=== PATIENT | male | born 1965 | race Caucasian/White ===

== ENCOUNTER 2018-04-26 14:05 | Emergency (ER) | payer MEDICAID, SELFPAY ==
[2018-04-26 14:06] VITALS: BP 138/69; PULSE 100; RESP 17; TEMP 36.7; O2SAT 97; BMI 29.5
--- NOTE | 2018-04-26 14:47 | CT_ITS ---
STUDY: CT BRAIN WITHOUT CONTRAST REASON FOR EXAM: Male, 53 years old. LAC TO HEAD AFTER FALLING, ETOH. RADIATION DOSAGE (If Supplied By Facility): CTDIvol = ( 44.99 ) mGy, DLP = ( 829.85 ) mGycm TECHNIQUE: Transaxial CT imaging of the brain was performed without administration of intravenous contrast material. Individualized dose optimization techniques were used for this CT. COMPARISON: None. FINDINGS: There is a right scalp swelling and small hematoma. There is overlying surgical clips. Normal calvarium. Normal size ventricles and extra-axial spaces for the patient's age. Normal white matter tracts of the cerebral hemispheres. Normal basal ganglia and thalami. Normal brainstem. Normal cerebellum. There is no intracranial hemorrhage. There are no findings of an acute ischemic infarction. Normal visualized paranasal sinuses. CT/Brain/Head without Contrast IMPRESSION: No intracranial hemorrhage. Electronically Signed: Bobby Seay MD at 15:53 EST Tel , Service support ,
[2018-04-26] MEDS: oxyCODONE 5 MG Tablet PO (14:53)
[2018-04-26] MEDS: Diphth,Pertuss(Acell),Tet Vac 0.5 ML Vial IM (15:10)
--- NOTE | 2018-04-26 15:51 | ED.VISSUMM ---
- ER Visit Summary Date of Service: 04/26/18 Chief Complaint: Head and History of Present Illness: The patient is a 53 M presents to the emergency supervisor finishing department injury. Patient states he was watching football today and drinking with his friends. He states he got up and was walking forward. He lost his balance and fell. He struck his head against a corner of the table. He does not think he lost consciousness. The patient did have significant bleeding. It was unable to be controlled at home. He was brought in by squad. The patient does take Plavix. He admits to drinking daily. He denies any other injury. He states his been compliant with his medications. Physical Examination: Vital signs reviewed General: Well-nourished, well-developed Head: Normocephalic, 5 cm full-thickness laceration on the right parietal scalp. There is active bleeding. A calvarium is intact. The subgaleal is intact. Eyes: Pupils equal and reactive, extraocular muscles intact Neck, supple, no lymphadenopathy Heart: Regular rate and rhythm Respiratory: No distress, clear bilaterally Abdomen: Soft, nontender, nondistended, no peritoneal signs Back: Nontender Extremities: Nontender, no edema, no cords Skin: Normal color no rash Neuro: Alert and oriented, no focal or lateralizing deficits Test Results: [] Emergency Department Course and Treatment: The patient presents after mechanical fall. He is on Plavix. I did evaluate his laceration immediately on arrival. He did have some mild bleeding but there was no arterial spurt. His wound was anesthetized immediately. It was closed with 10 artis. Hemostasis was achieved. Patient underwent head CT. There is no evidence of acute intracranial process. The patient was observed. He ambulated throughout the emergency department. He had no evidence of other injury. At this time, I do feel that he is safe for discharge. He was counseled on concerning symptoms and reasons to return. He is a GCS of 15 and no other injury. He will follow-up in 10 days for staple removal. Treatment Plan: [] Disposition: Discharge Impression: 1. Mechanical fall 2. 5 cm scalp laceration with staple closure This note was generated with [employer] dictation software. It may contain incorrect words, spelling, and punctuation that were not noted in review of the chart prior to signing ED Disposition - Plan for ED Patient: Chief Complaint: Laceration Instructions: ED Laceration Scalp Stitch Or Stap Referrals: Stuart Bacon MD [Primary Care Provider] - 10 Day for suture removal
[2018-04-26 16:03] VITALS: BP 134/69; PULSE 77; RESP 16; O2SAT 98
== END 2018-04-26 16:05 | disposition home or self-care (01) ==
LOC: ED 15:33
PROVIDERS: Emergency Provider Emergency Medicine; Family Provider Family Medicine; PCP Family Medicine
DX: S01.01XA Laceration without foreign body of scalp, initial encounter (principal); W18.39XA Other fall on same level, initial encounter; Y93.01 Activity, walking, marching and hiking; Y99.8 Other external cause status; I25.10 Atherosclerotic heart disease of native coronary artery without angina pectoris; I10 Essential (primary) hypertension; Z79.02 Long term (current) use of antithrombotics/antiplatelets; Z79.899 Other long term (current) drug therapy; Z72.0 Tobacco use
CPT/HCPCS: 12002; 70450; 90471; 90715; 99284

== ENCOUNTER 2018-07-10 18:05 | Inpatient (IN) | payer MEDICAID, SELFPAY ==
[2018-07-10] VITALS (8 sets, daily range): BP systolic 146–156; BP diastolic 88–91; PULSE 96–103; RESP 12–22; TEMP 36.8–37.2; O2SAT 85–94; BMI 31.6; BMI 28.0; BMI 28.1
--- NOTE | 2018-07-10 18:17 | EKG12_ITS ---
Test Reason : CP Blood Pressure : / mmHG Vent. Rate : 103 BPM Atrial Rate : 103 BPM P-R Int : 150 ms QRS Dur : 082 ms QT Int : 372 ms P-R-T Axes : 051 054 058 degrees QTc Int : 487 ms Sinus tachycardia Possible Left atrial enlargement Septal infarct , age undetermined Abnormal ECG Confirmed by ROEMRO ARIZMENDI ([id number]), food expeditor ROBERT DIALLO ([id number]) on 07/13/2018 4:36:45 PM Referred By: JEANETTE Confirmed By:ROMERO ARIZMENDI
--- NOTE | 2018-07-10 18:17 | RAD_ITS ---
STUDY: X-RAY CHEST REASON FOR EXAM: Male, 53 years old. Shortness of breath for 3 weeks. TECHNIQUE: PA and lateral views of the chest. COMPARISON: None. FINDINGS: Telemetry wires overlie the chest. The lungs are well expanded. There is atelectasis versus infiltrative changes at the lung bases. There is no demonstrated pleural abnormality. Normal size heart. Normal mediastinum and jazmine. Normal visualized pulmonary arteries. There is atherosclerotic calcification of the aortic arch with tortuosity. Normal visualized thoracic spine. Normal visualized ribs, clavicles, and shoulders. There is no demonstrated abnormality of the visualized soft tissue structures of the upper abdomen. RAD/Chest PA and Lateral IMPRESSION: Atelectasis versus infiltrate at the lung bases. Electronically Signed: Vern Acevedo DO at 18:58 EDT Tel [phone], Service support ,
--- NOTE | 2018-07-10 18:21 | ED.VIS.GEN ---
History of Present Illness Chief Complaint: Chest Pain Detail of Chief Complaint: Shortness of breath, chest pain, productive cough Informant: Patient Onset: Weeks Timing: Intermittent Quality: Central chest pain with coughing times 3 days Location: Central chest Current Severity: Mild Maximum Severity: Moderate Worsened by: Shortness of breath increased with activity Relieved by: Nothing Associated Symptoms: Productive cough and noncompliance with medication Narrative: Patient is a middle-aged gentleman who discontinue taking his meds 1 week ago because of friend dying. He is a smoker of 15 cigarettes/day. He reports productive cough. He reports chest pain with breathing and shortness of breath. States the cough is been present for 2 months. The chest pain and shortness of breath for the past several days. Does report dyspnea on exertion. Denies orthopnea or PND. He does report swelling of his legs. He states he has a stent left lower extremity secondary to peripheral arterial disease. He has no known cardiac disease. - Past Medical History (1) Hypokalemia Status: Acute (2) Hyponatremia Status: Acute (3) Liver mass Status: Acute (4) Seizures Status: Acute (5) PAD (peripheral artery disease) Status: Chronic Past Medical History - Allergies and Home Meds Allergies/Adverse Reactions: Allergies ANTIBIOTIC OINTMENT Adverse Reaction (Uncoded 07/10/18 18:06) Hives Primary Care Physician: Stuart Bacon MD [Primary Care Provider] - Prior records reviewed: Yes Surgical History: - - trauma with left head and face and jaw, s/p trach. Lives: Alone Smoking Status: Current every day smoker Alcohol: Occasional Drugs: None - Family History Sibling Family History: Reports: - - brother is alcoholic Review of Systems General: Reports: Malaise. Denies: Chills, Fever, Sweats, Weight loss Eyes: Denies: Visual changes - bilaterally, Diplopia ENT: Denies: Bilateral ear pain, Rhinorrhea, Sore throat Cardiovascular: Reports: Chest pain. Denies: Palpitations Respiratory: Reports: Dyspnea, Cough, Sputum, Dyspnea on exertion, Paroxysmal nocturnal dyspnea. Denies: Orthopnea Gastrointestinal: Denies: Abdominal pain, Nausea, Vomiting, Diarrhea, Melena, Hematochezia Genitourinary: Denies: Dysuria, Hematuria, Frequency Musculoskeletal: Denies: Back pain, Extremity Pain Skin: Denies: Rash, Wounds Neurological: Denies: Headache, Weakness, Numbness Psych: Reports: Anxiety Hematologic: Denies: Easy bruising, Easy bleeding Allergy: Reports: Uticaria Physical Exam Vital Signs/Narrative: Vital Signs Temp Pulse Resp BP Pulse Ox 07/10/18 18:07 99.0 F 103 H 20 H 146/88 H 85 Inital Vital Signs reviewed: Yes General: Well nourished, Well developed, No Acute Distress, Acute Distress Head: Normocephalic, Atraumatic Eyes: Perrl, EOMI. Negative for: Pale conjunctiva ENT: Moist mucous membranes, No rhinorrhea, TM's clear Neck: Supple, Nontender, No lymphadenopathy, No JVD Cardiovascular: Regular rate, Regular rhythm, No murmurs, Normal S1, Normal S2, Tachycardia Respiratory: Chest nontender, Rhonchi, Wheezing, Diminished, Decreased Air Movement Abdomen: Soft, Nontender, Nondistended, Normal bowel sounds, No masses. Negative for: Hepatomegaly, Splenomegaly Back: Nontender, Normal Inspection Extremities: Nontender, Edema - 1+ pitting edema bilaterally, - - Stigmata of peripheral arterial disease with diminished pulses Skin: Normal color. Negative for: Cyanosis, Jaundice Neurological: Alert, Oriented x3, Cranial nerves II-XII grossly intact, Normal Strength, Normal Sensation, - - Gait was not assessed. Patient has alcohol odor to his breath Psychological: Normal affect, Normal Mood Diagnostic/Tx/Re-eval Chest X-Ray - ED: 2 View, Read by ED Physician, Normal, Heart, Bony Structures, No Acute Disease, Chronic Changes, Left Infiltrate Impressions Chest X-Ray 07/10/18 18:17 IMPRESSION: Atelectasis versus infiltrate at the lung bases. Electronically Signed: Vern Acevedo DO at 18:58 EDT Tel [phone], Service support , Chest CTA 07/10/18 19:12 IMPRESSION: 1. No evidence of pulmonary embolus. 2. No aortic dissection or aneurysm. 3. Patchy nodular infiltrates in the medial right upper lobe, lingula and left lower lobe. Repeat examination following treatment should be considered to rule out underlying mass. 4. Mediastinal and hilar lymphadenopathy. 5. Enlarged fatty infiltrated liver. Electronically Signed: Vern Acevedo DO at 20:13 EDT Tel [phone], Service support , 07/10/18 18:17 Chest PA and Lateral [RAD] Stat 07/10/18 19:12 CTA Chest W/WO Contrast [CT] Stat Laboratory Results 07/10/18 07/10/18 07/10/18 18:18 18:18 18:45 WBC 11.8 H RBC 4.56 L Hgb 14.5 Hct 43.0 MCV 94.3 H MCH 31.8 MCHC 33.7 RDW 13.4 RDW Differential 46.2 H Plt Count 59 L MPV 11.5 Immature Gran % (Auto) 0.300 Neut % (Auto) 72.5 H Lymph % (Auto) 18.2 L [place] % (Auto) 8.6 Eos % (Auto) 0.1 Baso % (Auto) 0.3 Absolute Neuts (auto) 8.6 H Absolute Lymphs (auto) 2.15 Total Counted Not Reportable Sodium 128 L Potassium 3.0 L Chloride 93 L Carbon Dioxide 25.0 Anion Gap 10 BUN 3 L Creatinine 0.53 L Estim Creat Clear Calc 161.19 Est GFR (MDRD) Af Amer 209 Est GFR (MDRD) Non-Af 173 BUN/Creatinine Ratio 5.7 L Glucose 107 H Lactic Acid 1.8 Calcium 7.8 L Troponin I < 0.015 - Rhythm Strip Rhythm Strip: Sinus Rhythm Rate: 110 Ectopy: None - EKG Initial EKG Interpretation: Sinus Rhythm - Ventricular rate is 103. Decreased anterior force. CA interval, QRS duration, QT interval and axis are normal., Sinus Tachycardia - Medical Decision Making Since patient is hypoxic, tachycardic tachypnic with abnormal respiratory sounds will obtain chest x-ray and appropriate blood work. Differential include COPD, bronchitis, influenza, pneumonia, pulmonary embolus and CHF. Doubt the latter to i.e. pulmonary embolus and CHF. Suspect chest pain is secondary to his respiratory illness and not cardiac. Since x-ray was not very remarkable and patient was hypoxic CTA was obtained to look for pulmonary embolus. There is no evidence of pulmonary and was. There is multilobar patchy infiltrates and mediastinal/hilar lymphadenopathy. Patient was treated with DuoNeb, albuterol and IV antibiotics. He will require full admission. ED Disposition - Plan for ED Patient: Disposition: Acute Care Hospital [facility] Diagnosis: Multilobar lung infiltrate, Acute respiratory failure with hypoxia, Mediastinal lymphadenopathy, Bronchospasm, PAD (peripheral artery disease) Referrals: Stuart Bacon MD [Primary Care Provider] -
--- NOTE | 2018-07-10 18:25 | ED.DCSUM_ITS ---
History of Present Illness Chief Complaint: Chest Pain Detail of Chief Complaint: Shortness of breath, chest pain, productive cough Informant: Patient Onset: Weeks Timing: Intermittent Quality: Central chest pain with coughing times 3 days Location: Central chest Current Severity: Mild Maximum Severity: Moderate Worsened by: Shortness of breath increased with activity Relieved by: Nothing Associated Symptoms: Productive cough and noncompliance with medication Narrative: Patient is a middle-aged gentleman who discontinue taking his meds 1 week ago because of friend dying. He is a smoker of 15 cigarettes/day. He reports productive cough. He reports chest pain with breathing and shortness of breath. States the cough is been present for 2 months. The chest pain and shortness of breath for the past several days. Does report dyspnea on exertion. Denies orthopnea or PND. He does report swelling of his legs. He states he has a stent left lower extremity secondary to peripheral arterial disease. He has no known cardiac disease. - Past Medical History (1) Hypokalemia Status: Acute (2) Hyponatremia Status: Acute (3) Liver mass Status: Acute (4) Seizures Status: Acute (5) PAD (peripheral artery disease) Status: Chronic Past Medical History - Allergies and Home Meds Allergies/Adverse Reactions: Allergies ANTIBIOTIC OINTMENT Adverse Reaction (Uncoded 07/10/18 18:06) Hives Primary Care Physician: Stuart Bacon MD [Primary Care Provider] - Prior records reviewed: Yes Surgical History: - - trauma with left head and face and jaw, s/p trach. Lives: Alone Smoking Status: Current every day smoker Alcohol: Occasional Drugs: None - Family History Sibling Family History: Reports: - - brother is alcoholic Review of Systems General: Reports: Malaise. Denies: Chills, Fever, Sweats, Weight loss Eyes: Denies: Visual changes - bilaterally, Diplopia ENT: Denies: Bilateral ear pain, Rhinorrhea, Sore throat Cardiovascular: Reports: Chest pain. Denies: Palpitations Respiratory: Reports: Dyspnea, Cough, Sputum, Dyspnea on exertion, Paroxysmal nocturnal dyspnea. Denies: Orthopnea Gastrointestinal: Denies: Abdominal pain, Nausea, Vomiting, Diarrhea, Melena, Hematochezia Genitourinary: Denies: Dysuria, Hematuria, Frequency Musculoskeletal: Denies: Back pain, Extremity Pain Skin: Denies: Rash, Wounds Neurological: Denies: Headache, Weakness, Numbness Psych: Reports: Anxiety Hematologic: Denies: Easy bruising, Easy bleeding Allergy: Reports: Uticaria Physical Exam Vital Signs/Narrative: Vital Signs Temp Pulse Resp BP Pulse Ox 07/10/18 18:07 99.0 F 103 H 20 H 146/88 H 85 Inital Vital Signs reviewed: Yes General: Well nourished, Well developed, No Acute Distress, Acute Distress Head: Normocephalic, Atraumatic Eyes: Perrl, EOMI. Negative for: Pale conjunctiva ENT: Moist mucous membranes, No rhinorrhea, TM's clear Neck: Supple, Nontender, No lymphadenopathy, No JVD Cardiovascular: Regular rate, Regular rhythm, No murmurs, Normal S1, Normal S2, Tachycardia Respiratory: Chest nontender, Rhonchi, Wheezing, Diminished, Decreased Air Movement Abdomen: Soft, Nontender, Nondistended, Normal bowel sounds, No masses. Negative for: Hepatomegaly, Splenomegaly Back: Nontender, Normal Inspection Extremities: Nontender, Edema - 1+ pitting edema bilaterally, - - Stigmata of peripheral arterial disease with diminished pulses Skin: Normal color. Negative for: Cyanosis, Jaundice Neurological: Alert, Oriented x3, Cranial nerves II-XII grossly intact, Normal Strength, Normal Sensation, - - Gait was not assessed. Patient has alcohol odor to his breath Psychological: Normal affect, Normal Mood Diagnostic/Tx/Re-eval Chest X-Ray - ED: 2 View, Read by ED Physician, Normal, Heart, Bony Structures, No Acute Disease, Chronic Changes, Left Infiltrate Impressions Chest X-Ray 07/10/18 18:17 IMPRESSION: Atelectasis versus infiltrate at the lung bases. Electronically Signed: Vern Acevedo DO at 18:58 EDT Tel [phone], Service support , Chest CTA 07/10/18 19:12 IMPRESSION: 1. No evidence of pulmonary embolus. 2. No aortic dissection or aneurysm. 3. Patchy nodular infiltrates in the medial right upper lobe, lingula and left lower lobe. Repeat examination following treatment should be considered to rule out underlying mass. 4. Mediastinal and hilar lymphadenopathy. 5. Enlarged fatty infiltrated liver. Electronically Signed: Vern Acevedo DO at 20:13 EDT Tel [phone], Service support , 07/10/18 18:17 Chest PA and Lateral [RAD] Stat 07/10/18 19:12 CTA Chest W/WO Contrast [CT] Stat Laboratory Results 07/10/18 07/10/18 07/10/18 18:18 18:18 18:45 WBC 11.8 H RBC 4.56 L Hgb 14.5 Hct 43.0 MCV 94.3 H MCH 31.8 MCHC 33.7 RDW 13.4 RDW Differential 46.2 H Plt Count 59 L MPV 11.5 Immature Gran % (Auto) 0.300 Neut % (Auto) 72.5 H Lymph % (Auto) 18.2 L [place] % (Auto) 8.6 Eos % (Auto) 0.1 Baso % (Auto) 0.3 Absolute Neuts (auto) 8.6 H Absolute Lymphs (auto) 2.15 Total Counted Not Reportable Sodium 128 L Potassium 3.0 L Chloride 93 L Carbon Dioxide 25.0 Anion Gap 10 BUN 3 L Creatinine 0.53 L Estim Creat Clear Calc 161.19 Est GFR (MDRD) Af Amer 209 Est GFR (MDRD) Non-Af 173 BUN/Creatinine Ratio 5.7 L Glucose 107 H Lactic Acid 1.8 Calcium 7.8 L Troponin I < 0.015 - Rhythm Strip Rhythm Strip: Sinus Rhythm Rate: 110 Ectopy: None - EKG Initial EKG Interpretation: Sinus Rhythm - Ventricular rate is 103. Decreased anterior force. RI interval, QRS duration, QT interval and axis are normal., Sinus T achycardia - Medical Decision Making Since patient is hypoxic, tachycardic tachypnic with abnormal respiratory sounds will obtain chest x-ray and appropriate blood work. Differential include COPD, bronchitis, influenza, pneumonia, pulmonary embolus and CHF. Doubt the latter to i.e. pulmonary embolus and CHF. Suspect chest pain is secondary to his respiratory illness and not cardiac. Since x-ray was not very remarkable and patient was hypoxic CTA was obtained to look for pulmonary embolus. There is no evidence of pulmonary and was. There is multilobar patchy infiltrates and mediastinal/hilar lymphadenopathy. Patient was treated with DuoNeb, albuterol and IV antibiotics. He will require full admission. ED Disposition - Plan for ED Patient: Disposition: Acute Care [facility] Diagnosis: Multilobar lung infiltrate, Acute respiratory failure with hypoxia, Mediastinal lymphadenopathy, Bronchospasm, PAD (peripheral artery disease) Referrals: Stuart Bacon MD [Primary Care Provider] -
[2018-07-10] MEDS: 0.9% Normal Saline 1,000 ML 150 ML IV (18:47)
[2018-07-10 18:54] LABS: Absolute Lymphocyte Count 2.15 X10^3/ul (0.83-4.51); Absolute Neutrophil Count 8.6 X10^3/uL (2.0-7.7); Basophil# 0.03 X10^3/uL; Basophil% 0.3 % (0-1); Eosinophil# 0.01 X10^3/uL; Eosinophils% 0.1 % (0-5); Hemoglobin 14.5 g/dl (13.0-16.5); Lymphocyte # 2.15 X10^3/ul (4.0); Lymphocyte % 18.2 % (19-41); Mean Corp Hgb Conc 33.7 g/gl (32-36); Mean Corpuscular Hgb 31.8 pg (27.0-32.0); Mean Corpuscular Volume 94.3 fL (80-94); Mean Platelet Vol. 11.5 fl (6.2-12.0); Monocyte# 1.02 X10^3/uL; Monocyte% 8.6 % (0-10); Neutrophil % 72.5 % (47-70); Platelet Count 59 K/mm3 (150-450); RBC Distribution Width CV 13.4 % (11.6-14.6); RBC Distribution Width SD 46.2 fl (35.1-43.9); Red Blood Count 4.56 M/mm3 (4.6-6.2); White Blood Count 11.8 K/mm3 (4.4-11.0)
[2018-07-10 18:55] LABS: POSITIVE COUNT NO; POSITIVE DIFFERENTIAL NO; POSITIVE MORPHOLOGY NO
[2018-07-10 19:06] LABS: Anion Gap 10 (5-15); BUN 3 mg/dL (7-18); BUN/Creat Ratio 5.7 RATIO (10-20); Calcium,Total 7.8 mg/dL (8.5-10.1); Chloride 93 mmol/L (98-107); Creatinine, Serum 0.53 mg/dL (0.70-1.30); EST Glomerular Filtration Rate 173 mL/min (>60); Est Glom Filt Rate - Afr Amer 209 mL/min (>60); Estimated Creatinine Clearance 161.19 ml/min; Glucose 107 mg/dL (74-106); Sodium Level 128 mmol/L (136-145)
--- NOTE | 2018-07-10 19:12 | CT_ITS ---
STUDY: CTA CHEST REASON FOR EXAM: Male, 53 years old. Hypoxia. Pulse oximeter 84%. RADIATION DOSAGE (If Supplied By Facility): CTDIvol = ( 12.09 ) mGy, DLP = ( 525.87 ) mGycm TECHNIQUE: The examination was performed with the intravenous administration of Isovue 370 100ML IV. Post-processing of the angiographic images was performed, with multiplanar reformation and 3D reconstruction. Individualized dose optimization techniques were used for this CT. COMPARISON: Chest, July 10, 2018. FINDINGS: Normal enhancement of the main pulmonary artery and right and left pulmonary arteries. Normal enhancement of the bilateral peripheral pulmonary arteries. There is no demonstrated pulmonary embolism. There is mild atherosclerosis of the thoracic aorta without aneurysm. There is no demonstrated aortic dissection. Normal heart and pericardium. There are calcifications of the coronary arteries. There is prevascular, AP window and subcarinal lymphadenopathy. Largest node in the subcarinal region. Measures 1.2 x 3.6 x 1.9 cm. There is minimal hilar lymphadenopathy. Normal visualized trachea and bronchi. The lungs are well expanded. There is evidence of a nodular infiltrate in the anteromedial right upper lobe there is also a 8 mm nodular density slightly more lateral in the right upper lobe best seen on image 141 of series 2. There is a patchy density in the lingula as well as infiltrate at the left lung base. Normal pleura. Normal chest wall structures. Normal osseous structures. There is diffuse fatty infiltration of an enlarged liver. Remainder of the visualized upper abdomen is normal. CT/CTA Chest W/WO Contrast IMPRESSION: 1. No evidence of pulmonary embolus. 2. No aortic dissection or aneurysm. 3. Patchy nodular infiltrates in the medial right upper lobe, lingula and left lower lobe. Repeat examination following treatment should be considered to rule out underlying mass. 4. Mediastinal and hilar lymphadenopathy. 5. Enlarged fatty infiltrated liver. Electronically Signed: Vern Acevedo DO at 20:13 EDT Tel [phone], Service support ,
[2018-07-10] MEDS: Morphine 4 MG/ML Syringe IV (19:17)
[2018-07-10] MEDS: Ondansetron 4 MG/2 ML Vial IV (19:17)
[2018-07-10] MEDS: Albuterol 2.5 MG/3 ML VIAL.NEB. INHALATION (19:18)
[2018-07-10] MEDS: Ipratropium/Albuterol Sulfate 3 ML AMPUL.NEB INHALATION ×2 (19:18→23:28)
[2018-07-10 19:20] LABS: Lactic Acid 1.8 mmol/L (0.4-2.0)
[2018-07-10] MEDS: levoFLOXacin IV 750 MG/150 ML BAG 100 MG IV (20:25)
[2018-07-10] MEDS: MethylPREDNISolone 125 MG/2 ML Vial 60 MG IV (20:25)
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
--- NOTE | 2018-07-10 21:15 | CPS ---
Pt taken off of bipap and placed on 50% venturi mask for transport to PCU 125.
[2018-07-10 21:50] LABS: Magnesium 1.8 mg/dL (1.6-2.6); Phosphorus 2.7 mg/dL (2.5-4.9)
[2018-07-10 22:33] LABS: AST(SGOT) 73 U/L (15-37); Alanine Aminotransfer ALT/SGPT 55 U/L (16-61); Albumin, Serum 3.2 g/dL (3.2-5.0); Alkaline Phosphatase 88 U/L (45-117); Bilirubin, Direct 0.14 mg/dL (0.00-0.30); Globulin 4.8 g/dL (2.2-4.2)
[2018-07-10 22:57] LABS: Amphetamine Urine VISTA NEGATIVE (<1000 ng/mL); Barbiturate Urine VISTA NEGATIVE (< 200 ng/mL); Benzodiazepine Urine VISTA NEGATIVE (< 200 ng/mL); Cocaine Urine VISTA NEGATIVE (< 300 ng/mL); Ecstacy Urine VISTA NEGATIVE (< 500 ng/mL); Methadone Urine VISTA NEGATIVE (< 300 ng/mL); PCP Urine VISTA NEGATIVE (< 25 ng/mL); THC Urine VISTA NEGATIVE (< 50 ng/mL); Vista UDS pH Range 6
[2018-07-10] MEDS: Ceftriaxone 1 GM/50 ML BAG IV (23:24)
[2018-07-10] MEDS: guaiFENesin 1,200 MG Tablet 1200 MG PO (23:28)
[2018-07-10] MEDS: levETIRAcetam 1,000 MG Tablet 1000 MG PO (23:29)
[2018-07-10] MEDS: 0.9% NaCl Peripheral Flush Adult/Peds IV (23:33)
[2018-07-11] VITALS (26 sets, daily range): BP systolic 137–190; BP diastolic 72–102; PULSE 78–113; RESP 14–24; TEMP 36.4–36.8; O2SAT 91–99
--- NOTE | 2018-07-11 00:05 | NURSING ---
One beer given to pt. at this time as per nurse communication orders. Pt. drinking this beer at this time.
[2018-07-11] MEDS: 0.9% Normal Saline 1,000 ML 125 ML IV ×2 (03:49→21:19)
[2018-07-11] MEDS: 0.9% NaCl Peripheral Flush Adult/Peds IV (05:31)
[2018-07-11] MEDS: Ipratropium/Albuterol Sulfate 3 ML AMPUL.NEB INHALATION ×5 (06:34→22:52)
--- NOTE | 2018-07-11 06:52 | CPS ---
pt placed on 6L HFNC, spo2 91%
--- NOTE | 2018-07-11 07:12 | NURSING ---
One can of beer given to pt. per his request. Pt. states he drinks his first beer early in the morning before he eats anything.
[2018-07-11] MEDS: Thiamine Hydrochloride 100 MG Tablet PO ×2 (08:37→16:19)
[2018-07-11] MEDS: Aspirin 81 MG TAB.CHEW PO (08:37)
[2018-07-11] MEDS: Multivitamins,Ther W-Minerals Tablet 1 TABLET PO (08:37)
[2018-07-11] MEDS: Folic Acid 1 MG Tablet PO (08:37)
[2018-07-11] MEDS: oxyCODONE 5 MG Tablet PO ×3 (08:41→22:18)
[2018-07-11] MEDS: Pantoprazole Sodium 40 MG Tablet PO (09:26)
[2018-07-11] MEDS: Lisinopril 20 MG Tablet PO (09:26)
[2018-07-11] MEDS: Clopidogrel Bisulfate 75 MG Tablet PO (09:26)
[2018-07-11] MEDS: guaiFENesin 1,200 MG Tablet 1200 MG PO ×2 (09:27→21:21)
[2018-07-11] MEDS: Enoxaparin 40 MG/0.4 ML Syringe SC (09:27)
[2018-07-11] MEDS: Paroxetine 20 MG Tablet PO (09:27)
[2018-07-11] MEDS: levETIRAcetam 1,000 MG Tablet 1000 MG PO ×2 (09:34→21:21)
[2018-07-11] MEDS: amLODIPine 10 MG Tablet PO (09:35)
--- NOTE | 2018-07-11 10:13 | NURSING ---
Patient given beer per ordered dose at this time. Full can administered at this time.
[2018-07-11] MEDS: hydrALAZINE 20 MG/ML Vial 10 MG IV (11:01)
--- NOTE | 2018-07-11 13:00 | PCM.PN.HOSP ---
Patient Problems: Active and Suspected Problems Multilobar lung infiltrate (Acute) Acute respiratory failure with hypoxia (Acute) Mediastinal lymphadenopathy (Acute) Bronchospasm (Acute) Sepsis (Acute) Subjective: Patient was admitted with a complaint of shortness of breath and pleuritic chest pain with associated subjective fever and chills and a cough productive of clear sputum as well as wheezing and upper respiratory tract symptoms. Chest x-ray showed atelectasis versus infiltrate in bilateral lower lung bases. CT of chest showed patchy nodular infiltrates in the right medial upper lobe and left lower lobe as well as in the mediastinal hilar lymphadenopathy. He is being managed for sepsis due to multilobar community acquired pneumonia as well as acute hypoxic and hypercarbic respiratory failure. Patient seen and examined. He still is short of breath but states is better. He is on 5 L of oxygen but is not on oxygen at home. He still has a cough which is productive of clear sputum. He denies any palpitations or dizziness, abdominal pain, diarrhea vomiting. Review of systems otherwise negative. Of note, he was saturating at 85% on room air on admission. Labs and vitals reviewed. Vitals/I&O's: Vital Signs Temp Pulse Resp BP Pulse Ox 97.6 F L 98 20 H 160/72 H 94 07/11/18 10:47 07/11/18 11:01 07/11/18 10:59 07/11/18 12:28 07/11/18 10:47 Oxygen Flow Rate (L/min) 6 Oxygen Delivery Method Nasal Cannula Weight: 195 lb 15.855 oz Body Mass Index (BMI) 28.0 Finger Stick Blood Glucose 103 Intake and Output for Last 24 Hours 07/09/18 07/10/18 07/11/18 23:59 23:59 23:59 Intake Total 566 / 566 2138 / 2138 Output Total 500 / 500 1075 / 1075 Balance 66 / 66 1063 / 1063 General: Alert, Oriented x3, Cooperative, No apparent distress HEENT: Atraumatic, PERRLA, EOMI, Normocephalic Oral: Dry Mucosa Neck: Supple, No JVD, Negative Carotid Bruits Lungs: - - has coarse crackles in mid and lower lung coto, with wheezing. on 6L of oxygen Cardiovascular: Regular rate, Regular Rhythm, Normal S1, Normal S2, No murmurs Abdomen: Bowel Sounds Present, Soft, Non Tender, Non-Distended, No Hepato-splenomegaly Extremities: No clubbing, No cyanosis, No edema, Capillary Refill Less than 3 Seconds Skin: No rashes, No breakdown Musculoskeletal: No Tenderness to Palpation of Joints or Extremities Lymphatic: No Cervical, Supraclavicular, or Inguinal Adenopathy Neurological: Cranial nerves II-XII grossly intact, Neuro grossly intact, Motor Exam 5/5 strength throughout Psych/Mental Status: Normal Affect, Appropriate, Alert and oriented to time, place, person, mood and affect Microbiology Past 72 Hours 07/10/18 22:20 Urine, Clean Catch Streptococcus pneumoniae Antigen (M - Final 07/10/18 22:20 Urine, Clean Catch Legionella Antigen - Final Laboratory Results 07/10/18 18:18: WBC 11.8 H, RBC 4.56 L, Hgb 14.5, Hct 43.0, MCV 94.3 H, MCH 31.8, MCHC 33.7, RDW 13.4, RDW Differential 46.2 H, Plt Count 59 L, MPV 11.5, Immature Gran % (Auto) 0.300, Neut % (Auto) 72.5 H, Lymph % (Auto) 18.2 L, [place] % (Auto) 8.6, Eos % (Auto) 0.1, Baso % (Auto) 0.3, Absolute Neuts (auto) 8.6 H, Absolute Lymphs (auto) 2.15, Total Counted Not Reportable 07/10/18 18:18: Sodium 128 L, Potassium 3.0 L, Chloride 93 L, Carbon Dioxide 25.0, Anion Gap 10, BUN 3 L, Creatinine 0.53 L, Estim Creat Clear Calc 161.19, Est GFR (MDRD) Af Amer 209, Est GFR (MDRD) Non-Af 173, BUN/Creatinine Ratio 5.7 L, Glucose 107 H, Calcium 7.8 L, Troponin I < 0.015 07/10/18 18:18: Total Bilirubin 0.40, Direct Bilirubin 0.14, AST 73 H, ALT 55, Alkaline Phosphatase 88, Total Protein 8.0, Albumin 3.2, Globulin 4.8 H 07/10/18 18:18: Phosphorus 2.7, Magnesium 1.8 07/10/18 18:18: Ethyl Alcohol 322.0 H* 07/10/18 18:45: Lactic Acid 1.8 03/15/19 22:20: Urine Opiates Screen POSITIVE H, Urine Methadone Screen NEGATIVE, Ur Barbiturates Screen NEGATIVE, Ur Phencyclidine Scrn NEGATIVE, Ur Amphetamines Screen NEGATIVE, U Methamphetamin-MDMA NEGATIVE, U Benzodiazepines Scrn NEGATIVE, Urine Cocaine Screen NEGATIVE, U Cannabinoids Screen NEGATIVE, Ur Drug Screen Comment Diagnostic Data Chest X-Ray 07/10/18 18:17 IMPRESSION: Atelectasis versus infiltrate at the lung bases. Electronically Signed: Vern Acevedo DO at 18:58 EDT Tel [phone], Service support , Chest CTA 07/10/18 19:12 IMPRESSION: 1. No evidence of pulmonary embolus. 2. No aortic dissection or aneurysm. 3. Patchy nodular infiltrates in the medial right upper lobe, lingula and left lower lobe. Repeat examination following treatment should be considered to rule out underlying mass. 4. Mediastinal and hilar lymphadenopathy. 5. Enlarged fatty infiltrated liver. Electronically Signed: Vern Acevedo DO at 20:13 EDT Tel [phone], Service support , Current Medications Acetaminophen (Tylenol) 650 mg PO Q4H PRN PRN PRN Reason: Fever, pain Al Hydroxide/Mg Hydroxide (Mylanta Ii) 30 ml PO Q6H PRN PRN PRN Reason: Gastric Burning Albuterol Sulfate (Ventolin Aerosols) 2.5 mg INHALATION Q2H PRN PRN PRN Reason: SHORTNESS OF BREATH Albuterol/Ipratropium (Duoneb) 3 ml INHALATION Q4H.RT [facility] Last Admin: 07/11/18 10:58 Dose: 3 ml Amlodipine Besylate (Norvasc) 10 mg PO DAILY [facility] Last Admin: 07/11/18 09:35 Dose: 10 mg Aspirin (Aspirin, Baby) 81 mg PO DAILY@0800 [facility] Last Admin: 07/11/18 08:37 Dose: 81 mg Clopidogrel Bisulfate (Plavix) 75 mg PO DAILY [facility] Last Admin: 07/11/18 09:26 Dose: 75 mg Docusate Sodium (Colace) 200 mg PO BID PRN PRN PRN Reason: Constipation Enoxaparin Sodium (Lovenox) 40 mg SC DAILY@1000 [facility] Last Admin: 07/11/18 09:27 Dose: 40 mg Folic Acid (Folic Acid) 1 mg PO DAILY@0800 [facility] Stop: 07/13/18 08:01 Last Admin: 07/11/18 08:37 Dose: 1 mg Guaifenesin (Mucinex) 1,200 mg PO BID [facility] Last Admin: 07/11/18 09:27 Dose: 1,200 mg Hydralazine HCl (Apresoline Iv) 10 mg IV Q4H PRN PRN PRN Reason: SBP > 160 Last Admin: 07/11/18 11:01 Dose: 10 mg Sodium Chloride () 1,000 mls @ 125 mls/hr IV .Q8H [facility] Last Admin: 07/11/18 08:29 Dose: Not Given Azithromycin 500 mg/ Dextrose 255 mls @ 250 mls/hr IV Q24H [facility] Stop: 07/12/18 23:02 Last Admin: 07/10/18 23:57 Dose: 250 mls/hr Ceftriaxone Sodium (Rocephin) 1 gm in 50 mls @ 100 mls/hr IV Q24H [facility] Last Admin: 07/10/18 23:24 Dose: 100 mls/hr Levetiracetam (Keppra Tablet) 1,000 mg PO BID [facility] Last Admin: 07/11/18 09:34 Dose: 1,000 mg Lisinopril (Zestril) 20 mg PO DAILY [facility] Last Admin: 07/11/18 09:26 Dose: 20 mg Lorazepam (Ativan) 2 mg PO Q2H PRN PRN; Protocol PRN Reason: CIWA score > 8 but <15 Lorazepam (Ativan) 2 mg PO UD PRN; Protocol PRN Reason: CIWA score >/=15. Lorazepam (Ativan) 2 mg IV Q2H PRN PRN; Protocol PRN Reason: CIWA score > 8 but <15 Lorazepam (Ativan) 2 mg IV UD PRN; Protocol PRN Reason: CIWA score >/=15. Magnesium Hydroxide (Milk Of Magnesia) 30 ml PO DAILY PRN PRN Reason: Constipation Methylprednisolone (Solu-Medrol) 40 mg IV Q8 [facility] Last Admin: 07/11/18 05:32 Dose: 40 mg Multivitamins/Minerals ([facility]ivitamin With Minerals) [facility] Last Admin: 07/11/18 08:37 Dose: 1 tablet Nicotine (Nicoderm Cq (Pbkc)) 21 mg TRANSDERM. DAILY [facility] Last Admin: 07/11/18 09:27 Dose: 21 mg Nutritional Formula (Lactose Free) (Ensure Enlive) 120 ml PO 4X/DAY [facility] Ondansetron HCl (Zofran) 4 mg IV Q8H PRN PRN PRN Reason: Nausea Oxycodone HCl (Oxyir) 5 mg PO Q4H PRN PRN PRN Reason: Moderate Pain (pain scale 4-5) Last Admin: 07/11/18 08:41 Dose: 5 mg Pantoprazole Sodium (Protonix) 40 mg PO DAILY [facility] Last Admin: 07/11/18 09:26 Dose: 40 mg Paroxetine HCl (Paxil) 20 mg PO DAILY [facility] Last Admin: 07/11/18 09:27 Dose: 20 mg Sodium Chloride () 5 - 15 ml IV UD PRN PRN Reason: SALINE FLUSH Last Admin: 07/11/18 05:31 Dose: 10 ml Thiamine HCl ([facility]itamin B1) [facility] Stop: 07/13/18 17:01 Last Admin: 07/11/18 08:37 Dose: 100 mg Medical Necessity - Tobacco Use Smoking Status: Current every day smoker Tobacco Use: Cigarettes Assessment/Plan All Active Problems Multilobar lung infiltrate (Acute) Acute respiratory failure with hypoxia (Acute) Mediastinal lymphadenopathy (Acute) Bronchospasm (Acute) Sepsis (Acute) Liver mass (Acute) Hyponatremia (Acute) Hypokalemia (Acute) 1. Sepsis due to community acquired pneumonia SIRS criteria- 1/4 (tachypnea) white cell count was 11.8. on IV ceftriaxone and azithromycin on breathing treatments on IV solumedrol Titrate oxygen to maintain saturation more than 92%. 2. Acute hypoxemic respiratory failure due to community-acquired pneumonia Was requiring up to 15 L of oxygen on admission and was transitioned to BiPAP. Now on 6 L of oxygen On breathing treatments with duo nebs. titrate oxygen to maintain sats>90% on IV solumedrol 3. Hypokalemia: K was 3 on admission. will replace and monitor and check Mg level. 4. Seizure disorder: on Keppra 5. Thrombocytopenia: platelets are 59. Chronic since 2017. 6. Hyponatremia: Na is 128. Is chronic. Na has been low since 2017. will check serum osmolality. 7. Alcohol abuse: drinks 9 12 oz cans daily. requested beer regimen as per dietary to prevent alcohol withdrawal. monitor CIWA score 8. PAD s/p LLE stent: on plavix and statin therapy 9. Anxiety and depression: on paroxetine and trazodone. DVT prophylaxis: SCDs; lovenox dc'd o/a of low platelets Code Visit Inpatient E&M: 60574 Subs Hosp L3
--- NOTE | 2018-07-11 13:04 | PN_ITS ---
Patient Problems: Active and Suspected Problems Multilobar lung infiltrate (Acute) Acute respiratory failure with hypoxia (Acute) Mediastinal lymphadenopathy (Acute) Bronchospasm (Acute) Sepsis (Acute) Subjective: Patient was admitted with a complaint of shortness of breath and pleuritic chest pain with associated subjective fever and chills and a cough productive of clear sputum as well as wheezing and upper respiratory tract symptoms. Chest x-ray showed atelectasis versus infiltrate in bilateral lower lung bases. CT of chest showed patchy nodular infiltrates in the right medial upper lobe and left lower lobe as well as in the mediastinal hilar lymphadenopathy. He is being managed for sepsis due to multilobar community acquired pneumonia as well as acute hypoxic and hypercarbic respiratory failure. Patient seen and examined. He still is short of breath but states is better. He is on 5 L of oxygen but is not on oxygen at home. He still has a cough which is productive of clear sputum. He denies any palpitations or dizziness, abdominal pain, diarrhea vomiting. Review of systems otherwise negative. Of note, he was saturating at 85% on room air on admission. Labs and vitals reviewed. Vitals/I&O's: Vital Signs Temp Pulse Resp BP Pulse Ox 97.6 F L 98 20 H 160/72 H 94 07/11/18 10:47 07/11/18 11:01 07/11/18 10:59 07/11/18 12:28 07/11/18 10:47 Oxygen Flow Rate (L/min) 6 Oxygen Delivery Method Nasal Cannula Weight: 195 lb 15.855 oz Body Mass Index (BMI) 28.0 Finger Stick Blood Glucose 103 Intake and Output for Last 24 Hours 07/09/18 07/10/18 07/11/18 23:59 23:59 23:59 Intake Total 566 / 566 2138 / 2138 Output Total 500 / 500 1075 / 1075 Balance 66 / 66 1063 / 1063 General: Alert, Oriented x3, Cooperative, No apparent distress HEENT: Atraumatic, PERRLA, EOMI, Normocephalic Oral: Dry Mucosa Neck: Supple, No JVD, Negative Carotid Bruits Lungs: - - has coarse crackles in mid and lower lung coto, with wheezing. on 6L of oxygen Cardiovascular: Regular rate, Regular Rhythm, Normal S1, Normal S2, No murmurs Abdomen: Bowel Sounds Present, Soft, Non Tender, Non-Distended, No Hepato- splenomegaly Extremities: No clubbing, No cyanosis, No edema, Capillary Refill Less than 3 Seconds Skin: No rashes, No breakdown Musculoskeletal: No Tenderness to Palpation of Joints or Extremities Lymphatic: No Cervical, Supraclavicular, or Inguinal Adenopathy Neurological: Cranial nerves II-XII grossly intact, Neuro grossly intact, Motor Exam 5/5 strength throughout Psych/Mental Status: Normal Affect, Appropriate, Alert and oriented to time, place, person, mood and affect Microbiology Past 72 Hours 07/10/18 22:20 Urine, Clean Catch Streptococcus pneumoniae Antigen (M - Final 07/10/18 22:20 Urine, Clean Catch Legionella Antigen - Final Laboratory Results 07/10/18 18:18: WBC 11.8 H, RBC 4.56 L, Hgb 14.5, Hct 43.0, MCV 94.3 H, MCH 31.8, MCHC 33.7, RDW 13.4, RDW Differential 46.2 H, Plt Count 59 L, MPV 11.5, Immature Gran % (Auto) 0.300, Neut % (Auto) 72.5 H, Lymph % (Auto) 18.2 L, [place] % (Auto) 8.6, Eos % (Auto) 0.1, Baso % (Auto) 0.3, Absolute Neuts (auto) 8.6 H, Absolute Lymphs (auto) 2.15, Total Counted Not Reportable 07/10/18 18:18: Sodium 128 L, Potassium 3.0 L, Chloride 93 L, Carbon Dioxide 25.0, Anion Gap 10, BUN 3 L, Creatinine 0.53 L, Estim Creat Clear Calc 161.19, Est GFR (MDRD) Af Amer 209, Est GFR (MDRD) Non-Af 173, BUN/Creatinine Ratio 5.7 L, Glucose 107 H, Calcium 7.8 L, Troponin I < 0.015 07/10/18 18:18: Total Bilirubin 0.40, Direct Bilirubin 0.14, AST 73 H, ALT 55, Alkaline Phosphatase 88, Total Protein 8.0, Albumin 3.2, Globulin 4.8 H 07/10/18 18:18: Phosphorus 2.7, Magnesium 1.8 07/10/18 18:18: Ethyl Alcohol 322.0 H* 07/10/18 18:45: Lactic Acid 1.8 03/15/19 22:20: Urine Opiates Screen POSITIVE H, Urine Methadone Screen NEGATIVE, Ur Barbiturates Screen NEGATIVE, Ur Phencyclidine Scrn NEGATIVE, Ur Amphetamines Screen NEGATIVE, U Methamphetamin-MDMA NEGATIVE, U Benzodiazepines Scrn NEGATIVE, Urine Cocaine Screen NEGATIVE, U Cannabinoids Screen NEGATIVE, Ur Drug Screen Comment Diagnostic Data Chest X-Ray 07/10/18 18:17 IMPRESSION: Atelectasis versus infiltrate at the lung bases. Electronically Signed: Vern Acevedo DO at 18:58 EDT Tel [phone], Service support , Chest CTA 07/10/18 19:12 IMPRESSION: 1. No evidence of pulmonary embolus. 2. No aortic dissection or aneurysm. 3. Patchy nodular infiltrates in the medial right upper lobe, lingula and left lower lobe. Repeat examination following treatment should be considered to rule out underlying mass. 4. Mediastinal and hilar lymphadenopathy. 5. Enlarged fatty infiltrated liver. Electronically Signed: Vern Acevedo DO at 20:13 EDT Tel [phone], Service support , Current Medications Acetaminophen (Tylenol) 650 mg PO Q4H PRN PRN PRN Reason: Fever, pain Al Hydroxide/Mg Hydroxide (Mylanta Ii) 30 ml PO Q6H PRN PRN PRN Reason: Gastric Burning Albuterol Sulfate (Ventolin Aerosols) 2.5 mg INHALATION Q2H PRN PRN PRN Reason: SHORTNESS OF BREATH Albuterol/Ipratropium (Duoneb) 3 ml INHALATION Q4H.RT [facility] Last Admin: 07/11/18 10:58 Dose: 3 ml Amlodipine Besylate (Norvasc) 10 mg PO DAILY [facility] Last Admin: 07/11/18 09:35 Dose: 10 mg Aspirin (Aspirin, Baby) 81 mg PO DAILY@0800 [facility] Last Admin: 07/11/18 08:37 Dose: 81 mg Clopidogrel Bisulfate (Plavix) 75 mg PO DAILY [facility] Last Admin: 07/11/18 09:26 Dose: 75 mg Docusate Sodium (Colace) 200 mg PO BID PRN PRN PRN Reason: Constipation Enoxaparin Sodium (Lovenox) 40 mg SC DAILY@1000 [facility] Last Admin: 07/11/18 09:27 Dose: 40 mg Folic Acid (Folic Acid) 1 mg PO DAILY@0800 [facility] Stop: 07/13/18 08:01 Last Admin: 07/11/18 08:37 Dose: 1 mg Guaifenesin (Mucinex) 1,200 mg PO BID [facility] Last Admin: 07/11/18 09:27 Dose: 1,200 mg Hydralazine HCl (Apresoline Iv) 10 mg IV Q4H PRN PRN PRN Reason: SBP > 160 Last Admin: 07/11/18 11:01 Dose: 10 mg Sodium Chloride () 1,000 mls @ 125 mls/hr IV .Q8H [facility] Last Admin: 07/11/18 08:29 Dose: Not Given Azithromycin 500 mg/ Dextrose 255 mls @ 250 mls/hr IV Q24H [facility] Stop: 07/12/18 23:02 Last Admin: 07/10/18 23:57 Dose: 250 mls/hr Ceftriaxone Sodium (Rocephin) 1 gm in 50 mls @ 100 mls/hr IV Q24H [facility] Last Admin: 07/10/18 23:24 Dose: 100 mls/hr Levetiracetam (Keppra Tablet) 1,000 mg PO BID [facility] Last Admin: 07/11/18 09:34 Dose: 1,000 mg Lisinopril (Zestril) 20 mg PO DAILY [facility] Last Admin: 07/11/18 09:26 Dose: 20 mg Lorazepam (Ativan) 2 mg PO Q2H PRN PRN; Protocol PRN Reason: CIWA score > 8 but <15 Lorazepam (Ativan) 2 mg PO UD PRN; Protocol PRN Reason: CIWA score >/=15. Lorazepam (Ativan) 2 mg IV Q2H PRN PRN; Protocol PRN Reason: CIWA score > 8 but <15 Lorazepam (Ativan) 2 mg IV UD PRN; Protocol PRN Reason: CIWA score >/=15. Magnesium Hydroxide (Milk Of Magnesia) 30 ml PO DAILY PRN PRN Reason: Constipation Methylprednisolone (Solu-Medrol) 40 mg IV Q8 [facility] Last Admin: 07/11/18 05:32 Dose: 40 mg Multivitamins/Minerals (Multivitamin With Minerals) 1 tablet PO DAILYCM [facility] Last Admin: 07/11/18 08:37 Dose: 1 tablet Nicotine (Nicoderm Cq (Pbkc)) 21 mg TRANSDERM. DAILY [facility] Last Admin: 07/11/18 09:27 Dose: 21 mg Nutritional Formula (Lactose Free) (Ensure Enlive) 120 ml PO 4X/DAY [facility] Ondansetron HCl (Zofran) 4 mg IV Q8H PRN PRN PRN Reason: Nausea Oxycodone HCl (Oxyir) 5 mg PO Q4H PRN PRN PRN Reason: Moderate Pain (pain scale 4-5) Last Admin: 07/11/18 08:41 Dose: 5 mg Pantoprazole Sodium (Protonix) 40 mg PO DAILY [facility] Last Admin: 07/11/18 09:26 Dose: 40 mg Paroxetine HCl (Paxil) 20 mg PO DAILY [facility] Last Admin: 07/11/18 09:27 Dose: 20 mg Sodium Chloride () 5 - 15 ml IV UD PRN PRN Reason: SALINE FLUSH Last Admin: 07/11/18 05:31 Dose: 10 ml [facility]: 07/13/18 17:01 Last Admin: 07/11/18 08:37 Dose: 100 mg Medical Necessity - Tobacco Use Smoking Status: Current every day smoker Tobacco Use: Cigarettes Assessment/Plan All Active Problems Multilobar lung infiltrate (Acute) Acute respiratory failure with hypoxia (Acute) Mediastinal lymphadenopathy (Acute) Bronchospasm (Acute) Sepsis (Acute) Liver mass (Acute) Hyponatremia (Acute) Hypokalemia (Acute) 1. Sepsis due to community acquired pneumonia * SIRS criteria- / (tachypnea) * white cell count was 11.8. * on IV ceftriaxone and azithromycin * on breathing treatments * on IV solumedrol * Titrate oxygen to maintain saturation more than 92%. * 2. Acute hypoxemic respiratory failure due to community-acquired pneumonia * Was requiring up to 15 L of oxygen on admission and was transitioned to BiPAP. Now on 6 L of oxygen * On breathing treatments with duo nebs. * titrate oxygen to maintain sats>90% * on IV solumedrol * 3. Hypokalemia: K was 3 on admission. will replace and monitor and check Mg level. 4. Seizure disorder: on Keppra 5. Thrombocytopenia: platelets are 59. Chronic since 2017. 6. Hyponatremia: * Na is 128. * Is chronic. Na has been low since 2017. * will check serum osmolality. * 7. Alcohol abuse: * drinks 9 12 oz cans daily. * requested beer regimen as per dietary to prevent alcohol withdrawal. * monitor CIWA score * 8. PAD s/p LLE stent: on plavix and statin therapy 9. Anxiety and depression: on paroxetine and trazodone. DVT prophylaxis: SCDs; lovenox dc'd o/a of low platelets Code Visit Inpatient E&M: 48084 Subs Hosp L3
[2018-07-11 14:20] LABS: Absolute Neutrophil Count 11.2 X10^3/uL (2.0-7.7); Basophil# 0.01 X10^3/uL; Basophil% 0.1 % (0-1); Hematocrit 44.8 % (40-54); Lymphocyte % 2.5 % (19-41); Mean Corp Hgb Conc 33.5 g/gl (32-36); Mean Corpuscular Volume 95.5 fL (80-94); Mean Platelet Vol. 10.6 fl (6.2-12.0); Monocyte# 0.57 X10^3/uL; Monocyte% 4.7 % (0-10); Neutrophil % 92.5 % (47-70); Platelet Count 45 K/mm3 (150-450); RBC Distribution Width CV 13.5 % (11.6-14.6); RBC Distribution Width SD 46.7 fl (35.1-43.9); Red Blood Count 4.69 M/mm3 (4.6-6.2); White Blood Count 12.1 K/mm3 (4.4-11.0)
[2018-07-11 14:21] LABS: Differential Indicated SCAN CRITERIA MET; POSITIVE COUNT YES; POSITIVE DIFFERENTIAL YES; POSITIVE MORPHOLOGY NO
[2018-07-11 14:43] LABS: Platelet Estimate MKD DEC (ADEQ)
[2018-07-11 14:46] LABS: Anion Gap 5 (5-15); BUN 5 mg/dL (7-18); BUN/Creat Ratio 7.8 RATIO (10-20); Calcium,Total 7.9 mg/dL (8.5-10.1); Chloride 97 mmol/L (98-107); Creatinine, Serum 0.64 mg/dL (0.70-1.30); EST Glomerular Filtration Rate 138 mL/min (>60); Est Glom Filt Rate - Afr Amer 167 mL/min (>60); Estimated Creatinine Clearance 137.83 ml/min; Glucose 204 mg/dL (74-106); Magnesium 1.7 mg/dL (1.6-2.6); Potassium 3.2 mmol/L (3.5-5.1); Sodium Level 132 mmol/L (136-145)
[2018-07-11] MEDS: LORazepam 1 MG Tablet 2 MG PO (16:19)
[2018-07-11] MEDS: Magnesium Sulfate 4gm/100mL 4 GM/100 ML IV.SOLN. IV (16:21)
[2018-07-11] MEDS: Ceftriaxone 1 GM/50 ML BAG IV (21:19)
--- NOTE | 2018-07-11 22:10 | NURSING ---
provided pt one beer per request.
[2018-07-12] VITALS (20 sets, daily range): BP systolic 139–183; BP diastolic 85–96; PULSE 83–145; RESP 12–26; TEMP 36.1–36.8; O2SAT 94–97
--- NOTE | 2018-07-12 04:28 | NURSING ---
provided 12oz beer per pt request
[2018-07-12] MEDS: 0.9% Normal Saline 1,000 ML 125 ML IV ×2 (06:19→13:46)
[2018-07-12] MEDS: Ipratropium/Albuterol Sulfate 3 ML AMPUL.NEB INHALATION ×5 (06:35→23:52)
[2018-07-12 07:21] LABS: Absolute Lymphocyte Count 0.62 X10^3/ul (0.83-4.51); Absolute Neutrophil Count 9.1 X10^3/uL (2.0-7.7); Basophil# 0.01 X10^3/uL; Basophil% 0.1 % (0-1); Hematocrit 43.8 % (40-54); Hemoglobin 14.2 g/dl (13.0-16.5); Lymphocyte # 0.62 X10^3/ul (4.0); Lymphocyte % 5.8 % (19-41); Mean Corp Hgb Conc 32.4 g/gl (32-36); Mean Corpuscular Hgb 31.5 pg (27.0-32.0); Mean Corpuscular Volume 97.1 fL (80-94); Mean Platelet Vol. 11.2 fl (6.2-12.0); Monocyte# 0.92 X10^3/uL; Monocyte% 8.6 % (0-10); Neutrophil # 9.08 X10^3/uL (2.7-7.7); Neutrophil % 85.3 % (47-70); Platelet Count 56 K/mm3 (150-450); RBC Distribution Width CV 13.7 % (11.6-14.6); Red Blood Count 4.51 M/mm3 (4.6-6.2); White Blood Count 10.7 K/mm3 (4.4-11.0)
[2018-07-12 07:25] LABS: POSITIVE COUNT NO; POSITIVE DIFFERENTIAL NO; POSITIVE MORPHOLOGY NO
[2018-07-12] MEDS: Thiamine Hydrochloride 100 MG Tablet PO ×2 (07:37→17:15)
[2018-07-12] MEDS: Multivitamins,Ther W-Minerals Tablet 1 TABLET PO (07:37)
[2018-07-12] MEDS: oxyCODONE 5 MG Tablet PO ×3 (07:37→22:50)
[2018-07-12] MEDS: Aspirin 81 MG TAB.CHEW PO (07:38)
[2018-07-12] MEDS: Folic Acid 1 MG Tablet PO (07:38)
--- NOTE | 2018-07-12 07:39 | NURSING ---
Patient given beer at this time - full bud light can
[2018-07-12 07:55] LABS: Anion Gap 7 (5-15); BUN 6 mg/dL (7-18); BUN/Creat Ratio 11.1 RATIO (10-20); Calcium,Total 7.9 mg/dL (8.5-10.1); Chloride 100 mmol/L (98-107); Creatinine, Serum 0.54 mg/dL (0.70-1.30); EST Glomerular Filtration Rate 169 mL/min (>60); Est Glom Filt Rate - Afr Amer 204 mL/min (>60); Estimated Creatinine Clearance 163.35 ml/min; Glucose 114 mg/dL (74-106); Potassium 3.9 mmol/L (3.5-5.1); Sodium Level 136 mmol/L (136-145)
[2018-07-12] MEDS: Docusate Sodium 100 MG Capsule 200 MG PO (10:57)
[2018-07-12] MEDS: Clopidogrel Bisulfate 75 MG Tablet PO (10:57)
[2018-07-12] MEDS: amLODIPine 10 MG Tablet PO (10:57)
[2018-07-12] MEDS: Paroxetine 20 MG Tablet PO (10:57)
[2018-07-12] MEDS: levETIRAcetam 1,000 MG Tablet 1000 MG PO ×2 (10:57→22:32)
[2018-07-12] MEDS: Lisinopril 20 MG Tablet PO (10:57)
[2018-07-12] MEDS: Pantoprazole Sodium 40 MG Tablet PO (10:57)
[2018-07-12] MEDS: guaiFENesin 1,200 MG Tablet 1200 MG PO ×2 (10:58→22:32)
--- NOTE | 2018-07-12 11:12 | PCM.PN.HOSP ---
Patient Problems: Active and Suspected Problems Multilobar lung infiltrate (Acute) Acute respiratory failure with hypoxia (Acute) Mediastinal lymphadenopathy (Acute) Bronchospasm (Acute) Sepsis (Acute) Subjective: Patient seen and examined. He still complains of feeling short of breath and states he is having difficulty expectorating sputum. He denies any fever or chills or palpitations, dizziness, diarrhea vomiting. He was noted to be very tremulous. However denies feeling like is going into withdrawal as he is getting beer therapy for alcohol. Vitals/I&O's: Vital Signs Temp Pulse Resp BP Pulse Ox 98.2 F 95 18 157/94 H 94 07/12/18 10:54 07/12/18 10:54 07/12/18 10:54 07/12/18 10:54 07/12/18 10:54 Oxygen Flow Rate (L/min) 5 Oxygen Delivery Method Nasal Cannula Weight: 195 lb 15.855 oz Body Mass Index (BMI) 28.0 Finger Stick Blood Glucose 103 Intake and Output for Last 24 Hours 07/10/18 07/11/18 07/12/18 23:59 23:59 23:59 Intake Total 566 / 566 2606 / 2606 2673 / 2673 Output Total 500 / 500 1525 / 1525 750 / 750 Balance 66 / 66 1081 / 1081 1923 / 1923 General: Alert, Oriented x3, Cooperative, No apparent distress HEENT: Atraumatic, PERRLA, EOMI, Normocephalic Oral: Dry Mucosa Neck: Supple, No JVD, Negative Carotid Bruits Lungs: - - has coarse crackles in mid and lower lung coto, with wheezing. on 5L of oxygen Cardiovascular: Regular rate, Regular Rhythm, Normal S1, Normal S2, No murmurs Abdomen: Bowel Sounds Present, Soft, Non Tender, Non-Distended, No Hepato-splenomegaly Extremities: No clubbing, No cyanosis, No edema, Capillary Refill Less than 3 Seconds Skin: No rashes, No breakdown Musculoskeletal: No Tenderness to Palpation of Joints or Extremities Lymphatic: No Cervical, Supraclavicular, or Inguinal Adenopathy Neurological: Cranial nerves II-XII grossly intact, Neuro grossly intact, Motor Exam 5/5 strength throughout Psych/Mental Status: Normal Affect, Appropriate, Alert and oriented to time, place, person, mood and affect Microbiology Past 72 Hours 07/10/18 20:40 Mucosa - Nasopharyngeal Respiratory Panel (PCR) - Final 07/10/18 22:20 Urine, Clean Catch Streptococcus pneumoniae Antigen (M - Final 07/10/18 22:20 Urine, Clean Catch Legionella Antigen - Final Laboratory Results 07/11/18 14:06: WBC 12.1 H, RBC 4.69, Hgb 15.0, Hct 44.8, MCV 95.5 H, MCH 32.0, MCHC 33.5, RDW 13.5, RDW Differential 46.7 H, Plt Count 45 L*, MPV 10.6, Immature Gran % (Auto) 0.200, Neut % (Auto) 92.5 H, Lymph % (Auto) 2.5 L, [place] % (Auto) 4.7, Eos % (Auto) 0.0, Baso % (Auto) 0.1, Absolute Neuts (auto) 11.2 H, Absolute Lymphs (auto) 0.30 L, Total Counted Not Reportable, Diff Path Review August, Platelet Estimate MKD 07/11/18 14:06: Sodium 132 L, Potassium 3.2 L, Chloride 97 L, Carbon Dioxide 30.0, Anion Gap 5, BUN 5 L, Creatinine 0.64 L, Estim Creat Clear Calc 137.83, Est GFR (MDRD) Af Amer 167, Est GFR (MDRD) Non-Af 138, BUN/Creatinine Ratio 7.8 L, Glucose 204 H, Calcium 7.9 L, Magnesium 1.7 07/12/18 06:50: WBC 10.7, RBC 4.51 L, Hgb 14.2, Hct 43.8, MCV 97.1 H, MCH 31.5, MCHC 32.4, RDW 13.7, RDW Differential 49.0 H, Plt Count 56 L, MPV 11.2, Immature Gran % (Auto) 0.200, Neut % (Auto) 85.3 H, Lymph % (Auto) 5.8 L, [place] % (Auto) 8.6, Eos % (Auto) 0.0, Baso % (Auto) 0.1, Absolute Neuts (auto) 9.1 H, Absolute Lymphs (auto) 0.62 L, Total Counted Not Reportable 07/12/18 06:50: Sodium 136, Potassium 3.9, Chloride 100, Carbon Dioxide 29.0, Anion Gap 7, BUN 6 L, Creatinine 0.54 L, Estim Creat Clear Calc 163.35, Est GFR (MDRD) Af Amer 204, Est GFR (MDRD) Non-Af 169, BUN/Creatinine Ratio 11.1, Glucose 114 H, Calcium 7.9 L Current Medications Acetaminophen (Tylenol) 650 mg PO Q4H PRN PRN PRN Reason: Fever, pain Al Hydroxide/Mg Hydroxide (Mylanta Ii) 30 ml PO Q6H PRN PRN PRN Reason: Gastric Burning Albuterol/Ipratropium (Duoneb) 3 ml INHALATION Q4H.RT [facility] Last Admin: 07/12/18 06:35 Dose: 3 ml Amlodipine Besylate (Norvasc) 10 mg PO DAILY [facility] Last Admin: 07/12/18 10:57 Dose: 10 mg Aspirin (Aspirin, Baby) 81 mg PO DAILY@0800 [facility] Last Admin: 07/12/18 07:38 Dose: 81 mg Clopidogrel Bisulfate (Plavix) 75 mg PO DAILY [facility] Last Admin: 07/12/18 10:57 Dose: 75 mg Docusate Sodium (Colace) 200 mg PO BID PRN PRN PRN Reason: Constipation Last Admin: 07/12/18 10:57 Dose: 200 mg Folic Acid (Folic Acid) 1 mg PO DAILY@0800 [facility] Stop: 07/13/18 08:01 Last Admin: 07/12/18 07:38 Dose: 1 mg Guaifenesin (Mucinex) 1,200 mg PO BID [facility] Last Admin: 07/12/18 10:58 Dose: 1,200 mg Hydralazine HCl (Apresoline Iv) 10 mg IV Q4H PRN PRN PRN Reason: SBP > 160 Last Admin: 07/11/18 11:01 Dose: 10 mg Sodium Chloride () 1,000 mls @ 125 mls/hr IV .Q8H [facility] Last Admin: 07/12/18 06:19 Dose: 125 mls/hr Azithromycin 500 mg/ Dextrose 255 mls @ 250 mls/hr IV Q24H [facility] Stop: 07/12/18 23:02 Last Admin: 07/11/18 21:19 Dose: 250 mls/hr Ceftriaxone Sodium (Rocephin) 1 gm in 50 mls @ 100 mls/hr IV Q24H [facility] Last Admin: 07/11/18 21:19 Dose: 100 mls/hr Ipratropium [place] (Atrovent) 0.5 mg INHALATION Q2H.RT PRN PRN Reason: WHEEZING Levetiracetam (Keppra Tablet) 1,000 mg PO BID [facility] Last Admin: 07/12/18 10:57 Dose: 1,000 mg Lisinopril (Zestril) 20 mg PO DAILY [facility] Last Admin: 07/12/18 10:57 Dose: 20 mg Lorazepam (Ativan) 2 mg PO Q2H PRN PRN; Protocol PRN Reason: CIWA score > 8 but <15 Last Admin: 07/11/18 16:19 Dose: 2 mg Lorazepam (Ativan) 2 mg PO UD PRN; Protocol PRN Reason: CIWA score >/=15. Lorazepam (Ativan) 2 mg IV Q2H PRN PRN; Protocol PRN Reason: CIWA score > 8 but <15 Lorazepam (Ativan) 2 mg IV UD PRN; Protocol PRN Reason: CIWA score >/=15. Magnesium Hydroxide (Milk Of Magnesia) 30 ml PO DAILY PRN PRN Reason: Constipation Methylprednisolone (Solu-Medrol) 40 mg IV Q8 [facility] Last Admin: 07/12/18 06:20 Dose: 40 mg Multivitamins/Minerals ([facility]) [facility] Last Admin: 07/12/18 07:37 Dose: 1 tablet Nicotine (Nicoderm Cq (Pbkc)) 21 mg TRANSDERM. DAILY [facility] Last Admin: 07/12/18 10:58 Dose: 21 mg Nutritional Formula (Lactose Free) (Ensure Enlive) 120 ml PO 4X/DAY [facility] Last Admin: 07/12/18 10:41 Dose: Not Given Ondansetron HCl (Zofran) 4 mg IV Q8H PRN PRN PRN Reason: Nausea Oxycodone HCl (Oxyir) 5 mg PO Q4H PRN PRN PRN Reason: Moderate Pain (pain scale 4-5) Last Admin: 07/12/18 07:37 Dose: 5 mg Pantoprazole Sodium (Protonix) 40 mg PO DAILY [facility] Last Admin: 07/12/18 10:57 Dose: 40 mg Paroxetine HCl (Paxil) 20 mg PO DAILY [facility] Last Admin: 07/12/18 10:57 Dose: 20 mg Sodium Chloride () 5 - 15 ml IV UD PRN PRN Reason: SALINE FLUSH Last Admin: 07/11/18 05:31 Dose: 10 ml Thiamine HCl (Vitamin B1) 100 mg PO BIDCM [facility] Stop: 07/13/18 17:01 Last Admin: 07/12/18 07:37 Dose: 100 mg Medical Necessity - Tobacco Use Smoking Status: Current every day smoker Tobacco Use: Cigarettes Assessment/Plan All Active Problems Multilobar lung infiltrate (Acute) Acute respiratory failure with hypoxia (Acute) Mediastinal lymphadenopathy (Acute) Bronchospasm (Acute) Sepsis (Acute) Liver mass (Acute) Hyponatremia (Acute) Hypokalemia (Acute) 1. Sepsis due to community acquired pneumonia SIRS criteria- / (tachypnea) white cell count is down to 10.7 still remains SOB with wheezing. on IV ceftriaxone and azithromycin; will broaden antibiotics in light of patient still not feeling better and de-escalate as per culture results. sputum culture pending; respiratory panel was negative. on breathing treatments on IV solumedrol Titrate oxygen to maintain saturation more than 92%. 2. Acute hypoxemic respiratory failure due to community-acquired pneumonia Was requiring up to 15 L of oxygen on admission and was transitioned to BiPAP. Now on 5 L of oxygen still feels very SOB> On breathing treatments with duo nebs. titrate oxygen to maintain sats>90% on IV solumedrol 3. Hypokalemia: resolved. K is 3.9 4. Seizure disorder: on Keppra 5. Thrombocytopenia: platelets are 56 today. chronic. Likely due to alcohol abuse. WIll monitor 6. Hyponatremia: Na is 136 today. 7. Alcohol abuse: drinks 9 12 oz cans daily. requested beer regimen as per dietary to prevent alcohol withdrawal. CIWA score today- 4 8. PAD s/p LLE stent: on plavix and statin therapy 9. Anxiety and depression: on paroxetine and trazodone. DVT prophylaxis: SCDs; lovenox dc'd o/a of low platelets Code Visit Inpatient E&M: 25073 [facility] Hosp L3
--- NOTE | 2018-07-12 11:20 | PN_ITS ---
Patient Problems: Active and Suspected Problems Multilobar lung infiltrate (Acute) Acute respiratory failure with hypoxia (Acute) Mediastinal lymphadenopathy (Acute) Bronchospasm (Acute) Sepsis (Acute) Subjective: Patient seen and examined. He still complains of feeling short of breath and states he is having difficulty expectorating sputum. He denies any fever or chills or palpitations, dizziness, diarrhea vomiting. He was noted to be very tremulous. However denies feeling like is going into withdrawal as he is getting beer therapy for alcohol. Vitals/I&O's: Vital Signs Temp Pulse Resp BP Pulse Ox 98.2 F 95 18 157/94 H 94 07/12/18 10:54 07/12/18 10:54 07/12/18 10:54 07/12/18 10:54 07/12/18 10:54 Oxygen Flow Rate (L/min) 5 Oxygen Delivery Method Nasal Cannula Weight: 195 lb 15.855 oz Body Mass Index (BMI) 28.0 Finger Stick Blood Glucose 103 Intake and Output for Last 24 Hours 07/10/18 07/11/18 07/12/18 23:59 23:59 23:59 Intake Total 566 / 566 2606 / 2606 2673 / 2673 Output Total 500 / 500 1525 / 1525 750 / 750 Balance 66 / 66 1081 / 1081 1923 / 1923 General: Alert, Oriented x3, Cooperative, No apparent distress HEENT: Atraumatic, PERRLA, EOMI, Normocephalic Oral: Dry Mucosa Neck: Supple, No JVD, Negative Carotid Bruits Lungs: - - has coarse crackles in mid and lower lung coto, with wheezing. on 5L of oxygen Cardiovascular: Regular rate, Regular Rhythm, Normal S1, Normal S2, No murmurs Abdomen: Bowel Sounds Present, Soft, Non Tender, Non-Distended, No Hepato- splenomegaly Extremities: No clubbing, No cyanosis, No edema, Capillary Refill Less than 3 Seconds Skin: No rashes, No breakdown Musculoskeletal: No Tenderness to Palpation of Joints or Extremities Lymphatic: No Cervical, Supraclavicular, or Inguinal Adenopathy Neurological: Cranial nerves II-XII grossly intact, Neuro grossly intact, Motor Exam 5/5 strength throughout Psych/Mental Status: Normal Affect, Appropriate, Alert and oriented to time, place, person, mood and affect Microbiology Past 72 Hours 07/10/18 20:40 Mucosa - Nasopharyngeal Respiratory Panel (PCR) - Final 07/10/18 22:20 Urine, Clean Catch Streptococcus pneumoniae Antigen (M - Final 07/10/18 22:20 Urine, Clean Catch Legionella Antigen - Final Laboratory Results 07/11/18 14:06: WBC 12.1 H, RBC 4.69, Hgb 15.0, Hct 44.8, MCV 95.5 H, MCH 32.0, MCHC 33.5, RDW 13.5, RDW Differential 46.7 H, Plt Count 45 L*, MPV 10.6, Immature Gran % (Auto) 0.200, Neut % (Auto) 92.5 H, Lymph % (Auto) 2.5 L, Turner % (Auto) 4.7, Eos % (Auto) 0.0, Baso % (Auto) 0.1, Absolute Neuts (auto) 11.2 H, Absolute Lymphs (auto) 0.30 L, Total Counted Not Reportable, Diff Path Review August, Platelet Estimate MKD 07/11/18 14:06: Sodium 132 L, Potassium 3.2 L, Chloride 97 L, Carbon Dioxide 30.0, Anion Gap 5, BUN 5 L, Creatinine 0.64 L, Estim Creat Clear Calc 137.83, Est GFR (MDRD) Af Amer 167, Est GFR (MDRD) Non-Af 138, BUN/Creatinine Ratio 7.8 L, Glucose 204 H, Calcium 7.9 L, Magnesium 1.7 07/12/18 06:50: WBC 10.7, RBC 4.51 L, Hgb 14.2, Hct 43.8, MCV 97.1 H, MCH 31.5, MCHC 32.4, RDW 13.7, RDW Differential 49.0 H, Plt Count 56 L, MPV 11.2, Immature Gran % (Auto) 0.200, Neut % (Auto) 85.3 H, Lymph % (Auto) 5.8 L, Turner % (Auto) 8.6, Eos % (Auto) 0.0, Baso % (Auto) 0.1, Absolute Neuts (auto) 9.1 H, Absolute Lymphs (auto) 0.62 L, Total Counted Not Reportable 07/12/18 06:50: Sodium 136, Potassium 3.9, Chloride 100, Carbon Dioxide 29.0, Anion Gap 7, BUN 6 L, Creatinine 0.54 L, Estim Creat Clear Calc 163.35, Est GFR (MDRD) Af Amer 204, Est GFR (MDRD) Non-Af 169, BUN/Creatinine Ratio 11.1, Glucose 114 H, Calcium 7.9 L Current Medications Acetaminophen (Tylenol) 650 mg PO Q4H PRN PRN PRN Reason: Fever, pain Al Hydroxide/Mg Hydroxide (Mylanta Ii) 30 ml PO Q6H PRN PRN PRN Reason: Gastric Burning Albuterol/Ipratropium (Duoneb) 3 ml INHALATION Q4H.RT [facility] Last Admin: 07/12/18 06:35 Dose: 3 ml Amlodipine Besylate (Norvasc) 10 mg PO DAILY [facility] Last Admin: 07/12/18 10:57 Dose: 10 mg Aspirin (Aspirin, Baby) 81 mg PO DAILY@0800 [facility] Last Admin: 07/12/18 07:38 Dose: 81 mg Clopidogrel Bisulfate (Plavix) 75 mg PO DAILY [facility] Last Admin: 07/12/18 10:57 Dose: 75 mg Docusate Sodium (Colace) 200 mg PO BID PRN PRN PRN Reason: Constipation Last Admin: 07/12/18 10:57 Dose: 200 mg Folic Acid (Folic Acid) 1 mg PO DAILY@0800 [facility] Stop: 07/13/18 08:01 Last Admin: 07/12/18 07:38 Dose: 1 mg Guaifenesin (Mucinex) 1,200 mg PO BID [facility] Last Admin: 07/12/18 10:58 Dose: 1,200 mg Hydralazine HCl (Apresoline Iv) 10 mg IV Q4H PRN PRN PRN Reason: SBP > 160 Last Admin: 07/11/18 11:01 Dose: 10 mg Sodium Chloride () 1,000 mls @ 125 mls/hr IV .Q8H [facility] Last Admin: 07/12/18 06:19 Dose: 125 mls/hr Azithromycin 500 mg/ Dextrose 255 mls @ 250 mls/hr IV Q24H [facility] Stop: 07/12/18 23:02 Last Admin: 07/11/18 21:19 Dose: 250 mls/hr Ceftriaxone Sodium (Rocephin) 1 gm in 50 mls @ 100 mls/hr IV Q24H [facility] Last Admin: 07/11/18 21:19 Dose: 100 mls/hr Ipratropium [place] (Atrovent) 0.5 mg INHALATION Q2H.RT PRN PRN Reason: WHEEZING Levetiracetam (Keppra Tablet) 1,000 mg PO BID [facility] Last Admin: 07/12/18 10:57 Dose: 1,000 mg Lisinopril (Zestril) 20 mg PO DAILY [facility] Last Admin: 07/12/18 10:57 Dose: 20 mg Lorazepam (Ativan) 2 mg PO Q2H PRN PRN; Protocol PRN Reason: CIWA score > 8 but <15 Last Admin: 07/11/18 16:19 Dose: 2 mg Lorazepam (Ativan) 2 mg PO UD PRN; Protocol PRN Reason: CIWA score >/=15. Lorazepam (Ativan) 2 mg IV Q2H PRN PRN; Protocol PRN Reason: CIWA score > 8 but <15 Lorazepam (Ativan) 2 mg IV UD PRN; Protocol PRN Reason: CIWA score >/=15. Magnesium Hydroxide (Milk Of Magnesia) 30 ml PO DAILY PRN PRN Reason: Constipation Methylprednisolone (Solu-Medrol) 40 mg IV Q8 [facility] Last Admin: 07/12/18 06:20 Dose: 40 mg Multivitamins/Minerals ([facility]) [facility] Last Admin: 07/12/18 07:37 Dose: 1 tablet Nicotine (Nicoderm Cq (Pbkc)) 21 mg TRANSDERM. DAILY [facility] Last Admin: 07/12/18 10:58 Dose: 21 mg Nutritional Formula (Lactose Free) (Ensure Enlive) 120 ml PO 4X/DAY [facility] Last Admin: 07/12/18 10:41 Dose: Not Given Ondansetron HCl (Zofran) 4 mg IV Q8H PRN PRN PRN Reason: Nausea Oxycodone HCl (Oxyir) 5 mg PO Q4H PRN PRN PRN Reason: Moderate Pain (pain scale 4-5) Last Admin: 07/12/18 07:37 Dose: 5 mg Pantoprazole Sodium (Protonix) 40 mg PO DAILY [facility] Last Admin: 07/12/18 10:57 Dose: 40 mg Paroxetine HCl (Paxil) 20 mg PO DAILY [facility] Last Admin: 07/12/18 10:57 Dose: 20 mg Sodium Chloride () 5 - 15 ml IV UD PRN PRN Reason: SALINE FLUSH Last Admin: 07/11/18 05:31 Dose: 10 ml Thiamine HCl (Vitamin B1) 100 mg PO BIDCM [facility] Stop: 07/13/18 17:01 Last Admin: 07/12/18 07:37 Dose: 100 mg Medical Necessity - Tobacco Use Smoking Status: Current every day smoker Tobacco Use: Cigarettes Assessment/Plan All Active Problems Multilobar lung infiltrate (Acute) Acute respiratory failure with hypoxia (Acute) Mediastinal lymphadenopathy (Acute) Bronchospasm (Acute) Sepsis (Acute) Liver mass (Acute) Hyponatremia (Acute) Hypokalemia (Acute) 1. Sepsis due to community acquired pneumonia * SIRS criteria- 05/01 (tachypnea) * white cell count is down to 10.7 * still remains SOB with wheezing. * on IV ceftriaxone and azithromycin; will broaden antibiotics in light of patient still not feeling better and de-escalate as per culture results. * sputum culture pending; respiratory panel was negative. * on breathing treatments * on IV solumedrol * Titrate oxygen to maintain saturation more than 92%. * 2. Acute hypoxemic respiratory failure due to community-acquired pneumonia * Was requiring up to 15 L of oxygen on admission and was transitioned to BiPAP. Now on 5 L of oxygen * still feels very SOB> * On breathing treatments with duo nebs. * titrate oxygen to maintain sats>90% * on IV solumedrol * 3. Hypokalemia: resolved. K is 3.9 4. Seizure disorder: on Keppra 5. Thrombocytopenia: platelets are 56 today. chronic. Likely due to alcohol abuse. WIll monitor 6. Hyponatremia: * Na is 136 today. * 7. Alcohol abuse: * drinks 9 12 oz cans daily. * requested beer regimen as per dietary to prevent alcohol withdrawal. * CIWA score today- 4 * 8. PAD s/p LLE stent: on plavix and statin therapy 9. Anxiety and depression: on paroxetine and trazodone. DVT prophylaxis: SCDs; lovenox dc'd o/a of low platelets Code Visit Inpatient E&M: 93764 Subs Hosp L3
--- NOTE | 2018-07-12 11:28 | CPS ---
Addendum entered and electronically signed by Tiffany Brown 07/12/18 11:35: Again encouraged patient to wear Bipap and patient agreed. Original Note: Patient sitting up in bed tripoding. When asked if having difficulty breathing pt stated yes. Patient refusing bipap at this time.
--- NOTE | 2018-07-12 11:33 | NURSING ---
Patient given beer at this time - full bud light can
--- NOTE | 2018-07-12 16:01 | NURSING ---
Patient given beer at this time - full bud light can
--- NOTE | 2018-07-12 20:39 | NURSING ---
CIWA score 6 at this time. Beer given.
[2018-07-12] MEDS: 0.9% NaCl Peripheral Flush Adult/Peds IV ×2 (22:34→22:40)
--- NOTE | 2018-07-12 23:00 | NURSING ---
One beer given around 2245. This is number 6 for the day.
[2018-07-13] VITALS (17 sets, daily range): BP systolic 143–170; BP diastolic 81–104; PULSE 79–122; RESP 18–26; TEMP 36.5–36.7; O2SAT 93–95
--- NOTE | 2018-07-13 00:57 | NURSING ---
One 12oz beer given at this time per pt request.
[2018-07-13] MEDS: 0.9% Normal Saline 1,000 ML 125 ML IV ×3 (02:54→20:36)
[2018-07-13] MEDS: LORazepam 1 MG Tablet 2 MG PO ×4 (03:15→22:10)
[2018-07-13] MEDS: Ipratropium/Albuterol Sulfate 3 ML AMPUL.NEB INHALATION ×6 (03:41→23:27)
[2018-07-13 06:01] LABS: Anion Gap 8 (5-15); BUN 8 mg/dL (7-18); Calcium,Total 8.9 mg/dL (8.5-10.1); Chloride 97 mmol/L (98-107); Creatinine, Serum 0.62 mg/dL (0.70-1.30); EST Glomerular Filtration Rate 145 mL/min (>60); Est Glom Filt Rate - Afr Amer 175 mL/min (>60); Estimated Creatinine Clearance 142.27 ml/min; Glucose 163 mg/dL (74-106); Sodium Level 134 mmol/L (136-145)
[2018-07-13] MEDS: 0.9% NaCl Peripheral Flush Adult/Peds IV ×5 (06:10→21:55)
--- NOTE | 2018-07-13 06:23 | NURSING ---
One can of [place] given at this time.
--- NOTE | 2018-07-13 07:01 | EKG12_ITS ---
Test Reason : CP Blood Pressure : / mmHG Vent. Rate : 085 BPM Atrial Rate : 085 BPM P-R Int : 130 ms QRS Dur : 088 ms QT Int : 402 ms P-R-T Axes : 033 033 045 degrees QTc Int : 478 ms Normal sinus rhythm with sinus arrhythmia Septal infarct (cited on or before 10-JUL-2018) Abnormal ECG When compared with ECG of 10-JUL-2018 18:09, No significant change was found Confirmed by JOSE DANIEL FERRARI, FERNANDEZ ([id number]), technical editor LETHA MITCHELL ([id number]) on 07/15/2018 8:54:27 AM Referred By: HEAVEN Confirmed By:FERNANDEZ SKY MD
[2018-07-13 07:11] LABS: Absolute Lymphocyte Count 0.56 X10^3/ul (0.83-4.51); Absolute Neutrophil Count 6.9 X10^3/uL (2.0-7.7); Basophil# 0.01 X10^3/uL; Basophil% 0.1 % (0-1); Hematocrit 42.9 % (40-54); Hemoglobin 14.1 g/dl (13.0-16.5); Lymphocyte # 0.56 X10^3/ul (4.0); Lymphocyte % 6.8 % (19-41); Mean Corp Hgb Conc 32.9 g/gl (32-36); Mean Corpuscular Hgb 31.8 pg (27.0-32.0); Mean Corpuscular Volume 96.8 fL (80-94); Mean Platelet Vol. 11.2 fl (6.2-12.0); Monocyte# 0.73 X10^3/uL; Monocyte% 8.8 % (0-10); Neutrophil # 6.91 X10^3/uL (2.7-7.7); Neutrophil % 83.8 % (47-70); Platelet Count 75 K/mm3 (150-450); RBC Distribution Width CV 13.2 % (11.6-14.6); Red Blood Count 4.43 M/mm3 (4.6-6.2); White Blood Count 8.3 K/mm3 (4.4-11.0)
[2018-07-13 07:12] LABS: Differential Indicated SCAN CRITERIA MET; POSITIVE COUNT NO; POSITIVE DIFFERENTIAL NO; POSITIVE MORPHOLOGY NO
[2018-07-13] MEDS: Multivitamins,Ther W-Minerals Tablet 1 TABLET PO (08:22)
[2018-07-13] MEDS: Folic Acid 1 MG Tablet PO (08:22)
[2018-07-13] MEDS: Aspirin 81 MG TAB.CHEW PO (08:22)
[2018-07-13] MEDS: Thiamine Hydrochloride 100 MG Tablet PO ×2 (08:22→16:15)
[2018-07-13] MEDS: levETIRAcetam 1,000 MG Tablet 1000 MG PO ×2 (08:23→21:54)
[2018-07-13] MEDS: Lisinopril 20 MG Tablet PO (08:23)
[2018-07-13] MEDS: Paroxetine 20 MG Tablet PO (08:23)
[2018-07-13] MEDS: Pantoprazole Sodium 40 MG Tablet PO (08:23)
[2018-07-13] MEDS: Clopidogrel Bisulfate 75 MG Tablet PO (08:23)
[2018-07-13] MEDS: guaiFENesin 1,200 MG Tablet 1200 MG PO ×2 (08:24→21:54)
[2018-07-13] MEDS: amLODIPine 10 MG Tablet PO (08:32)
[2018-07-13] MEDS: oxyCODONE 5 MG Tablet PO (11:42)
[2018-07-13 11:57] LABS: Pathologist Review Reviewed
--- NOTE | 2018-07-13 11:58 | PCM.PN.HOSP ---
Patient Problems: Active and Suspected Problems Multilobar lung infiltrate (Acute) Acute respiratory failure with hypoxia (Acute) Mediastinal lymphadenopathy (Acute) Bronchospasm (Acute) Sepsis (Acute) Subjective: Patient seen and examined this morning. He still remains short of breath. He is now on only 2 L of oxygen but still states he feels terrible. He still coughing and expectorating yellowish colored sputum. He has associated pleuritic chest pain but denies any fever or chills, diarrhea vomiting. Review of systems otherwise negative. Labs and vitals reviewed. Vitals/I&O's: Vital Signs Temp Pulse Resp BP Pulse Ox 97.7 F L 114 H 18 170/98 H 94 07/13/18 08:17 07/13/18 11:11 07/13/18 10:58 07/13/18 08:17 07/13/18 08:17 Oxygen Flow Rate (L/min) 2 Oxygen Delivery Method Nasal Cannula Weight: 195 lb 15.855 oz Body Mass Index (BMI) 28.0 Finger Stick Blood Glucose 103 Intake and Output for Last 24 Hours 07/11/18 07/12/18 07/13/18 23:59 23:59 23:59 Intake Total 2606 / 2606 6800 / 6800 2547.7 / 2547.7 Output Total 1525 / 1525 3175 / 3175 3935 / 3935 Balance 1081 / 1081 3625 / 3625 -1387.3 / -1387.3 General: Alert, Oriented x3, Cooperative, No apparent distress HEENT: Atraumatic, PERRLA, EOMI, Normocephalic Oral: Dry Mucosa Neck: Supple, No JVD, Negative Carotid Bruits Lungs: - - has few coarse crackles in mid and lower lung coto, with wheezing. on 2L of oxygen Cardiovascular: Regular rate, Regular Rhythm, Normal S1, Normal S2, No murmurs Abdomen: Bowel Sounds Present, Soft, Non Tender, Non-Distended, No Hepato-splenomegaly Extremities: No clubbing, No cyanosis, No edema, Capillary Refill Less than 3 Seconds Skin: No rashes, No breakdown Musculoskeletal: No Tenderness to Palpation of Joints or Extremities Lymphatic: No Cervical, Supraclavicular, or Inguinal Adenopathy Neurological: Cranial nerves II-XII grossly intact, Neuro grossly intact, Motor Exam 5/5 strength throughout Psych/Mental Status: Normal Affect, Appropriate, Alert and oriented to time, place, person, mood and affect Microbiology Past 72 Hours 07/11/18 Unknown Sputum, Expectorated/Coughed Gram Stain - Final 07/11/18 Unknown Sputum, Expectorated/Coughed Respiratory Culture - Preliminary Appears to be normal respiratory sol. Further studies to follow. 07/10/18 20:40 Mucosa - Nasopharyngeal Respiratory Panel (PCR) - Final 07/10/18 22:20 Urine, Clean Catch Streptococcus pneumoniae Antigen (M - Final 07/10/18 22:20 Urine, Clean Catch Legionella Antigen - Final Laboratory Results 07/11/18 14:06: Diff Path Review Reviewed 07/13/18 05:25: WBC 8.3, RBC 4.43 L, Hgb 14.1, Hct 42.9, MCV 96.8 H, MCH 31.8, MCHC 32.9, RDW 13.2, RDW Differential 46.0 H, Plt Count 75 L, MPV 11.2, Immature Gran % (Auto) 0.500, Neut % (Auto) 83.8 H, Lymph % (Auto) 6.8 L, Chambers % (Auto) 8.8, Eos % (Auto) 0.0, Baso % (Auto) 0.1, Absolute Neuts (auto) 6.9, Absolute Lymphs (auto) 0.56 L, Total Counted Not Reportable 07/13/18 05:25: Sodium 134 L, Potassium 4.0, Chloride 97 L, Carbon Dioxide 29.0, Anion Gap 8, BUN 8, Creatinine 0.62 L, Estim Creat Clear Calc 142.27, Est GFR (MDRD) Af Amer 175, Est GFR (MDRD) Non-Af 145, BUN/Creatinine Ratio 13.0, Glucose 163 H, Calcium 8.9 Current Medications Acetaminophen (Tylenol) 650 mg PO Q4H PRN PRN PRN Reason: Fever, pain Al Hydroxide/Mg Hydroxide (Mylanta Ii) 30 ml PO Q6H PRN PRN PRN Reason: Gastric Burning Albuterol/Ipratropium (Duoneb) 3 ml INHALATION Q4H.RT [facility] Last Admin: 07/13/18 10:58 Dose: 3 ml Amlodipine Besylate (Norvasc) 10 mg PO DAILY [facility] Last Admin: 03/18/19 08:32 Dose: 10 mg Aspirin (Aspirin, Baby) 81 mg PO DAILY@0800 [facility] Last Admin: 07/13/18 08:22 Dose: 81 mg Clopidogrel Bisulfate (Plavix) 75 mg PO DAILY [facility] Last Admin: 07/13/18 08:23 Dose: 75 mg Docusate Sodium (Colace) 200 mg PO BID PRN PRN PRN Reason: Constipation Last Admin: 07/12/18 10:57 Dose: 200 mg Guaifenesin (Mucinex) 1,200 mg PO BID [facility] Last Admin: 07/13/18 08:24 Dose: 1,200 mg Hydralazine HCl (Apresoline Iv) 10 mg IV Q4H PRN PRN PRN Reason: SBP > 160 Last Admin: 07/11/18 11:01 Dose: 10 mg Sodium Chloride () 1,000 mls @ 125 mls/hr IV .Q8H [facility] Last Admin: 07/13/18 11:44 Dose: 125 mls/hr Piperacillin Sod/Tazobactam (Sod 3.375 gm/ Sodium Chloride) 50 mls @ 12.5 mls/hr IV Q8 [facility] Last Admin: 07/13/18 06:09 Dose: 12.5 mls/hr Ipratropium [place] (Atrovent) 0.5 mg INHALATION Q2H.RT PRN PRN Reason: WHEEZING Levetiracetam (Keppra Tablet) 1,000 mg PO BID [facility] Last Admin: 07/13/18 08:23 Dose: 1,000 mg Lisinopril (Zestril) 20 mg PO DAILY [facility] Last Admin: 07/13/18 08:23 Dose: 20 mg Lorazepam (Ativan) 2 mg PO Q2H PRN PRN; Protocol PRN Reason: CIWA score > 8 but <15 Last Admin: 07/13/18 08:22 Dose: 2 mg Lorazepam (Ativan) 2 mg PO UD PRN; Protocol PRN Reason: CIWA score >/=15. Last Admin: 07/13/18 03:15 Dose: 2 mg Lorazepam (Ativan) 2 mg IV Q2H PRN PRN; Protocol PRN Reason: CIWA score > 8 but <15 Lorazepam (Ativan) 2 mg IV UD PRN; Protocol PRN Reason: CIWA score >/=15. Magnesium Hydroxide (Milk Of Magnesia) 30 ml PO DAILY PRN PRN Reason: Constipation Methylprednisolone (Solu-Medrol) 40 mg IV Q8 [facility] Last Admin: 07/13/18 06:10 Dose: 40 mg Multivitamins/Minerals ([facility] Min[facility]) [facility] Admin: 07/13/18 08:22 Dose: 1 tablet Nicotine (Nicoderm Cq (Pbkc)) 21 mg TRANSDERM. DAILY [facility] Last Admin: 07/13/18 08:33 Dose: 21 mg Nutritional Formula (Lactose Free) (Ensure Enlive) 120 ml PO 4X/DAY [facility] Last Admin: 07/13/18 08:23 Dose: Not Given Ondansetron HCl (Zofran) 4 mg IV Q8H PRN PRN PRN Reason: Nausea Oxycodone HCl (Oxyir) 5 mg PO Q4H PRN PRN PRN Reason: Moderate Pain (pain scale 4-5) Last Admin: 07/13/18 11:42 Dose: 5 mg Pantoprazole Sodium (Protonix) 40 mg PO DAILY [facility] Last Admin: 07/13/18 08:23 Dose: 40 mg Paroxetine HCl (Paxil) 20 mg PO DAILY [facility] Last Admin: 07/13/18 08:23 Dose: 20 mg Sodium Chloride () 5 - 15 ml IV UD PRN PRN Reason: SALINE FLUSH Last Admin: 07/13/18 06:17 Dose: 10 ml Thiamine HCl ([facility]itamin B[facility]) [facility]: 07/13/18 17:01 Last Admin: 07/13/18 08:22 Dose: 100 mg Medical Necessity - Tobacco Use Smoking Status: Current every day smoker Tobacco Use: Cigarettes Assessment/Plan All Active Problems Multilobar lung infiltrate (Acute) Acute respiratory failure with hypoxia (Acute) Mediastinal lymphadenopathy (Acute) Bronchospasm (Acute) Sepsis (Acute) Liver mass (Acute) Hyponatremia (Acute) Hypokalemia (Acute) 1. Sepsis due to community acquired pneumonia SIRS criteria- / (tachypnea) white cell count is down to 10.7 now on 2L of oxygen, however, he still remains SOB and is wheezing. sputum cultures were negative, blood cultures were negative and respiratory panel was also negative. Urine for strep and Legionella were also negative. Antibiotics broadened to IV Zosyn yesterday. On IV Solu-Medrol. Pulmo Consulted on account of patient's persistent of breath even though his oxygen requirements are decreasing. Ceftriaxone and azithromycin; will broaden antibiotics in light of patient still not feeling better and de-escalate as per culture results. Titrate oxygen to maintain saturation more than 90%. 2. Acute hypoxemic respiratory failure due to community-acquired pneumonia Was requiring up to 15 L of oxygen on admission and was transitioned to BiPAP. Now on 2 L of oxygen still feels very SOB and is wheezing pulmo consulted as under 1. On breathing treatments with duo nebs. titrate oxygen to maintain sats>90% on IV solumedrol pulmo consulted,a s under 1. patient does have an extensive smoking history and likely has underlying COPD which is contributing to respiratory failure 3. Hypokalemia: resolved. 4. Seizure disorder: on Keppra 5. Thrombocytopenia: platelets are 75 today. chronic. Likely due to alcohol abuse. WIll monitor 6. Hyponatremia: Na is 134 today. IWll monitor 7. Alcohol abuse: drinks 9 12 oz cans daily. on beer regimen; patient now requesting alcohol detox via [facility]. [facility] will accept patient. Will start alcohol detox with Librium. CIWA score today- 4 8. PAD s/p LLE stent: on plavix and statin therapy 9. Anxiety and depression: on paroxetine and trazodone. DVT prophylaxis: SCDs Code Visit Inpatient E&M: 37753 Subs Hosp L3
--- NOTE | 2018-07-13 12:02 | PN_ITS ---
Patient Problems: Active and Suspected Problems Multilobar lung infiltrate (Acute) Acute respiratory failure with hypoxia (Acute) Mediastinal lymphadenopathy (Acute) Bronchospasm (Acute) Sepsis (Acute) Subjective: Patient seen and examined this morning. He still remains short of breath. He is now on only 2 L of oxygen but still states he feels terrible. He still coughing and expectorating yellowish colored sputum. He has associated pleuritic chest pain but denies any fever or chills, diarrhea vomiting. Review of systems otherwise negative. Labs and vitals reviewed. Vitals/I&O's: Vital Signs Temp Pulse Resp BP Pulse Ox 97.7 F L 114 H 18 170/98 H 94 07/13/18 08:17 07/13/18 11:11 07/13/18 10:58 07/13/18 08:17 07/13/18 08:17 Oxygen Flow Rate (L/min) 2 Oxygen Delivery Method Nasal Cannula Weight: 195 lb 15.855 oz Body Mass Index (BMI) 28.0 Finger Stick Blood Glucose 103 Intake and Output for Last 24 Hours 07/11/18 07/12/18 07/13/18 23:59 23:59 23:59 Intake Total 2606 / 2606 6800 / 6800 2547.7 / 2547.7 Output Total 1525 / 1525 3175 / 3175 3935 / 3935 Balance 1081 / 1081 3625 / 3625 -1387.3 / -1387.3 General: Alert, Oriented x3, Cooperative, No apparent distress HEENT: Atraumatic, PERRLA, EOMI, Normocephalic Oral: Dry Mucosa Neck: Supple, No JVD, Negative Carotid Bruits Lungs: - - has few coarse crackles in mid and lower lung coto, with wheezing. on 2L of oxygen Cardiovascular: Regular rate, Regular Rhythm, Normal S1, Normal S2, No murmurs Abdomen: Bowel Sounds Present, Soft, Non Tender, Non-Distended, No Hepato- splenomegaly Extremities: No clubbing, No cyanosis, No edema, Capillary Refill Less than 3 Seconds Skin: No rashes, No breakdown Musculoskeletal: No Tenderness to Palpation of Joints or Extremities Lymphatic: No Cervical, Supraclavicular, or Inguinal Adenopathy Neurological: Cranial nerves II-XII grossly intact, Neuro grossly intact, Motor Exam 5/5 strength throughout Psych/Mental Status: Normal Affect, Appropriate, Alert and oriented to time, place, person, mood and affect Microbiology Past 72 Hours 07/11/18 Unknown Sputum, Expectorated/Coughed Gram Stain - Final 07/11/18 Unknown Sputum, Expectorated/Coughed Respiratory Culture - Preliminary Appears to be normal respiratory sol. Further studies to follow. 07/10/18 20:40 Mucosa - Nasopharyngeal Respiratory Panel (PCR) - Final 07/10/18 22:20 Urine, Clean Catch Streptococcus pneumoniae Antigen (M - Final 07/10/18 22:20 Urine, Clean Catch Legionella Antigen - Final Laboratory Results 07/11/18 14:06: Diff Path Review Reviewed 07/13/18 05:25: WBC 8.3, RBC 4.43 L, Hgb 14.1, Hct 42.9, MCV 96.8 H, MCH 31.8, MCHC 32.9, RDW 13.2, RDW Differential 46.0 H, Plt Count 75 L, MPV 11.2, Immature Gran % (Auto) 0.500, Neut % (Auto) 83.8 H, Lymph % (Auto) 6.8 L, [place] % (Auto) 8.8, Eos % (Auto) 0.0, Baso % (Auto) 0.1, Absolute Neuts (auto) 6.9, Absolute Lymphs (auto) 0.56 L, Total Counted Not Reportable 07/13/18 05:25: Sodium 134 L, Potassium 4.0, Chloride 97 L, Carbon Dioxide 29.0, Anion Gap 8, BUN 8, Creatinine 0.62 L, Estim Creat Clear Calc 142.27, Est GFR (MDRD) Af Amer 175, Est GFR (MDRD) Non-Af 145, BUN/Creatinine Ratio 13.0, Glucose 163 H, Calcium 8.9 Current Medications Acetaminophen (Tylenol) 650 mg PO Q4H PRN PRN PRN Reason: Fever, pain Al Hydroxide/Mg Hydroxide (Mylanta Ii) 30 ml PO Q6H PRN PRN PRN Reason: Gastric Burning Albuterol/Ipratropium (Duoneb) 3 ml INHALATION Q4H.RT LARISA Last Admin: 07/13/18 10:58 Dose: 3 ml Amlodipine Besylate (Norvasc) 10 mg PO DAILY LARISA Last Admin: 03/18/19 08:32 Dose: 10 mg Aspirin (Aspirin, Baby) 81 mg PO DAILY@0800 [facility] Last Admin: 07/13/18 08:22 Dose: 81 mg Clopidogrel Bisulfate (Plavix) 75 mg PO DAILY [facility] Last Admin: 07/13/18 08:23 Dose: 75 mg Docusate Sodium (Colace) 200 mg PO BID PRN PRN PRN Reason: Constipation Last Admin: 07/12/18 10:57 Dose: 200 mg Guaifenesin (Mucinex) 1,200 mg PO BID [facility] Last Admin: 07/13/18 08:24 Dose: 1,200 mg Hydralazine HCl (Apresoline Iv) 10 mg IV Q4H PRN PRN PRN Reason: SBP > 160 Last Admin: 07/11/18 11:01 Dose: 10 mg Sodium Chloride () 1,000 mls @ 125 mls/hr IV .Q8H [facility] Last Admin: 07/13/18 11:44 Dose: 125 mls/hr Piperacillin Sod/Tazobactam (Sod 3.375 gm/ Sodium Chloride) 50 mls @ 12.5 mls/hr IV Q8 [facility] Last Admin: 07/13/18 06:09 Dose: 12.5 mls/hr Ipratropium Valera (Atrovent) 0.5 mg INHALATION Q2H.RT PRN PRN Reason: WHEEZING Levetiracetam (Keppra Tablet) 1,000 mg PO BID [facility] Last Admin: 07/13/18 08:23 Dose: 1,000 mg Lisinopril (Zestril) 20 mg PO DAILY [facility] Last Admin: 07/13/18 08:23 Dose: 20 mg Lorazepam (Ativan) 2 mg PO Q2H PRN PRN; Protocol PRN Reason: CIWA score > 8 but <15 Last Admin: 07/13/18 08:22 Dose: 2 mg Lorazepam (Ativan) 2 mg PO UD PRN; Protocol PRN Reason: CIWA score >/=15. Last Admin: 07/13/18 03:15 Dose: 2 mg Lorazepam (Ativan) 2 mg IV Q2H PRN PRN; Protocol PRN Reason: CIWA score > 8 but <15 Lorazepam (Ativan) 2 mg IV UD PRN; Protocol PRN Reason: CIWA score >/=15. Magnesium Hydroxide (Milk Of Magnesia) 30 ml PO DAILY PRN PRN Reason: Constipation Methylprednisolone (Solu-Medrol) 40 mg IV Q8 [facility] Last Admin: 07/13/18 06:10 Dose: 40 mg Multivitamins/Minerals ([facility]erals) [facility] Last Admin: 07/13/18 08:22 Dose: 1 tablet Nicotine (Nicoderm Cq (Pbkc)) 21 mg TRANSDERM. DAILY [facility] Last Admin: 07/13/18 08:33 Dose: 21 mg Nutritional Formula (Lactose Free) (Ensure Enlive) 120 ml PO 4X/DAY [facility] Last Admin: 07/13/18 08:23 Dose: Not Given Ondansetron HCl (Zofran) 4 mg IV Q8H PRN PRN PRN Reason: Nausea Oxycodone HCl (Oxyir) 5 mg PO Q4H PRN PRN PRN Reason: Moderate Pain (pain scale 4-5) Last Admin: 07/13/18 11:42 Dose: 5 mg Pantoprazole Sodium (Protonix) 40 mg PO DAILY [facility] Last Admin: 07/13/18 08:23 Dose: 40 mg Paroxetine HCl (Paxil) 20 mg PO DAILY [facility] Last Admin: 07/13/18 08:23 Dose: 20 mg Sodium Chloride () 5 - 15 ml IV UD PRN PRN Reason: SALINE FLUSH Last Admin: 07/13/18 06:17 Dose: 10 ml Thiamine HCl ([facility]amin B1) [facility] Stop: 07/13/18 17:01 Last Admin: 07/13/18 08:22 Dose: 100 mg Medical Necessity - Tobacco Use Smoking Status: Current every day smoker Tobacco Use: Cigarettes Assessment/Plan All Active Problems Multilobar lung infiltrate (Acute) Acute respiratory failure with hypoxia (Acute) Mediastinal lymphadenopathy (Acute) Bronchospasm (Acute) Sepsis (Acute) Liver mass (Acute) Hyponatremia (Acute) Hypokalemia (Acute) 1. Sepsis due to community acquired pneumonia * SIRS criteria- 05/01 (tachypnea) * white cell count is down to 10.7 * now on 2L of oxygen, however, he still remains SOB and is wheezing. * sputum cultures were negative, blood cultures were negative and respiratory panel was also negative. Urine for strep and Legionella were also negative. * Antibiotics broadened to IV Zosyn yesterday. * On IV Solu-Medrol. * Pulmo Consulted on account of patient's persistent of breath even though his oxygen requirements are decreasing. Ceftriaxone and azithromycin; will broaden antibiotics in light of patient still not feeling better and de- escalate as per culture results. * Titrate oxygen to maintain saturation more than 90%. 2. Acute hypoxemic respiratory failure due to community-acquired pneumonia * Was requiring up to 15 L of oxygen on admission and was transitioned to BiPAP. Now on 2 L of oxygen * still feels very SOB and is wheezing * pulmo consulted as under 1. * On breathing treatments with duo nebs. * titrate oxygen to maintain sats>90% * on IV solumedrol * pulmo consulted,a s under 1. * patient does have an extensive smoking history and likely has underlying COPD which is contributing to respiratory failure 3. Hypokalemia: resolved. 4. Seizure disorder: on Keppra 5. Thrombocytopenia: platelets are 75 today. chronic. Likely due to alcohol abuse. WIll monitor 6. Hyponatremia: * Na is 134 today. IWll monitor * 7. Alcohol abuse: * drinks 9 12 oz cans daily. * on beer regimen; patient now requesting alcohol detox via [facility] services. [facility] will accept patient. Will start alcohol detox with Librium. * CIWA score today- 4 * 8. PAD s/p LLE stent: on plavix and statin therapy 9. Anxiety and depression: on paroxetine and trazodone. DVT prophylaxis: SCDs Code Visit Inpatient E&M: 75624 [facility] Hosp L3
--- NOTE | 2018-07-13 13:33 | CASEMGMT ---
Addendum entered by Tiffany Osorio 07/13/18 16:24: Yoselin from [facility] saw pt and states she is placing call to [phone] in regards to inpt rehab for pt at discharge and states will f/u with this RN MISTY tomorrow regarding discharge date/plan. Joni LAMBERT CM Original Note: Addendum entered by Tiffany Osorio 07/13/18 16:24: 1512 This RN MISTY received call back from Yoselin at [facility] and she states she will be up to speak with pt. Joni LAMBERT CM Original Note: PETRA JAY assessment: Face to Face with patient for initial transition planning/care coordination assessment. RN MISTY introduced self and role at [facility], pt voices understanding and consents to assessment at this time. Pt is sitting up in bed and very shaky at this time. Pt is A/Ox4 at this time and answers all questions appropriately at this time. Care providers, pharmacy, and demographics verified at this time. PCP: Jordi Specialists: SANJEEV Elliott Preferred Pharmacy: [facility] Insurance: [facility] Prescription Benefit: [facility] Living Will/HPOA: Pt states does not have LW/HPOA and declines info at this time. LNOK: Anita Avila, aunt Living Arrangements: Pt states lives with and helps care for a friend in duplex with 2-3 steps in and states no concerns. Pt states is normally independent with ADL's but does get forgetful at times. Transportation: Pt states does not drives that friends drive or he walks and states no transportation concerns at this time. DME/HHC: Pt states does have grab bars and shower chair and states no need for any further DME at this time. Pt states no hx of HHC or SNF in the past. Pt states has done ETOH rehab at a place in [place] and at [facility] in the past. Pt states that he normally drinks 10-11beers/daily and is interested in [facility] for detox at this time as well as inpt ETOH rehab once discharged from [facility] at this time. Per Loly LAMBERT, pt has only had one beer today and this was prior to 0700 and she is aware that pt is interested in detox at this time. Message left for [facility] at this time regarding pt and Dr. Whiting aware of pt request and she states she will order [facility] protocols at this time. Pt is aware that the beer therapy will be discontinued and he agrees at this time. Pt states no concerns with going home at time of discharge. Pt is disabled. Pt states was smoking 1.5packs/day prior to this admission and drinks 10-11beers/day. Pt states no further concerns/needs at this time. CM to follow for any further discharge planning/needs. Advised pt to ask for CM if any further questions/concerns/needs arise, voices understanding. Plan: TBD, possibly inpt ETOH rehab SStsmita LAMBERT CM
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
[2018-07-13] MEDS: chlordiazePOXIDE 25 MG Capsule 50 MG PO ×2 (16:14→20:31)
[2018-07-14] VITALS (16 sets, daily range): BP systolic 147–162; BP diastolic 73–105; PULSE 80–108; RESP 12–24; TEMP 36.4–36.6; O2SAT 90–100
[2018-07-14] MEDS: chlordiazePOXIDE 25 MG Capsule 50 MG PO ×3 (02:28→15:42)
[2018-07-14] MEDS: 0.9% Normal Saline 1,000 ML 125 ML IV ×2 (05:20→14:00)
[2018-07-14] MEDS: oxyCODONE 5 MG Tablet PO ×2 (05:28→12:45)
[2018-07-14 05:32] LABS: Absolute Lymphocyte Count 1.07 X10^3/ul (0.83-4.51); Absolute Neutrophil Count 6.3 X10^3/uL (2.0-7.7); Basophil# 0.02 X10^3/uL; Basophil% 0.2 % (0-1); Hematocrit 42.5 % (40-54); Hemoglobin 14.1 g/dl (13.0-16.5); Lymphocyte # 1.07 X10^3/ul (4.0); Lymphocyte % 12.3 % (19-41); Mean Corp Hgb Conc 33.2 g/gl (32-36); Mean Corpuscular Hgb 31.8 pg (27.0-32.0); Mean Corpuscular Volume 95.9 fL (80-94); Mean Platelet Vol. 11.1 fl (6.2-12.0); Monocyte# 1.21 X10^3/uL; Monocyte% 13.9 % (0-10); Neutrophil # 6.31 X10^3/uL (2.7-7.7); Neutrophil % 72.3 % (47-70); Platelet Count 99 K/mm3 (150-450); RBC Distribution Width CV 13.6 % (11.6-14.6); Red Blood Count 4.43 M/mm3 (4.6-6.2); White Blood Count 8.7 K/mm3 (4.4-11.0)
[2018-07-14 05:36] LABS: Anion Gap 11 (5-15); BUN 11 mg/dL (7-18); BUN/Creat Ratio 16.8 RATIO (10-20); Calcium,Total 9.2 mg/dL (8.5-10.1); Chloride 95 mmol/L (98-107); Creatinine, Serum 0.66 mg/dL (0.70-1.30); EST Glomerular Filtration Rate 135 mL/min (>60); Est Glom Filt Rate - Afr Amer 164 mL/min (>60); Estimated Creatinine Clearance 133.65 ml/min; Glucose 159 mg/dL (74-106); Potassium 3.7 mmol/L (3.5-5.1); Sodium Level 133 mmol/L (136-145)
[2018-07-14 05:41] LABS: POSITIVE COUNT NO; POSITIVE DIFFERENTIAL NO; POSITIVE MORPHOLOGY NO
[2018-07-14 05:47] LABS: BNP,B-Type NATRIURETIC PEPTIDE 224.8 pg/mL (0-100)
[2018-07-14] MEDS: Ipratropium/Albuterol Sulfate 3 ML AMPUL.NEB INHALATION ×3 (07:03→19:20)
[2018-07-14] MEDS: Folic Acid 1 MG Tablet PO (07:49)
[2018-07-14] MEDS: LORazepam 1 MG Tablet 2 MG PO (07:50)
[2018-07-14] MEDS: Thiamine Hydrochloride 100 MG Tablet PO (07:50)
[2018-07-14] MEDS: Aspirin 81 MG TAB.CHEW PO (07:50)
[2018-07-14] MEDS: Multivitamins,Ther W-Minerals Tablet 1 TABLET PO (07:50)
--- NOTE | 2018-07-14 08:59 | NEWVISION ---
[facility] provided rehabilitation referral options to Tiffany on PCU for patient: [facility] in [place], and [facility] in [place], both having current availability. [facility] has been contacted, they have not returned call to advise about bed availability. They may be used for outpatient services at any time however.
[2018-07-14] MEDS: levETIRAcetam 1,000 MG Tablet 1000 MG PO (09:03)
[2018-07-14] MEDS: guaiFENesin 1,200 MG Tablet 1200 MG PO (09:03)
[2018-07-14] MEDS: Paroxetine 20 MG Tablet PO (09:04)
[2018-07-14] MEDS: Lisinopril 20 MG Tablet PO (09:04)
[2018-07-14] MEDS: Pantoprazole Sodium 40 MG Tablet PO (09:04)
[2018-07-14] MEDS: Clopidogrel Bisulfate 75 MG Tablet PO (09:04)
[2018-07-14] MEDS: amLODIPine 10 MG Tablet PO (09:04)
--- NOTE | 2018-07-14 10:00 | PN_ITS ---
Patient Problems: Active and Suspected Problems Multilobar lung infiltrate (Acute) Acute respiratory failure with hypoxia (Acute) Mediastinal lymphadenopathy (Acute) Bronchospasm (Acute) Sepsis (Acute) Subjective: Patient did okay overnight. Patient reports subjective improvement in overall condition. Patient has been weaned to room air this morning. Patient denies any productive cough. Patient has had higher blood pressures and tachycardia and does report a tremor over the last 24 hours. Continues to be impulsive, but no hallucinations have been reported. Objective: Echocardiogram shows an EF of 55% with stage I diastolic dysfunction and elevated pulmonary artery pressure of 38 mmHg. - Physical Exam General: Alert, Cooperative, No apparent distress, Disoriented, - - No conversational dyspnea. HEENT: Atraumatic, PERRLA, EOMI, Normocephalic, - - No scleral icterus or injection noted. Oral: Moist Mucosa, No Gingival or Mucosal Lesions/ Ulcerations Neck: Supple, No JVD, No Nodes, Trachea Midline Lungs: No rhonchi, No wheeze, No rales, Diminished, - - Symmetric expansion. No dullness to percussion. Cardiovascular: Normal S1, Normal S2, No murmurs, No rub noted, No Gallop, Tachycardic Abdomen: Bowel Sounds Present, Soft, Non Tender, Non-Distended Extremities: No clubbing, No cyanosis, Edema - Trace lower extremity Skin: - - No change from previous Musculoskeletal: No Tenderness to Palpation of Joints or Extremities Lymphatic: No Cervical, Supraclavicular, or Inguinal Adenopathy Neurological: Cranial nerves II-XII grossly intact, Neuro grossly intact, - - Tremor noted of the peripheral extremities. Psych/Mental Status: Anxious, Impulsive, Restless Vital Signs Temp Pulse Resp BP Pulse Ox 36.5 C L 104 H 18 155/105 H 95 07/14/18 09:00 07/14/18 09:00 07/14/18 09:00 07/14/18 09:00 07/14/18 09:07 Oxygen Flow Rate (L/min) 2 Oxygen Delivery Method Room Air Weight: 88.9 kg Body Mass Index (BMI) 28.0 Finger Stick Blood Glucose 103 Intake and Output for Last 24 Hours 07/12/18 07/13/18 07/14/18 23:59 23:59 23:59 Intake Total 6800 / 6800 5372.7 / 5372.7 1185 / 1185 Output Total 3175 / 3175 5585 / 5585 325 / 325 Balance 3625 / 3625 -212.3 / -212.3 860 / 860 Microbiology Past 72 Hours 07/11/18 Unknown Gram Stain - Final Sputum, Expectorated/Coughed Respiratory Culture - Final Mixed normal respiratory sol. No Haemophilus, Streptococcus pneumoniae, beta-hemolytic Streptococcus or Staphylococcus aureus isolated. 07/10/18 18:55 Blood Culture - Preliminary Blood Culture (Wb) - Left Forearm No growth in 48 hours. 07/10/18 18:45 Blood Culture - Preliminary Blood Culture (Wb) - Right Wrist No growth in 48 hours. 07/10/18 20:40 Respiratory Panel (PCR) - Final Mucosa - Nasopharyngeal Laboratory Tests Past 24 Hrs 07/11/18 07/14/18 07/14/18 14:06 05:00 05:00 WBC 8.7 RBC 4.43 L Hgb 14.1 Hct 42.5 MCV 95.9 H MCH 31.8 MCHC 33.2 RDW 13.6 RDW Differential 48.0 H Plt Count 99 L MPV 11.1 Immature Gran % (Auto) 1.300 H Neut % (Auto) 72.3 H Lymph % (Auto) 12.3 L [place] % (Auto) 13.9 H Eos % (Auto) 0.0 Baso % (Auto) 0.2 Absolute Neuts (auto) 6.3 Absolute Lymphs (auto) 1.07 Total Counted Not Reportable Diff Path Review Reviewed Sodium 133 L Potassium 3.7 Chloride 95 L Carbon Dioxide 27.0 Anion Gap 11 BUN 11 Creatinine 0.66 L Estim Creat Clear Calc 133.65 Est GFR (MDRD) Af Amer 164 Est GFR (MDRD) Non-Af 135 BUN/Creatinine Ratio 16.8 Glucose 159 H Calcium 9.2 Ammonia B-Natriuretic Peptide 07/14/18 07/14/18 05:00 05:00 WBC RBC Hgb Hct MCV MCH MCHC RDW RDW Differential Plt Count MPV Immature Gran % (Auto) Neut % (Auto) Lymph % (Auto) [place] % (Auto) Eos % (Auto) Baso % (Auto) Absolute Neuts (auto) Absolute Lymphs (auto) Total Counted Diff Path Review Sodium Potassium Chloride Carbon Dioxide Anion Gap BUN Creatinine Estim Creat Clear Calc Est GFR (MDRD) Af Amer Est GFR (MDRD) Non-Af BUN/Creatinine Ratio Glucose Calcium Ammonia 24.0 B-Natriuretic Peptide 224.8 H Medical Necessity - Tobacco Use Smoking Status: Current every day smoker Tobacco Use: Cigarettes Assessment/Plan All Active Problems Multilobar lung infiltrate (Acute) Acute respiratory failure with hypoxia (Acute) Mediastinal lymphadenopathy (Acute) Bronchospasm (Acute) Sepsis (Acute) Liver mass (Acute) Hyponatremia (Acute) Hypokalemia (Acute) RECOMMENDATIONS: 1. Encourage incentive spirometer and Acapella 2. Wean oxygen as tolerated 3. Transition to prednisone therapy 4. Okay to wean antibiotic spectrum IMPRESSIONS: 1. Acute hypoxic respiratory failure secondary to community-acquired pneumonia Patient is not reporting any aspiration type symptoms. Patient does have right middle and left lower lobe infiltrates on initial CT. Patient has had some increased in heart rate and blood pressure recently and this may be indicating an element of withdrawal. Patient continues to improve and is on room air at this time. Will transition to oral prednisone therapy. Patient can likely be transitioned to Augmentin therapy. Continue with aggressive incentive spirometer and ambulation as tolerated. Patient may have an element of mild acute on chronic diastolic congestive heart failure associated with tachycardia from withdrawal type symptoms. This does not appear to be a predominant factor in his hypoxia from my perspective. 2. Alcohol withdrawal Patient is reportedly interested in alcohol cessation per case management. Patient appears to be improving from an alcohol withdrawal standpoint. Still has a little tremor noted on my examination. Platelets continue to improve. 3. Seizure disorder/history of trach/thrombocytopeni a/hyponatremia/peripheral artery disease/anxiety/depression Complicates care, management, recovery and prognosis. Platelet count and sodium are improving with current therapy. Ammonia was unremarkable. Code Visit Inpatient E&M: 43764 Subs Hosp L2
--- NOTE | 2018-07-14 10:19 | CASEMGMT ---
Addendum entered by Concha Piedra 07/14/18 11:25: RUCHI received a call from Luis at [facility]. He was going to call patient to talk for a little while. He then was planning on coming in to talk with patient at some point. He will notify SW when he knows a little more. Concha FLORES Original Note: RUCHI spoke with patient this am and he confirms he would like treatment for his alcoholism. RUCHI told him [facility] has a new program where SW can call and have a therapist come in and talk with him. He said that would be great. RUCHI called [facility]'s new 24 hour treatment navigator line and spoke with Luis Yarbrough. He said he has some time around 1130 today he could talk with patient. He will call SW back around 1130. Concha FLORES
[2018-07-14] MEDS: Amox/Clavulanate 875 MG Tablet PO ×2 (10:27→16:49)
[2018-07-14] MEDS: predniSONE 20 MG Tablet 40 MG PO (10:27)
[2018-07-14] MEDS: 0.9% NaCl Peripheral Flush Adult/Peds IV ×2 (12:30→14:42)
[2018-07-14] MEDS: LORazepam 2 MG/ML Syringe IV ×4 (12:33→18:47)
[2018-07-14] MEDS: Ondansetron 4 MG/2 ML Vial IV (12:33)
--- NOTE | 2018-07-14 13:04 | PCM.PROGNOTE ---
Patient Problems: Active and Suspected Problems Multilobar lung infiltrate (Acute) Acute respiratory failure with hypoxia (Acute) Mediastinal lymphadenopathy (Acute) Bronchospasm (Acute) Sepsis (Acute) Subjective: Patient seen and examined. Complains of tremors and diaphoresis. Reports anxiety. Complains of continued shortness of breath. Continues to require supplemental oxygen. Nursing reports patient has been asking to smoke his cigarettes and have beer. - Physical Exam General: Alert, Oriented x3, Cooperative, - - Appears anxious HEENT: Atraumatic, PERRLA, EOMI, Normocephalic Oral: Dry Mucosa Neck: Supple, No JVD, Negative Carotid Bruits Lungs: Diminished, Wheezes Cardiovascular: Regular Rhythm, Normal S1, Normal S2, No murmurs, Tachycardic Abdomen: Bowel Sounds Present, Soft, Non Tender, Non-Distended Extremities: No clubbing, No cyanosis, No edema, Capillary Refill Less than 3 Seconds Skin: No rashes, No breakdown Musculoskeletal: No Tenderness to Palpation of Joints or Extremities Neurological: Cranial nerves II-XII grossly intact, Neuro grossly intact Psych/Mental Status: Anxious, Impulsive Vital Signs Temp Pulse Resp BP Pulse Ox 97.6 F L 105 H 18 153/101 H 94 07/14/18 12:30 07/14/18 12:30 07/14/18 12:30 07/14/18 12:30 07/14/18 12:30 Oxygen Flow Rate (L/min) 2 Oxygen Delivery Method Nasal Cannula Weight: 195 lb 15.855 oz Body Mass Index (BMI) 28.0 Finger Stick Blood Glucose 103 Intake and Output for Last 24 Hours 07/12/18 07/13/18 07/14/18 23:59 23:59 23:59 Intake Total 6800 / 6800 5372.7 / 5372.7 2819 / 2819 Output Total 3175 / 3175 5585 / 5585 325 / 325 Balance 3625 / 3625 -212.3 / -212.3 2494 / 2494 Microbiology Past 72 Hours 07/11/18 Unknown Gram Stain - Final Sputum, Expectorated/Coughed Respiratory Culture - Final Mixed normal respiratory sol. No Haemophilus, Streptococcus pneumoniae, beta-hemolytic Streptococcus or Staphylococcus aureus isolated. 07/10/18 18:55 Blood Culture - Preliminary Blood Culture (Wb) - Left Forearm No growth in 48 hours. 07/10/18 18:45 Blood Culture - Preliminary Blood Culture (Wb) - Right Wrist No growth in 48 hours. 07/10/18 20:40 Respiratory Panel (PCR) - Final Mucosa - Nasopharyngeal Laboratory Tests Past 24 Hrs 07/14/18 07/14/18 07/14/18 05:00 05:00 05:00 WBC 8.7 RBC 4.43 L Hgb 14.1 Hct 42.5 MCV 95.9 H MCH 31.8 MCHC 33.2 RDW 13.6 RDW Differential 48.0 H Plt Count 99 L MPV 11.1 Immature Gran % (Auto) 1.300 H Neut % (Auto) 72.3 H Lymph % (Auto) 12.3 L [place] % (Auto) 13.9 H Eos % (Auto) 0.0 Baso % (Auto) 0.2 Absolute Neuts (auto) 6.3 Absolute Lymphs (auto) 1.07 Total Counted Not Reportable Sodium 133 L Potassium 3.7 Chloride 95 L Carbon Dioxide 27.0 Anion Gap 11 BUN 11 Creatinine 0.66 L Estim Creat Clear Calc 133.65 Est GFR (MDRD) Af Amer 164 Est GFR (MDRD) Non-Af 135 BUN/Creatinine Ratio 16.8 Glucose 159 H Calcium 9.2 Ammonia 24.0 B-Natriuretic Peptide 07/14/18 05:00 WBC RBC Hgb Hct MCV MCH MCHC RDW RDW Differential Plt Count MPV Immature Gran % (Auto) Neut % (Auto) Lymph % (Auto) [place] % (Auto) Eos % (Auto) Baso % (Auto) Absolute Neuts (auto) Absolute Lymphs (auto) Total Counted Sodium Potassium Chloride Carbon Dioxide Anion Gap BUN Creatinine Estim Creat Clear Calc Est GFR (MDRD) Af Amer Est GFR (MDRD) Non-Af BUN/Creatinine Ratio Glucose Calcium Ammonia B-Natriuretic Peptide 224.8 H Medical Necessity - Tobacco Use Smoking Status: Current every day smoker Tobacco Use: Cigarettes Assessment/Plan All Active Problems Multilobar lung infiltrate (Acute) Acute respiratory failure with hypoxia (Acute) Mediastinal lymphadenopathy (Acute) Bronchospasm (Acute) Sepsis (Acute) Liver mass (Acute) Hyponatremia (Acute) Hypokalemia (Acute) 1. Acute hypoxic respiratory failure secondary to community acquired pneumonia, sepsis ruled out-pulmonary medicine following. Wean oxygen as tolerated to maintain O2 sat above 90%. Transition to Augmentin. Albuterol and DuoNeb aerosols. IV Solu-Medrol transition to oral prednisone given extensive smoking history and likely contributing underlying COPD. Walking pulse ox prior to discharge. 2. Alcohol withdrawal with chronic alcohol abuse-[facility] consulted. Continue Librium taper. Plan for inpatient treatment at discharge. Continue thiamine, folic acid, multivitamin supplementation. 3. Seizure disorder-continue Keppra regimen. 4. Hyponatremia-improved. Trend BMP. 5. PAD status post left lower extremity stent-continue Plavix, statin regimen. 6. Anxiety/depression-continue home fluoxetine and trazodone regimen. 7. Thrombocytopenia-stable, trend CBC. 8. Tobacco dependence-encouraged continued cessation. 9. GERD-continue PPI. DVT prophylaxis-SCDs Discharge planning: Possible inpatient rehab for ETOH pending patient medically stable. This patient was seen by HUEY Waldrop under the supervision of Dr. Raygoza.
[2018-07-14] MEDS: Acetaminophen 325 MG Tablet 650 MG PO (14:40)
--- NOTE | 2018-07-14 14:45 | CASEMGMT ---
According to admission questions patient does not have a Healthcare LW or Healthcare POA. Concha FLORES
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
--- NOTE | 2018-07-14 21:16 | NURSING ---
Pt left MD MARCIA aware. Pt escorted by Dania HURST. Pt left w/ all personal belongings in his possession.
== END 2018-07-14 21:11 | disposition left against medical advice (07) | DRG 133 ==
LOC: ED 20:22 → PCU 20:42
PROVIDERS: Internal Medicine Critical Care Medicine; Student in an Organized Health Care Education/Training Program; Admitting Provider Family Medicine; Emergency Provider Emergency Medicine; Family Provider Family Medicine; PCP Family Medicine; Visit Provider Internal Medicine
DX: J96.01 Acute respiratory failure with hypoxia (principal); J18.9 Pneumonia, unspecified organism; E87.1 Hypo-osmolality and hyponatremia; D69.6 Thrombocytopenia, unspecified; K21.9 Gastro-esophageal reflux disease without esophagitis; G40.909 Epilepsy, unspecified, not intractable, without status epilepticus; F10.239 Alcohol dependence with withdrawal, unspecified; E87.6 Hypokalemia; F17.210 Nicotine dependence, cigarettes, uncomplicated; I73.9 Peripheral vascular disease, unspecified; E78.5 Hyperlipidemia, unspecified; I10 Essential (primary) hypertension; Z95.828 Presence of other vascular implants and grafts; R59.1 Generalized enlarged lymph nodes; J98.01 Acute bronchospasm
CPT/HCPCS: 36415; 71046; 71275; 80048; 80076; 80307; 80320; 82140; 83605; 83735; 83880; 84100; 84484; 85025; 87040; 87070; 87205; 87449; 87633; 93005; 93306; 94002; 94003; 94640; 97802; 99285; 99406; J7030; Q9957; Q9967; A4216; C8929; G0480; J2405

== ENCOUNTER 2018-07-15 18:53 | Observation (INO) | payer MEDICAID, SELFPAY ==
[2018-07-10 21:35] VITALS: BMI 28.0
[2018-07-15] VITALS (11 sets, daily range): BP systolic 107–143; BP diastolic 73–88; PULSE 99–104; RESP 17–28; TEMP 36.7–36.9; O2SAT 86–95; BMI 25.6; BMI 28.3; BMI 28.4
--- NOTE | 2018-07-15 19:34 | EKG12_ITS ---
Test Reason : SOB Blood Pressure : / mmHG Vent. Rate : 101 BPM Atrial Rate : 101 BPM P-R Int : 122 ms QRS Dur : 092 ms QT Int : 374 ms P-R-T Axes : 034 017 027 degrees QTc Int : 484 ms Sinus tachycardia with Premature atrial complexes Possible Left atrial enlargement Borderline ECG Confirmed by JOSE DANIEL FERRARI, FERNANDEZ ([id number]), food editor LETHA MITCHELL ([id number]) on 07/20/2018 1:03:23 PM Referred By: Palomo Purdy Confirmed By:FERNANDEZ SKY MD
--- NOTE | 2018-07-15 19:40 | RAD_ITS ---
STUDY: X-RAY CHEST REASON FOR EXAM: Male, 53 years old. Chest pain. TECHNIQUE: Single frontal view of the chest. COMPARISON: July 10, 2018 FINDINGS: There is no new focal consolidation. There are stable left basilar ill-defined opacities. Normal size heart. Normal mediastinum and jazmine. Normal visualized pulmonary arteries. Normal visualized aortic arch and descending thoracic aorta. Normal visualized thoracic spine. Normal visualized ribs, clavicles, and shoulders. There is no demonstrated abnormality of the visualized soft tissue structures of the upper abdomen. RAD/Chest 1 View (Portable) IMPRESSION: Stable left basilar ill-defined opacities may be secondary to underlying atelectasis and/or pneumonia. Electronically Signed: Nancy Jaramillo MD at 20:28 EDT Tel , Service support ,
[2018-07-15] MEDS: Albuterol 2.5 MG/3 ML VIAL.NEB. INHALATION (19:58)
[2018-07-15] MEDS: Ipratropium/Albuterol Sulfate 3 ML AMPUL.NEB INHALATION (19:58)
[2018-07-15 20:09] LABS: Hematocrit 43.7 % (40-54); Hemoglobin 14.3 g/dl (13.0-16.5); Mean Corp Hgb Conc 32.7 g/gl (32-36); Mean Corpuscular Hgb 31.7 pg (27.0-32.0); Mean Corpuscular Volume 96.9 fL (80-94); Mean Platelet Vol. 10.2 fl (6.2-12.0); Platelet Count 163 K/mm3 (150-450); RBC Distribution Width CV 13.6 % (11.6-14.6); RBC Distribution Width SD 47.5 fl (35.1-43.9); Red Blood Count 4.51 M/mm3 (4.6-6.2); White Blood Count 8.9 K/mm3 (4.4-11.0)
[2018-07-15 20:11] LABS: Differential Indicated MANUAL DIFF; POSITIVE COUNT YES; POSITIVE DIFFERENTIAL YES; POSITIVE MORPHOLOGY YES
[2018-07-15 20:31] LABS: Anion Gap 10 (5-15); BUN 11 mg/dL (7-18); BUN/Creat Ratio 17.4 RATIO (10-20); Calcium,Total 8.5 mg/dL (8.5-10.1); Chloride 100 mmol/L (98-107); Creatinine, Serum 0.63 mg/dL (0.70-1.30); EST Glomerular Filtration Rate 141 mL/min (>60); Est Glom Filt Rate - Afr Amer 170 mL/min (>60); Glucose 87 mg/dL (74-106); Potassium 3.7 mmol/L (3.5-5.1); Sodium Level 132 mmol/L (136-145)
[2018-07-15 20:45] LABS: Absolute Lymphocyte Count 1.78 X10^3/ul (0.83-4.51); Absolute Neutrophil Count 4.9 X10^3/uL (2.0-7.7); Lymphocyte # 1.78 X10^3/ul (4.0); Metamyelocyte 1 % (0-1); Myelocyte 3 (0-0); Neutrophil-Band 1 % (0-5); Neutrophil-Segmented 54 % (47-70)
[2018-07-15 20:46] LABS: Differential Comment SCANNED; Eosinophil 1 % (0-5); Lymphocyte 20 % (19-41); Monocyte 20 % (0-10)
[2018-07-15 20:48] LABS: Platelet Estimate ADEQUATE (ADEQ)
[2018-07-15 20:49] LABS: Total Cells Counted 100 (MANUAL DIFF)
--- NOTE | 2018-07-15 20:58 | ED.RN ---
AFTER EXITING ANOTHER PATIENT ROOM. DEBORAH WAS FOUND SITTING IN CHAIR WITH IV REMOVED AND BLOOD DROPLETS ALL OVER THE FLOOR. PER PT GERONIMO DASH DR TOLD ME TO GO HOME. ED DR WAS MADE AWARE AND BANDAGE PLACED OVER OLD IV SITE. IV CATHETER WAS LOCATED AND WAS INTACT. PT WAS INFORMED TO WAIT IN BED AND WE WOULD COME UP WITH ANOTHER PLAN. Lizbeth JOSHUA RN [id number]
--- NOTE | 2018-07-15 21:01 | ED.RN ---
PT PULSE OX 82-85% ON ROOM AIR SITTING IN THE BED. DR WREN NOTIFIED
--- NOTE | 2018-07-15 21:09 | ED.RN ---
SEPSIS SCREEN DISCONTINUED PER DR WREN ORDER. Lizbeth JOSHUA, RN [id number]
--- NOTE | 2018-07-15 21:15 | ED.VISSUMM ---
- ER Visit Summary Date of Service: 07/15/18 Chief Complaint: Shortness of breath History of Present Illness: The patient is a 53 M history of alcohol abuse, prior DVT, hypertension, COPD without oxygen., Seizures from head trauma and intracranial bleed. Patient presents complaint shortness of breath. He was recently hospitalized and left AMA. At that time was diagnosed with pneumonia exacerbation COPD. He denies hemoptysis or chest pain. Physical Examination: Middle-aged male intoxicated. Blood pressure 187/81. Afebrile. Pulse ox 86% on room air hypoxic. H EENT exam poor dentition. Moist weeks membranes. Neck nontender no JVD. Lungs coarse breath sounds bilaterally. Prolonged respiratory phase. Extra Tory wheezing. Equal symmetrical. Heart regular rhythm rate about 100 no murmur. Abdomen soft and nontender. Normal bowel sounds no peritoneal signs. Extremities moves all 4. Calves nontender without edema. Neurologically he is intoxicated awake alert. Answering questions and following commands. Test Results: Chest x-ray shows bibasilar resolving infiltrates. Normal cardiac silhouette. EKG is a sinus tachycardia with PACs and a rate of 101. No signs of IA or ischemia. White count 8. Hemoglobin 14. Electrolytes unremarkable sodium 132. Normal gap. Troponin normal. Emergency Department Course and Treatment: Patient treated with albuterol and DuoNeb aerosols. On repeat exam his pulse ox on room air sitting in bed is 82%. Treatment Plan: IV Solu-Medrol. I spoke to the hospitalist the patient will be admitted. Disposition: Admission Impression: Acute exacerbation of COPD. Acute alcohol intoxication with a history of alcohol abuse Status post resolving bilateral lower lobe pneumonia. This note was generated with [employer] dictation software. It may contain incorrect words, spelling, and punctuation that were not noted in review of the chart prior to signing ED Disposition - Plan for ED Patient: Referrals: Stuart Bacon MD [Primary Care Provider] -
--- NOTE | 2018-07-15 21:18 | ED.DCSUM_ITS ---
- ER Visit Summary Date of Service: 07/15/18 Chief Complaint: Shortness of breath History of Present Illness: The patient is a 53 M history of alcohol abuse, prior DVT, hypertension, COPD without oxygen., Seizures from head trauma and intracranial bleed. Patient presents complaint shortness of breath. He was recently hospitalized and left AMA. At that time was diagnosed with pneumonia exacerbation COPD. He denies hemoptysis or chest pain. Physical Examination: Middle-aged male intoxicated. Blood pressure 187/81. Afebrile. Pulse ox 86% on room air hypoxic. H EENT exam poor dentition. Moist weeks membranes. Neck nontender no JVD. Lungs coarse breath sounds bilateral ly. Prolonged respiratory phase. Extra Tory wheezing. Equal symmetrical. Heart regular rhythm rate about 100 no murmur. Abdomen soft and nontender. Normal bowel sounds no peritoneal signs. Extremities moves all 4. Calves nontender without edema. Neurologically he is intoxicated awake alert. Answering questions and following commands. Test Results: Chest x-ray shows bibasilar resolving infiltrates. Normal cardiac silhouette. EKG is a sinus tachycardia with PACs and a rate of 101. No signs of OK or ischemia. White count 8. Hemoglobin 14. Electrolytes unremarkable sodium 132. Normal gap. Troponin normal. Emergency Department Course and Treatment: Patient treated with albuterol and DuoNeb aerosols. On repeat exam his pulse ox on room air sitting in bed is 82%. Treatment Plan: IV Solu-Medrol. I spoke to the hospitalist the patient will be admitted. Disposition: Admission Impression: Acute exacerbation of COPD. Acute alcohol intoxication with a history of alcohol abuse Status post resolving bilateral lower lobe pneumonia. This note was generated with [employer] dictation software. It may contain incorrect words, spelling, and punctuation that were not noted in review of the chart prior to signing ED Disposition - Plan for ED Patient: Referrals: Stuart Bacon MD [Primary Care Provider] -
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
[2018-07-15] MEDS: MethylPREDNISolone 125 MG/2 ML Vial IV (21:39)
--- NOTE | 2018-07-15 21:52 | ED.RN ---
ATTEMPTED TO TAKE PT TO THE FLOOR, PT REFUSED TO BE TRANSPORTED UNTIL HE FINISHES HIS SANDWICH
[2018-07-15] MEDS: chlordiazePOXIDE 25 MG Capsule PO (23:28)
[2018-07-15] MEDS: Amox/Clavulanate 875 MG Tablet PO (23:30)
[2018-07-15] MEDS: levETIRAcetam 1,000 MG Tablet 1000 MG PO (23:36)
[2018-07-15] MEDS: traZODone 50 MG Tablet PO (23:36)
[2018-07-16] VITALS (14 sets, daily range): BP systolic 120–158; BP diastolic 69–93; PULSE 70–103; RESP 16–24; TEMP 36.3–37; O2SAT 93–96
[2018-07-16] MEDS: chlordiazePOXIDE 25 MG Capsule PO ×3 (04:50→16:46)
[2018-07-16] MEDS: Ipratropium/Albuterol Sulfate 3 ML AMPUL.NEB INHALATION ×6 (05:00→23:07)
[2018-07-16 06:10] LABS: Allen Test POS; Base Excess 0 mmol/L (-2 to +2); Bicarbonate 24.5 mmol/L (22-26); Blood Gas Specimen Type ART; O2 Delivery Device Nasal Can; PO2 54 mmHG (75-100); SITE L Radial; SO2 87 % (95-99); Total Carbon Dioxide 26 mmol/L; pCO2 40.3 mmHg (35-45); pH 7.39 (7.35-7.45)
[2018-07-16] MEDS: Methocarbamol 750 MG Tablet PO ×2 (06:45→15:11)
[2018-07-16 06:48] LABS: Anion Gap 8 (5-15); BUN 14 mg/dL (7-18); BUN/Creat Ratio 21.1 RATIO (10-20); Calcium,Total 8.6 mg/dL (8.5-10.1); Chloride 102 mmol/L (98-107); Creatinine, Serum 0.66 mg/dL (0.70-1.30); EST Glomerular Filtration Rate 133 mL/min (>60); Est Glom Filt Rate - Afr Amer 161 mL/min (>60); Estimated Creatinine Clearance 133.65 ml/min; Glucose 208 mg/dL (74-106); Sodium Level 135 mmol/L (136-145)
[2018-07-16 07:10] LABS: Hematocrit 43.3 % (40-54); Hemoglobin 14.3 g/dl (13.0-16.5); Mean Corpuscular Hgb 31.9 pg (27.0-32.0); Mean Corpuscular Volume 96.7 fL (80-94); Mean Platelet Vol. 10.2 fl (6.2-12.0); Platelet Count 155 K/mm3 (150-450); RBC Distribution Width CV 13.5 % (11.6-14.6); Red Blood Count 4.48 M/mm3 (4.6-6.2); White Blood Count 5.5 K/mm3 (4.4-11.0)
[2018-07-16 07:12] LABS: Differential Indicated MANUAL DIFF; POSITIVE COUNT YES; POSITIVE DIFFERENTIAL YES; POSITIVE MORPHOLOGY YES
[2018-07-16 07:30] LABS: Lymphocyte 16 % (19-41); Metamyelocyte 1 % (0-1); Monocyte 1 % (0-10); Neutrophil-Band 3 % (0-5); Neutrophil-Segmented 79 % (47-70); Platelet Estimate ADEQUATE (ADEQ); Red Cell Morphology NORM C+C NORMAL (NORM C&C); Total Cells Counted 100 (MANUAL DIFF)
[2018-07-16 07:31] LABS: Absolute Lymphocyte Count 0.88 X10^3/ul (0.83-4.51); Absolute Neutrophil Count 4.5 X10^3/uL (2.0-7.7)
--- NOTE | 2018-07-16 08:53 | CASEMGMT ---
Addendum entered by Tiffany Woods 07/16/18 11:40: SW met with pt. SW introduced self and role at [facility]. Pt is alert and orientated x4. Pt confirms that [facility] has been in contact with him and he has a meeting with [facility] tomorrow. SW informed pt that if pt is still at [facility], the appointment with [facility] can be rescheduled. Pt states understanding. Original Note: Social Work Note RUCHI spoke with Concha UQILES who was working with pt earlier this week on PCU. Concha states that pt has an appointment at [facility] tomorrow at noon to discuss treatment options. Tiffany Woods TUGBOAT ENGINEER, IT TECHNICAL SUPPORT SPECIALIST
[2018-07-16] MEDS: predniSONE 20 MG Tablet 40 MG PO (09:39)
[2018-07-16] MEDS: Amox/Clavulanate 875 MG Tablet PO ×2 (09:39→16:46)
[2018-07-16] MEDS: Pantoprazole Sodium 40 MG Tablet PO (09:39)
[2018-07-16] MEDS: Multivitamins,Therapeutic Tablet 1 TABLET PO (09:41)
[2018-07-16] MEDS: Clopidogrel Bisulfate 75 MG Tablet PO (09:41)
[2018-07-16] MEDS: Thiamine Hydrochloride 100 MG Tablet PO (09:41)
[2018-07-16] MEDS: Folic Acid 1 MG Tablet PO (09:41)
[2018-07-16] MEDS: levETIRAcetam 1,000 MG Tablet 1000 MG PO ×2 (09:41→22:48)
[2018-07-16] MEDS: amLODIPine 10 MG Tablet PO (09:44)
[2018-07-16] MEDS: PARoxetine 10 MG Tablet PO (09:44)
[2018-07-16 10:11] LABS: Pathologist Review Reviewed
[2018-07-16 10:14] LABS: Pathologist Review Reviewed
--- NOTE | 2018-07-16 12:41 | PCM.PN.HOSP ---
Patient Problems: Active and Suspected Problems Acute respiratory failure with hypoxemia (Acute) Subjective: Breathing better. Visual hallucinations. Tremors. Abdominal cramps. Nausea. Vitals/I&O's: Vital Signs Temp Pulse Resp BP Pulse Ox 36.3 C L 96 18 140/87 H 94 07/16/18 09:30 07/16/18 11:00 07/16/18 11:00 07/16/18 09:30 07/16/18 09:30 Oxygen Flow Rate (L/min) 1 Oxygen Delivery Method Room Air Weight: 89.7 kg Body Mass Index (BMI) 28.3 Finger Stick Blood Glucose 103 Intake and Output for Last 24 Hours 07/14/18 07/15/18 07/16/18 23:59 23:59 23:59 Intake Total 200 / 200 Output Total 300 / 300 Balance -100 / -100 General: Alert, No apparent distress HEENT: Atraumatic, Normocephalic Oral: Moist Mucosa, No Gingival or Mucosal Lesions/ Ulcerations Neck: No Nodes, Thyroid Normal Size and Texture Lungs: Clear to auscultation, No rhonchi, No wheeze, Diminished Cardiovascular: Regular rate, Regular Rhythm, Normal S1, Normal S2, No murmurs Abdomen: Bowel Sounds Present, Soft, Non Tender, Non-Distended, No Hepato-splenomegaly Extremities: No edema, No Calf Tenderness Skin: No rashes, No breakdown Psych/Mental Status: Normal Affect, Appropriate Laboratory Results 07/15/18 19:50: WBC 8.9, RBC 4.51 L, Hgb 14.3, Hct 43.7, MCV 96.9 H, MCH 31.7, MCHC 32.7, RDW 13.6, RDW Differential 47.5 H, Plt Count 163, MPV 10.2, Neut % (Auto) Not Reportable, Absolute Neuts (auto) 4.9, Absolute Lymphs (auto) 1.78, Total Counted 100, Neutrophils % (Manual) 54, Band Neutrophils % 1, Lymphocytes % (Manual) 20, Monocytes % (Manual) 20 H, Eosinophils % (Manual) 1, Metamyelocytes % 1, Myelocytes % 3 H, Differential Comment SCANNED, Diff Path Review Reviewed, Platelet Estimate ADEQUATE 07/15/18 19:50: Sodium 132 L, Potassium 3.7, Chloride 100, Carbon Dioxide 22.0, Anion Gap 10, BUN 11, Creatinine 0.63 L, Estim Creat Clear Calc 135.60, Est GFR (MDRD) Af Amer 170, Est GFR (MDRD) Non-Af 141, BUN/Creatinine Ratio 17.4, Glucose 87, Calcium 8.5, Troponin I < 0.015 07/16/18 06:04: Specimen Type ART, Sample Site L Radial, pH 7.39, Bicarbonate Actual 24.5, POC Total CO2 26, Base Excess 0, O2 Saturation 87 L, ABG pCO2 40.3, ABG pO2 54 L, Prince Test POS, O2 Delivery Device Nasal Can, Liter Flow 1.0, Blood Gas Notified Whom HOSP 07/16/18 06:10: Sodium 135 L, Potassium 4.0, Chloride 102, Carbon Dioxide 25.0, Anion Gap 8, BUN 14, Creatinine 0.66 L, Estim Creat Clear Calc 133.65, Est GFR (MDRD) Af Amer 161, Est GFR (MDRD) Non-Af 133, BUN/Creatinine Ratio 21.1 H, Glucose 208 H, Calcium 8.6 07/16/18 06:10: WBC 5.5, RBC 4.48 L, Hgb 14.3, Hct 43.3, MCV 96.7 H, MCH 31.9, MCHC 33.0, RDW 13.5, RDW Differential 47.0 H, Plt Count 155, MPV 10.2, Neut % (Auto) Not Reportable, Absolute Neuts (auto) 4.5, Absolute Lymphs (auto) 0.88, Total Counted 100, Neutrophils % (Manual) 79 H, Band Neutrophils % 3, Lymphocytes % (Manual) 16 L, Monocytes % (Manual) 1, Metamyelocytes % 1, Diff Path Review Reviewed, Platelet Estimate ADEQUATE, RBC Morphology NORM C+C Current Medications Albuterol Sulfate (Ventolin Aerosols) 2.5 mg INHALATION Q2H PRN PRN PRN Reason: SHORTNESS OF BREATH Albuterol/Ipratropium (Duoneb) 3 ml INHALATION Q4H.RT [facility] Last Admin: 07/16/18 10:53 Dose: 3 ml Amlodipine Besylate (Norvasc) 10 mg PO DAILY [facility] Last Admin: 07/16/18 09:44 Dose: 10 mg Amoxicillin/Clavulanate Potassium (Augmentin Tablet) 875 mg PO BIDCM [facility] Last Admin: 07/16/18 09:39 Dose: 875 mg Bisacodyl (Dulcolax) 5 mg PO DAILY PRN PRN PRN Reason: Constipation Chlordiazepoxide (Librium) 50 mg PO Q6H [facility]; Taper Stop: 07/19/18 00:14 Last Admin: 07/16/18 09:39 Dose: 50 mg Clopidogrel Bisulfate (Plavix) 75 mg PO DAILY [facility] Last Admin: 07/16/18 09:41 Dose: 75 mg Dicyclomine HCl (Bentyl) 20 mg PO Q6H PRN PRN PRN Reason: abdominal discomfort [facility]) [facility] Last Admin: 07/16/18 09:41 Dose: 1 mg Hydroxyzine Pamoate (Vistaril Pamoate Capsule) 50 mg PO Q6H PRN PRN PRN Reason: Mild Anxiety (score 1/3) Levetiracetam (Keppra Tablet) 1,000 mg PO BID [facility] Last Admin: 07/16/18 09:41 Dose: 1,000 mg Lorazepam (Ativan) 1 mg IV Q4H PRN PRN PRN Reason: Severe Anxiety Magnesium Hydroxide (Milk Of Magnesia) 30 ml PO DAILY PRN PRN PRN Reason: Constipation Meclizine HCl (Antivert) 12.5 mg PO BID PRN PRN PRN Reason: DIZZINESS Methocarbamol (Methocarbamol) 750 mg PO Q6H PRN PRN PRN Reason: Muscle Aches Last Admin: 07/16/18 06:45 Dose: 750 mg [facility]ivitamins ([facility]amin) [facility] Last Admin: 07/16/18 09:41 Dose: 1 tablet Nicotine (Nicoderm Cq (Pbkc)) 21 mg TRANSDERM. DAILY [facility] Last Admin: 07/16/18 09:40 Dose: 21 mg Pantoprazole Sodium (Protonix) 40 mg PO DAILY [facility] Last Admin: 07/16/18 09:39 Dose: 40 mg Paroxetine HCl (Paxil) 10 mg PO DAILY [facility] Last Admin: 07/16/18 09:44 Dose: 10 mg Prednisone () [facility] Last Admin: 07/16/18 09:39 Dose: 40 mg Sodium Chloride () 5 - 15 ml IV UD PRN PRN Reason: SALINE FLUSH Thiamine HCl (Vitamin B1) 100 mg PO DAILYCM [facility] Last Admin: 07/16/18 09:41 Dose: 100 mg Tizanidine HCl (Zanaflex) 4 mg PO Q8H PRN PRN PRN Reason: SPASMS Trazodone HCl (Desyrel) 50 mg PO QHS [facility] Last Admin: 07/15/18 23:36 Dose: 50 mg Zolpidem Tartrate (Ambien (Generic)) 5 mg PO QHS [facility] Medical Necessity - Tobacco Use Smoking Status: Current every day smoker Assessment/Plan All Active Problems Multilobar lung infiltrate (Acute) Acute respiratory failure with hypoxia (Acute) Mediastinal lymphadenopathy (Acute) Bronchospasm (Acute) Sepsis (Acute) Acute respiratory failure with hypoxemia (Acute) Liver mass (Acute) Hyponatremia (Acute) Hypokalemia (Acute) 1. Acute alcohol withdrawal verified with patient that he desires to quit. emphasized that this voluntary and we are to help and he doesn't want it, then he can be discharged. on Librium taper, plus other medications to help with somatic complaints. 2. Acute hypoxic respiratory failure improved was tachypneic on presentation currently off oxygen 3. AECOPD stable continue prednisone and BDs 4. possible pneumococcal pneumonia continue augmentin 5. DVT proph: SCDs Code Visit Inpatient E&M: 13142 Subs Hosp L2
--- NOTE | 2018-07-16 12:49 | PN_ITS ---
Patient Problems: Active and Suspected Problems Acute respiratory failure with hypoxemia (Acute) Subjective: Breathing better. Visual hallucinations. Tremors. Abdominal cramps. Nausea. Vitals/I&O's: Vital Signs Temp Pulse Resp BP Pulse Ox 36.3 C L 96 18 140/87 H 94 07/16/18 09:30 07/16/18 11:00 07/16/18 11:00 07/16/18 09:30 07/16/18 09:30 Oxygen Flow Rate (L/min) 1 Oxygen Delivery Method Room Air Weight: 89.7 kg Body Mass Index (BMI) 28.3 Finger Stick Blood Glucose 103 Intake and Output for Last 24 Hours 07/14/18 07/15/18 07/16/18 23:59 23:59 23:59 Intake Total 200 / 200 Output Total 300 / 300 Balance -100 / -100 General: Alert, No apparent distress HEENT: Atraumatic, Normocephalic Oral: Moist Mucosa, No Gingival or Mucosal Lesions/ Ulcerations Neck: No Nodes, Thyroid Normal Size and Texture Lungs: Clear to auscultation, No rhonchi, No wheeze, Diminished Cardiovascular: Regular rate, Regular Rhythm, Normal S1, Normal S2, No murmurs Abdomen: Bowel Sounds Present, Soft, Non Tender, Non-Distended, No Hepato-splenomegaly Extremities: No edema, No Calf Tenderness Skin: No rashes, No breakdown Psych/Mental Status: Normal Affect, Appropriate Laboratory Results 07/15/18 19:50: WBC 8.9, RBC 4.51 L, Hgb 14.3, Hct 43.7, MCV 96.9 H, MCH 31.7, MCHC 32.7, RDW 13.6, RDW Differential 47.5 H, Plt Count 163, MPV 10.2, Neut % (Auto) Not Reportable, Absolute Neuts (auto) 4.9, Absolute Lymphs (auto) 1.78, Total Counted 100, Neutrophils % (Manual) 54, Band Neutrophils % 1, Lymphocytes % (Manual) 20, Monocytes % (Manual) 20 H, Eosinophils % (Manual) 1, Metamyelocytes % 1, Myelocytes % 3 H, Differential Comment SCANNED, Diff Path Review Reviewed, Platelet Estimate ADEQUATE 07/15/18 19:50: Sodium 132 L, Potassium 3.7, Chloride 100, Carbon Dioxide 22.0, Anion Gap 10, BUN 11, Creatinine 0.63 L, Estim Creat Clear Calc 135.60, Est GFR (MDRD) Af Amer 170, Est GFR (MDRD) Non-Af 141, BUN/Creatinine Ratio 17.4, Glucose 87, Calcium 8.5, Troponin I < 0.015 07/16/18 06:04: Specimen Type ART, Sample Site L Radial, pH 7.39, Bicarbonate Actual 24.5, POC Total CO2 26, Base Excess 0, O2 Saturation 87 L, ABG pCO2 40.3, ABG pO2 54 L, Prince Test POS, O2 Delivery Device Nasal Can, Liter Flow 1.0, Blood Gas Notified Whom HOSP 07/16/18 06:10: Sodium 135 L, Potassium 4.0, Chloride 102, Carbon Dioxide 25.0, Anion Gap 8, BUN 14, Creatinine 0.66 L, Estim Creat Clear Calc 133.65, Est GFR (MDRD) Af Amer 161, Est GFR (MDRD) Non-Af 133, BUN/Creatinine Ratio 21.1 H, Glucose 208 H, Calcium 8.6 07/16/18 06:10: WBC 5.5, RBC 4.48 L, Hgb 14.3, Hct 43.3, MCV 96.7 H, MCH 31.9, MCHC 33.0, RDW 13.5, RDW Differential 47.0 H, Plt Count 155, MPV 10.2, Neut % (Auto) Not Reportable, Absolute Neuts (auto) 4.5, Absolute Lymphs (auto) 0.88, Total Counted 100, Neutrophils % (Manual) 79 H, Band Neutrophils % 3, Lymphocytes % (Manual) 16 L, Monocytes % (Manual) 1, Metamyelocytes % 1, Diff Path Review Reviewed, Platelet Estimate ADEQUATE, RBC Morphology NORM C+C Current Medications Albuterol Sulfate (Ventolin Aerosols) 2.5 mg INHALATION Q2H PRN PRN PRN Reason: SHORTNESS OF BREATH Albuterol/Ipratropium (Duoneb) 3 ml INHALATION Q4H.RT [facility] Last Admin: 07/16/18 10:53 Dose: 3 ml Amlodipine Besylate (Norvasc) 10 mg PO DAILY [facility] Last Admin: 07/16/18 09:44 Dose: 10 mg Amoxicillin/Clavulanate Potassium (Augmentin Tablet) 875 mg PO BIDCM [facility] Last Admin: 07/16/18 09:39 Dose: 875 mg Bisacodyl (Dulcolax) 5 mg PO DAILY PRN PRN PRN Reason: Constipation Chlordiazepoxide (Librium) 50 mg PO Q6H [facility]; Taper Stop: 07/19/18 00:14 Last Admin: 07/16/18 09:39 Dose: 50 mg Clopidogrel Bisulfate (Plavix) 75 mg PO DAILY [facility] Last Admin: 07/16/18 09:41 Dose: 75 mg Dicyclomine HCl (Bentyl) 20 mg PO Q6H PRN PRN PRN Reason: abdominal discomfort [facility] ([facility]) [facility] Admin: 07/16/18 09:41 Dose: 1 mg Hydroxyzine Pamoate (Vistaril Pamoate Capsule) 50 mg PO Q6H PRN PRN PRN Reason: Mild Anxiety (score 1/3) Levetiracetam (Keppra Tablet) 1,000 mg PO BID [facility] Last Admin: 07/16/18 09:41 Dose: 1,000 mg Lorazepam (Ativan) 1 mg IV Q4H PRN PRN PRN Reason: Severe Anxiety Magnesium Hydroxide (Milk Of Magnesia) 30 ml PO DAILY PRN PRN PRN Reason: Constipation Meclizine HCl (Antivert) 12.5 mg PO BID PRN PRN PRN Reason: DIZZINESS Methocarbamol (Methocarbamol) 750 mg PO Q6H PRN PRN PRN Reason: Muscle Aches Last Admin: 07/16/18 06:45 Dose: 750 mg Multivitamins (Multivitamin) [facility] Last Admin: 07/16/18 09:41 Dose: 1 tablet Nicotine (Nicoderm Cq (Pbkc)) 21 mg TRANSDERM. DAILY [facility] Last Admin: 07/16/18 09:40 Dose: 21 mg Pantoprazole Sodium (Protonix) 40 mg PO DAILY [facility] Last Admin: 07/16/18 09:39 Dose: 40 mg Paroxetine HCl (Paxil) 10 mg PO DAILY [facility] Last Admin: 07/16/18 09:44 Dose: 10 mg Prednisone () [facility] Last Admin: 07/16/18 09:39 Dose: 40 mg Sodium Chloride () 5 - 15 ml IV UD PRN PRN Reason: SALINE FLUSH Thiamine HCl (Vitamin B1) 100 mg PO DAILYCM [facility] Last Admin: 07/16/18 09:41 Dose: 100 mg Tizanidine HCl (Zanaflex) 4 mg PO Q8H PRN PRN PRN Reason: SPASMS Trazodone HCl (Desyrel) 50 mg PO QHS [facility] Last Admin: 07/15/18 23:36 Dose: 50 mg Zolpidem Tartrate (Ambien (Generic)) 5 mg PO QHS [facility] Medical Necessity - Tobacco Use Smoking Status: Current every day smoker Assessment/Plan All Active Problems Multilobar lung infiltrate (Acute) Acute respiratory failure with hypoxia (Acute) Mediastinal lymphadenopathy (Acute) Bronchospasm (Acute) Sepsis (Acute) Acute respiratory failure with hypoxemia (Acute) Liver mass (Acute) Hyponatremia (Acute) Hypokalemia (Acute) 1. Acute alcohol withdrawal * verified with patient that he desires to quit. * emphasized that this voluntary and we are to help and he doesn't want it, then he can be discharged. * on Librium taper, plus other medications to help with somatic complaints. 2. Acute hypoxic respiratory failure * improved * was tachypneic on presentation * currently off oxygen 3. AECOPD * stable * continue prednisone and BDs 4. possible pneumococcal pneumonia * continue augmentin 5. DVT proph: SCDs Code Visit Inpatient E&M: 57240 Subs Hosp L2
[2018-07-16] MEDS: traZODone 50 MG Tablet PO (22:48)
[2018-07-16] MEDS: Zolpidem Tartrate 5 MG Tablet PO (22:51)
[2018-07-17] VITALS (10 sets, daily range): BP systolic 127–150; BP diastolic 74–100; PULSE 73–110; RESP 16–20; TEMP 36.4–36.9; O2SAT 93–99
[2018-07-17] MEDS: chlordiazePOXIDE 25 MG Capsule PO ×3 (00:10→15:37)
[2018-07-17] MEDS: Ipratropium/Albuterol Sulfate 3 ML AMPUL.NEB INHALATION ×4 (02:33→17:54)
[2018-07-17] MEDS: hydrOXYzine PAM 25 MG Capsule 50 MG PO (04:21)
[2018-07-17] MEDS: Methocarbamol 750 MG Tablet PO ×2 (04:21→14:04)
[2018-07-17] MEDS: Folic Acid 1 MG Tablet PO (08:48)
[2018-07-17] MEDS: Multivitamins,Therapeutic Tablet 1 TABLET PO (08:48)
[2018-07-17] MEDS: Amox/Clavulanate 875 MG Tablet PO ×2 (08:48→17:35)
[2018-07-17] MEDS: predniSONE 20 MG Tablet 40 MG PO (08:48)
[2018-07-17] MEDS: Thiamine Hydrochloride 100 MG Tablet PO (08:48)
--- NOTE | 2018-07-17 09:51 | CASEMGMT ---
Addendum entered by Tiffany Woods 07/17/18 15:19: Pt updated that [facility] should be calling to reschedule appointment. Pt states understanding, denied additional needs or concerns. Original Note: Social Work Note Pt is not discharging today. RUCHI placed a call to 24 hour treatment navigator line at [facility] and spoke with Gabbi. RUCHI updated Gabbi that pt is still at [facility] and will need his appointment rescheduled. Gabbi states she will relay the message to Luis Yarbrough who initially spoke with pt regarding treatment options. RUCHI asked Gabbi to relay the message to Luis to call pt to reschedule appointment. Gabbi states she will do so. Tiffany Woods SHIRT SORTER, BESSEMER REGULATOR
[2018-07-17] MEDS: PARoxetine 10 MG Tablet PO (10:12)
[2018-07-17] MEDS: amLODIPine 10 MG Tablet PO (10:12)
[2018-07-17] MEDS: Pantoprazole Sodium 40 MG Tablet PO (10:12)
[2018-07-17] MEDS: Clopidogrel Bisulfate 75 MG Tablet PO (10:12)
[2018-07-17] MEDS: levETIRAcetam 1,000 MG Tablet 1000 MG PO ×2 (10:12→21:05)
--- NOTE | 2018-07-17 11:56 | PCM.PN.HOSP ---
Patient Problems: Active and Suspected Problems Acute respiratory failure with hypoxemia (Acute) Subjective: Feeling better. Still short of breath. Continued hallucinations, tremors, nausea, sweats--but overall better. Vitals/I&O's: Vital Signs Temp Pulse Resp BP Pulse Ox 36.9 C 84 18 148/80 H 94 07/17/18 10:05 07/17/18 10:10 07/17/18 10:05 07/17/18 10:05 07/17/18 10:05 Oxygen Flow Rate (L/min) 1 Oxygen Delivery Method Room Air Weight: 89.7 kg Body Mass Index (BMI) 28.3 Finger Stick Blood Glucose 103 Intake and Output for Last 24 Hours 07/15/18 07/16/18 07/17/18 23:59 23:59 23:59 Intake Total 1000 / 1000 1670 / 1670 Output Total 300 / 300 Balance 700 / 700 1670 / 1670 General: Alert, No apparent distress HEENT: Atraumatic, Normocephalic Oral: Moist Mucosa, No Gingival or Mucosal Lesions/ Ulcerations Neck: No Nodes, Thyroid Normal Size and Texture Lungs: Normal air movement, Wheezes Cardiovascular: Regular rate, Regular Rhythm, Normal S1, Normal S2, No murmurs Abdomen: Bowel Sounds Present, Soft, Non Tender, Non-Distended, No Hepato-splenomegaly Extremities: No edema, No Calf Tenderness Skin: No rashes, No breakdown Psych/Mental Status: Normal Affect, Appropriate Current Medications Albuterol Sulfate (Ventolin Aerosols) 2.5 mg INHALATION Q2H PRN PRN PRN Reason: SHORTNESS OF BREATH Albuterol/Ipratropium (Duoneb) 3 ml INHALATION Q4H.RT [facility] Last Admin: 07/17/18 11:05 Dose: Not Given Amlodipine Besylate (Norvasc) 10 mg PO DAILY [facility] Last Admin: 07/17/18 10:12 Dose: 10 mg Amoxicillin/Clavulanate [facility] Admin: 07/17/18 08:48 Dose: 875 mg Bisacodyl (Dulcolax) 5 mg PO DAILY PRN PRN PRN Reason: Constipation Chlordiazepoxide (Librium) 50 mg PO Q8H [facility]; Taper Stop: 07/19/18 00:14 Last Admin: 07/17/18 08:48 Dose: 50 mg Clopidogrel Bisulfate (Plavix) 75 mg PO DAILY [facility] Last Admin: 07/17/18 10:12 Dose: 75 mg Dicyclomine HCl (Bentyl) 20 mg PO Q6H PRN PRN PRN Reason: abdominal discomfort Folic [facility] ([facility] Acid) [facility] Last Admin: 07/17/18 08:48 Dose: 1 mg Hydroxyzine Pamoate (Vistaril Pamoate Capsule) 50 mg PO Q6H PRN PRN PRN Reason: Mild Anxiety (score 1/3) Last Admin: 07/17/18 04:21 Dose: 50 mg Levetiracetam (Keppra Tablet) 1,000 mg PO BID [facility] Last Admin: 07/17/18 10:12 Dose: 1,000 mg Lorazepam (Ativan) 1 mg IV Q4H PRN PRN PRN Reason: Severe Anxiety Magnesium Hydroxide (Milk Of Magnesia) 30 ml PO DAILY PRN PRN PRN Reason: Constipation Meclizine HCl (Antivert) 12.5 mg PO BID PRN PRN PRN Reason: DIZZINESS Methocarbamol (Methocarbamol) 750 mg PO Q6H PRN PRN PRN Reason: Muscle Aches Last Admin: 07/17/18 04:21 Dose: 750 mg Multivitamins (Multivitamin) [facility] Last Admin: 07/17/18 08:48 Dose: 1 tablet Nicotine (Nicoderm Cq (Pbkc)) 21 mg TRANSDERM. DAILY [facility] Last Admin: 07/17/18 08:48 Dose: 21 mg Pantoprazole Sodium (Protonix) 40 mg PO DAILY [facility] Last Admin: 07/17/18 10:12 Dose: 40 mg Paroxetine HCl (Paxil) 10 mg PO DAILY [facility] Last Admin: 07/17/18 10:12 Dose: 10 mg Prednisone () [facility] Last Admin: 07/17/18 08:48 Dose: 40 mg Sodium Chloride () 5 - 15 ml IV UD PRN PRN Reason: SALINE FLUSH Thiamine HCl (Vitamin B1) [facility] Last Admin: 07/17/18 08:48 Dose: 100 mg Tizanidine HCl (Zanaflex) 4 mg PO Q8H PRN PRN PRN Reason: SPASMS Trazodone HCl (Desyrel) 50 mg PO QHS [facility] Last Admin: 07/16/18 22:48 Dose: 50 mg Zolpidem Tartrate (Ambien (Generic)) 5 mg PO QHS [facility] Last Admin: 07/16/18 22:51 Dose: 5 mg Medical Necessity - Tobacco Use Smoking Status: Current every day smoker Assessment/Plan All Active Problems Multilobar lung infiltrate (Acute) Acute respiratory failure with hypoxia (Acute) Mediastinal lymphadenopathy (Acute) Bronchospasm (Acute) Sepsis (Acute) Acute respiratory failure with hypoxemia (Acute) Liver mass (Acute) Hyponatremia (Acute) Hypokalemia (Acute) 1. Acute alcohol withdrawal CIWA 10 emphasized that this voluntary and we are to help and he doesn't want it, then he can be discharged. on Librium taper, plus other medications to help with somatic complaints. 2. Acute hypoxic respiratory failure improved was tachypneic on presentation currently off oxygen 3. AECOPD stable continue prednisone and BDs 4. possible pneumococcal pneumonia continue augmentin 5. DVT proph: SCDs 6. Disposition: eventually to home. Anticipate in next 24-48h. Code Visit Inpatient E&M: 66354 Subs Hosp L2
--- NOTE | 2018-07-17 11:59 | PN_ITS ---
Patient Problems: Active and Suspected Problems Acute respiratory failure with hypoxemia (Acute) Subjective: Feeling better. Still short of breath. Continued hallucinations, tremors, nausea, sweats--but overall better. Vitals/I&O's: Vital Signs Temp Pulse Resp BP Pulse Ox 36.9 C 84 18 148/80 H 94 07/17/18 10:05 07/17/18 10:10 07/17/18 10:05 07/17/18 10:05 07/17/18 10:05 Oxygen Flow Rate (L/min) 1 Oxygen Delivery Method Room Air Weight: 89.7 kg Body Mass Index (BMI) 28.3 Finger Stick Blood Glucose 103 Intake and Output for Last 24 Hours 07/15/18 07/16/18 07/17/18 23:59 23:59 23:59 Intake Total 1000 / 1000 1670 / 1670 Output Total 300 / 300 Balance 700 / 700 1670 / 1670 General: Alert, No apparent distress HEENT: Atraumatic, Normocephalic Oral: Moist Mucosa, No Gingival or Mucosal Lesions/ Ulcerations Neck: No Nodes, Thyroid Normal Size and Texture Lungs: Normal air movement, Wheezes Cardiovascular: Regular rate, Regular Rhythm, Normal S1, Normal S2, No murmurs Abdomen: Bowel Sounds Present, Soft, Non Tender, Non-Distended, No Hepato- splenomegaly Extremities: No edema, No Calf Tenderness Skin: No rashes, No breakdown Psych/Mental Status: Normal Affect, Appropriate Current Medications Albuterol Sulfate (Ventolin Aerosols) 2.5 mg INHALATION Q2H PRN PRN PRN Reason: SHORTNESS OF BREATH Albuterol/Ipratropium (Duoneb) 3 ml INHALATION Q4H.RT [facility] Last Admin: 07/17/18 11:05 Dose: Not Given Amlodipine Besylate (Norvasc) 10 mg PO DAILY [facility] Last Admin: 07/17/18 10:12 Dose: 10 mg Amoxicillin/Clavulanate Pot[facility] ([facility]in Tablet) [facility] Last Admin: 07/17/18 08:48 Dose: 875 mg Bisacodyl (Dulcolax) 5 mg PO DAILY PRN PRN PRN Reason: Constipation Chlordiazepoxide (Librium) 50 mg PO Q8H [facility]; Taper Stop: 07/19/18 00:14 Last Admin: 07/17/18 08:48 Dose: 50 mg Clopidogrel Bisulfate (Plavix) 75 mg PO DAILY [facility] Last Admin: 07/17/18 10:12 Dose: 75 mg Dicyclomine HCl (Bentyl) 20 mg PO Q6H PRN PRN PRN Reason: abdominal discomfort Folic Acid (Folic Acid) [facility] Last Admin: 07/17/18 08:48 Dose: 1 mg Hydroxyzine Pamoate (Vistaril Pamoate Capsule) 50 mg PO Q6H PRN PRN PRN Reason: Mild Anxiety (score 1/3) Last Admin: 07/17/18 04:21 Dose: 50 mg Levetiracetam (Keppra Tablet) 1,000 mg PO BID [facility] Last Admin: 07/17/18 10:12 Dose: 1,000 mg Lorazepam (Ativan) 1 mg IV Q4H PRN PRN PRN Reason: Severe Anxiety Magnesium Hydroxide (Milk Of Magnesia) 30 ml PO DAILY PRN PRN PRN Reason: Constipation Meclizine HCl (Antivert) 12.5 mg PO BID PRN PRN PRN Reason: DIZZINESS Methocarbamol (Methocarbamol) 750 mg PO Q6H PRN PRN PRN Reason: Muscle Aches Last Admin: 07/17/18 04:21 Dose: 750 mg Multivitamins (Multivitamin) [facility] Last Admin: 07/17/18 08:48 Dose: 1 tablet Nicotine (Nicoderm Cq (Pbkc)) 21 mg TRANSDERM. DAILY [facility] Last Admin: 07/17/18 08:48 Dose: 21 mg Pantoprazole Sodium (Protonix) 40 mg PO DAILY [facility] Last Admin: 07/17/18 10:12 Dose: 40 mg Paroxetine HCl (Paxil) 10 mg PO DAILY [facility] Last Admin: 07/17/18 10:12 Dose: 10 mg Prednisone () [facility] Last Admin: 07/17/18 08:48 Dose: 40 mg Sodium Chloride () 5 - 15 ml IV UD PRN PRN Reason: SALINE FLUSH Thiamine HCl (Vitamin B1) [facility] Last Admin: 07/17/18 08:48 Dose: 100 mg Tizanidine HCl (Zanaflex) 4 mg PO Q8H PRN PRN PRN Reason: SPASMS Trazodone HCl (Desyrel) 50 mg PO QHS [facility] Last Admin: 07/16/18 22:48 Dose: 50 mg Zolpidem Tartrate (Ambien (Generic)) 5 mg PO QHS [facility] Last Admin: 07/16/18 22:51 Dose: 5 mg Medical Necessity - Tobacco Use Smoking Status: Current every day smoker Assessment/Plan All Active Problems Multilobar lung infiltrate (Acute) Acute respiratory failure with hypoxia (Acute) Mediastinal lymphadenopathy (Acute) Bronchospasm (Acute) Sepsis (Acute) Acute respiratory failure with hypoxemia (Acute) Liver mass (Acute) Hyponatremia (Acute) Hypokalemia (Acute) 1. Acute alcohol withdrawal * CIWA 10 * emphasized that this voluntary and we are to help and he doesn't want it, then he can be discharged. * on Librium taper, plus other medications to help with somatic complaints. 2. Acute hypoxic respiratory failure * improved * was tachypneic on presentation * currently off oxygen 3. AECOPD * stable * continue prednisone and BDs 4. possible pneumococcal pneumonia * continue augmentin 5. DVT proph: SCDs 6. Disposition: eventually to home. Anticipate in next 24-48h. Code Visit Inpatient E&M: 98120 Subs Hosp L2
[2018-07-17] MEDS: Meclizine 12.5 MG Tablet PO (14:04)
[2018-07-17] MEDS: traZODone 50 MG Tablet PO (21:06)
[2018-07-17] MEDS: Zolpidem Tartrate 5 MG Tablet PO (21:06)
[2018-07-18] VITALS (12 sets, daily range): BP systolic 131–163; BP diastolic 70–88; PULSE 84–94; RESP 16–18; TEMP 36.5–37.1; O2SAT 92–98
[2018-07-18] MEDS: chlordiazePOXIDE 25 MG Capsule PO ×2 (00:05→12:23)
[2018-07-18] MEDS: Ipratropium/Albuterol Sulfate 3 ML AMPUL.NEB INHALATION ×5 (07:05→23:13)
[2018-07-18] MEDS: Amox/Clavulanate 875 MG Tablet PO ×2 (08:14→17:55)
[2018-07-18] MEDS: Multivitamins,Therapeutic Tablet 1 TABLET PO (08:14)
[2018-07-18] MEDS: Thiamine Hydrochloride 100 MG Tablet PO (08:14)
[2018-07-18] MEDS: Folic Acid 1 MG Tablet PO (08:15)
[2018-07-18] MEDS: predniSONE 20 MG Tablet 40 MG PO (08:15)
[2018-07-18] MEDS: Clopidogrel Bisulfate 75 MG Tablet PO (09:31)
[2018-07-18] MEDS: levETIRAcetam 1,000 MG Tablet 1000 MG PO ×2 (09:31→22:26)
[2018-07-18] MEDS: amLODIPine 10 MG Tablet PO (09:31)
[2018-07-18] MEDS: Pantoprazole Sodium 40 MG Tablet PO (09:31)
[2018-07-18] MEDS: PARoxetine 10 MG Tablet PO (09:32)
--- NOTE | 2018-07-18 09:48 | PCM.PN.HOSP ---
Patient Problems: Active and Suspected Problems Acute respiratory failure with hypoxemia (Acute) Acute hyperactive alcohol withdrawal delirium (Acute) Subjective: Feeling better. Headache improved. Hallucinations, less frequent and intense. Vitals/I&O's: Vital Signs Temp Pulse Resp BP Pulse Ox 36.8 C 90 18 163/88 H 93 07/18/18 05:29 07/18/18 07:05 07/18/18 07:05 07/18/18 05:29 07/18/18 07:05 Oxygen Flow Rate (L/min) 1 Oxygen Delivery Method Room Air Weight: 89.7 kg Body Mass Index (BMI) 28.3 Finger Stick Blood Glucose 103 Intake and Output for Last 24 Hours 07/16/18 07/17/18 07/18/18 23:59 23:59 23:59 Intake Total 1000 / 1000 2550 / 2550 1000 / 1000 Output Total 300 / 300 400 / 400 Balance 700 / 700 2150 / 2150 1000 / 1000 General: Alert, No apparent distress HEENT: Atraumatic, Normocephalic Oral: Moist Mucosa, No Gingival or Mucosal Lesions/ Ulcerations Neck: No Nodes, Thyroid Normal Size and Texture Lungs: Clear to auscultation, Normal air movement, No rhonchi, No wheeze Cardiovascular: Regular rate, Regular Rhythm, Normal S1, Normal S2, No murmurs Abdomen: Bowel Sounds Present, Soft, Non Tender, Non-Distended, No Hepato-splenomegaly Extremities: No edema, No Calf Tenderness Skin: No rashes, No breakdown Psych/Mental Status: Normal Affect, Appropriate Current Medications Albuterol Sulfate (Ventolin Aerosols) 2.5 mg INHALATION Q2H PRN PRN PRN Reason: SHORTNESS OF BREATH Albuterol/Ipratropium (Duoneb) 3 ml INHALATION Q4H.RT [facility] Last Admin: 07/18/18 07:05 Dose: 3 ml Amlodipine Besylate (Norvasc) 10 mg PO DAILY [facility] Last Admin: 07/18/18 09:31 Dose: 10 mg Amoxicillin/Clavulanate Potassium (Augmentin Tablet) 875 mg PO BIDCM [facility] Last Admin: 07/18/18 08:14 Dose: 875 mg Bisacodyl (Dulcolax) 5 mg PO DAILY PRN PRN PRN Reason: Constipation Chlordiazepoxide (Librium) 25 mg PO Q12H [facility]; Taper Stop: 07/19/18 00:14 Last Admin: 07/18/18 00:05 Dose: 25 mg Clopidogrel Bisulfate (Plavix) 75 mg PO DAILY [facility] Last Admin: 07/18/18 09:31 Dose: 75 mg Dicyclomine HCl (Bentyl) 20 mg PO Q6H PRN PRN PRN Reason: abdominal discomfort [facility] Admin: 07/18/18 08:15 Dose: 1 mg Hydroxyzine Pamoate (Vistaril Pamoate Capsule) 50 mg PO Q6H PRN PRN PRN Reason: Mild Anxiety (score 1/3) Last Admin: 07/17/18 04:21 Dose: 50 mg Levetiracetam (Keppra Tablet) 1,000 mg PO BID [facility] Last Admin: 07/18/18 09:31 Dose: 1,000 mg Lorazepam (Ativan) 1 mg IV Q4H PRN PRN PRN Reason: Severe Anxiety Magnesium Hydroxide (Milk Of Magnesia) 30 ml PO DAILY PRN PRN PRN Reason: Constipation Meclizine HCl (Antivert) 12.5 mg PO BID PRN PRN PRN Reason: DIZZINESS Last Admin: 07/17/18 14:04 Dose: 12.5 mg Methocarbamol (Methocarbamol) 750 mg PO Q6H PRN PRN PRN Reason: Muscle Aches Last Admin: 07/17/18 14:04 Dose: 750 mg [facility]it[facility]amin) [facility] Last Admin: 07/18/18 08:14 Dose: 1 tablet Nicotine (Nicoderm Cq (Pbkc)) 21 mg TRANSDERM. DAILY [facility] Last Admin: 07/18/18 07:24 Dose: 21 mg Pantoprazole Sodium (Protonix) 40 mg PO DAILY [facility] Last Admin: 07/18/18 09:31 Dose: 40 mg Paroxetine HCl (Paxil) 10 mg PO DAILY [facility] Last Admin: 07/18/18 09:32 Dose: 10 mg [facility] () [facility] Last Admin: 07/18/18 08:15 Dose: 40 mg Sodium Chloride () 5 - 15 ml IV UD PRN PRN Reason: SALINE FLUSH Thiamine HCl ([facility]itamin B1) [facility] Last Admin: 07/18/18 08:14 Dose: 100 mg Tizanidine HCl (Zanaflex) 4 mg PO Q8H PRN PRN PRN Reason: SPASMS Trazodone HCl (Desyrel) 50 mg PO QHS [facility] Last Admin: 07/17/18 21:06 Dose: 50 mg Zolpidem Tartrate (Ambien (Generic)) 5 mg PO QHS [facility] Last Admin: 07/17/18 21:06 Dose: 5 mg Medical Necessity - Tobacco Use Smoking Status: Current every day smoker Assessment/Plan All Active Problems Multilobar lung infiltrate (Acute) Acute respiratory failure with hypoxia (Acute) Mediastinal lymphadenopathy (Acute) Bronchospasm (Acute) Sepsis (Acute) Acute respiratory failure with hypoxemia (Acute) Acute hyperactive alcohol withdrawal delirium (Acute) Liver mass (Acute) Hyponatremia (Acute) Hypokalemia (Acute) 1. Acute alcohol withdrawal CIWA 11 emphasized that this voluntary and we are to help and he doesn't want it, then he can be discharged. on Librium taper, plus other medications to help with somatic complaints. anticipate that he will be ready for discharge 07/19. Patient aware. 2. Acute hypoxic respiratory failure improved was tachypneic on presentation currently off oxygen 3. AECOPD stable continue prednisone and BDs 4. possible pneumococcal pneumonia continue augmentin 5. DVT proph: SCDs 6. Disposition: eventually to home. Anticipate 07/19. Code Visit Inpatient E&M: 29706 Subs Hosp L2
--- NOTE | 2018-07-18 09:52 | PN_ITS ---
Patient Problems: Active and Suspected Problems Acute respiratory failure with hypoxemia (Acute) Acute hyperactive alcohol withdrawal delirium (Acute) Subjective: Feeling better. Headache improved. Hallucinations, less frequent and intense. Vitals/I&O's: Vital Signs Temp Pulse Resp BP Pulse Ox 36.8 C 90 18 163/88 H 93 07/18/18 05:29 07/18/18 07:05 07/18/18 07:05 07/18/18 05:29 07/18/18 07:05 Oxygen Flow Rate (L/min) 1 Oxygen Delivery Method Room Air Weight: 89.7 kg Body Mass Index (BMI) 28.3 Finger Stick Blood Glucose 103 Intake and Output for Last 24 Hours 07/16/18 07/17/18 07/18/18 23:59 23:59 23:59 Intake Total 1000 / 1000 2550 / 2550 1000 / 1000 Output Total 300 / 300 400 / 400 Balance 700 / 700 2150 / 2150 1000 / 1000 General: Alert, No apparent distress HEENT: Atraumatic, Normocephalic Oral: Moist Mucosa, No Gingival or Mucosal Lesions/ Ulcerations Neck: No Nodes, Thyroid Normal Size and Texture Lungs: Clear to auscultation, Normal air movement, No rhonchi, No wheeze Cardiovascular: Regular rate, Regular Rhythm, Normal S1, Normal S2, No murmurs Abdomen: Bowel Sounds Present, Soft, Non Tender, Non-Distended, No Hepato- splenomegaly Extremities: No edema, No Calf Tenderness Skin: No rashes, No breakdown Psych/Mental Status: Normal Affect, Appropriate Current Medications Albuterol Sulfate (Ventolin Aerosols) 2.5 mg INHALATION Q2H PRN PRN PRN Reason: SHORTNESS OF BREATH Albuterol/Ipratropium (Duoneb) 3 ml INHALATION Q4H.RT [facility]S [facility] Last Admin: 07/18/18 07:05 Dose: 3 ml Amlodipine Besylate (Norvasc) 10 mg PO DAILY [facility] Last Admin: 07/18/18 09:31 Dose: 10 mg Amoxicillin/Clavulanate Potassium (Augmentin Tablet) 875 mg PO BIDCM [facility]CLUDE 234 BEDS [facility] Last Admin: 07/18/18 08:14 Dose: 875 mg Bisacodyl (Dulcolax) 5 mg PO DAILY PRN PRN PRN Reason: Constipation Chlordiazepoxide (Librium) 25 mg PO Q12H [facility]; Taper Stop: 07/19/18 00:14 Last Admin: 07/18/18 00:05 Dose: 25 mg Clopidogrel Bisulfate (Plavix) 75 mg PO DAILY [facility] Last Admin: 07/18/18 09:31 Dose: 75 mg Dicyclomine HCl (Bentyl) 20 mg PO Q6H PRN PRN PRN Reason: abdominal discomfort [facility] Last Admin: 07/18/18 08:15 Dose: 1 mg Hydroxyzine Pamoate (Vistaril Pamoate Capsule) 50 mg PO Q6H PRN PRN PRN Reason: Mild Anxiety (score 1/3) Last Admin: 07/17/18 04:21 Dose: 50 mg Levetiracetam (Keppra Tablet) 1,000 mg PO BID [facility] Last Admin: 07/18/18 09:31 Dose: 1,000 mg Lorazepam (Ativan) 1 mg IV Q4H PRN PRN PRN Reason: Severe Anxiety Magnesium Hydroxide (Milk Of Magnesia) 30 ml PO DAILY PRN PRN PRN Reason: Constipation Meclizine HCl (Antivert) 12.5 mg PO BID PRN PRN PRN Reason: DIZZINESS Last Admin: 07/17/18 14:04 Dose: 12.5 mg Methocarbamol (Methocarbamol) 750 mg PO Q6H PRN PRN PRN Reason: Muscle Aches Last Admin: 07/17/18 14:04 Dose: 750 mg [facility]ivitamins ([facility]itamin) [facility] Last Admin: 07/18/18 08:14 Dose: 1 tablet Nicotine (Nicoderm Cq (Pbkc)) 21 mg TRANSDERM. DAILY [facility] Last Admin: 07/18/18 07:24 Dose: 21 mg Pantoprazole Sodium (Protonix) 40 mg PO DAILY [facility] Last Admin: 07/18/18 09:31 Dose: 40 mg Paroxetine HCl (Paxil) 10 mg PO DAILY [facility] Last Admin: 07/18/18 09:32 Dose: 10 mg [facility] () [facility] Last Admin: 07/18/18 08:15 Dose: 40 mg Sodium Chloride () 5 - 15 ml IV UD PRN PRN Reason: SALINE FLUSH Thiamine HCl (Vitamin B1) [facility] Last Admin: 07/18/18 08:14 Dose: 100 mg Tizanidine HCl (Zanaflex) 4 mg PO Q8H PRN PRN PRN Reason: SPASMS Trazodone HCl (Desyrel) 50 mg PO QHS [facility] Last Admin: 07/17/18 21:06 Dose: 50 mg Zolpidem Tartrate (Ambien (Generic)) 5 mg PO QHS [facility] Last Admin: 07/17/18 21:06 Dose: 5 mg Medical Necessity - Tobacco Use Smoking Status: Current every day smoker Assessment/Plan All Active Problems Multilobar lung infiltrate (Acute) Acute respiratory failure with hypoxia (Acute) Mediastinal lymphadenopathy (Acute) Bronchospasm (Acute) Sepsis (Acute) Acute respiratory failure with hypoxemia (Acute) Acute hyperactive alcohol withdrawal delirium (Acute) Liver mass (Acute) Hyponatremia (Acute) Hypokalemia (Acute) 1. Acute alcohol withdrawal * CIWA 11 * emphasized that this voluntary and we are to help and he doesn't want it, then he can be discharged. * on Librium taper, plus other medications to help with somatic complaints. * anticipate that he will be ready for discharge 07/19. Patient aware. 2. Acute hypoxic respiratory failure * improved * was tachypneic on presentation * currently off oxygen 3. AECOPD * stable * continue prednisone and BDs 4. possible pneumococcal pneumonia * continue augmentin 5. DVT proph: SCDs 6. Disposition: eventually to home. Anticipate 07/19. Code Visit Inpatient E&M: 55040 Subs Hosp L2
[2018-07-18] MEDS: NYSTATIN 500,000 UNIT/5 ML UDC 500000 UNIT PO ×3 (14:52→22:26)
--- NOTE | 2018-07-18 15:16 | CM.UR ---
Was contacted by [facility] charge nurse. States that a family member called in asking what the discharge plan was. She states she see [facility] but the patient is homeless. States that is why he went on the garcía because he was living with a mook and that gentleman so now he has no where to live. Explained I'm not sure we were aware he was homeless and asked that he let me check into a few things. Shalom Mendez RN, CCM.
[2018-07-18] MEDS: Zolpidem Tartrate 5 MG Tablet PO (22:26)
[2018-07-18] MEDS: traZODone 50 MG Tablet PO (22:26)
[2018-07-19] VITALS (12 sets, daily range): BP systolic 114–153; BP diastolic 70–89; PULSE 74–101; RESP 16–20; TEMP 36.3–37.2; O2SAT 93–98
[2018-07-19] MEDS: tiZANidine HCl 2 MG Tablet 4 MG PO (00:03)
[2018-07-19] MEDS: 0.9% NaCl Peripheral Flush Adult/Peds IV (00:04)
[2018-07-19] MEDS: Ipratropium/Albuterol Sulfate 3 ML AMPUL.NEB INHALATION ×5 (07:26→23:27)
[2018-07-19] MEDS: Amox/Clavulanate 875 MG Tablet PO ×2 (07:55→17:27)
[2018-07-19] MEDS: predniSONE 20 MG Tablet 40 MG PO (07:55)
[2018-07-19] MEDS: Thiamine Hydrochloride 100 MG Tablet PO (07:56)
[2018-07-19] MEDS: Folic Acid 1 MG Tablet PO (07:56)
[2018-07-19] MEDS: Multivitamins,Therapeutic Tablet 1 TABLET PO (07:56)
[2018-07-19] MEDS: Bisacodyl 5 MG Tablet PO (07:57)
--- NOTE | 2018-07-19 08:13 | PCM.PN.HOSP ---
Patient Problems: Active and Suspected Problems Acute respiratory failure with hypoxemia (Acute) Subjective: no new events. breathing well. Vitals/I&O's: Vital Signs Temp Pulse Resp BP Pulse Ox 36.5 C L 81 18 153/86 H 93 07/19/18 02:40 07/19/18 02:40 07/19/18 02:40 07/19/18 02:40 07/19/18 02:40 Oxygen Flow Rate (L/min) 1 Oxygen Delivery Method Room Air Weight: 89.7 kg Body Mass Index (BMI) 28.3 Finger Stick Blood Glucose 103 Intake and Output for Last 24 Hours 07/17/18 07/18/18 07/19/18 23:59 23:59 23:59 Intake Total 2550 / 2550 3400 / 3400 440 / 440 Output Total 400 / 400 950 / 950 1300 / 1300 Balance 2150 / 2150 2450 / 2450 -860 / -860 General: Alert, No apparent distress, - - arms supporting him up in his bed were tremulous. HEENT: Atraumatic, Normocephalic Neck: No Nodes, Thyroid Normal Size and Texture Lungs: Clear to auscultation, Normal air movement, No rhonchi, No wheeze Cardiovascular: Regular rate, Regular Rhythm, Normal S1, Normal S2, No murmurs Abdomen: Bowel Sounds Present, Soft, Non Tender, Non-Distended, No Hepato-splenomegaly Extremities: No edema, No Calf Tenderness Psych/Mental Status: Normal Affect, Appropriate Current Medications Albuterol Sulfate (Ventolin Aerosols) 2.5 mg INHALATION Q2H PRN PRN PRN Reason: SHORTNESS OF BREATH Albuterol/Ipratropium (Duoneb) 3 ml INHALATION Q4H.RT [facility] Last Admin: 07/19/18 07:26 Dose: 3 ml Amlodipine Besylate (Norvasc) 10 mg PO DAILY [facility] Last Admin: 07/18/18 09:31 Dose: 10 mg Amoxicillin/Clavulanate Pot[facility] ([facility] Last Admin: 07/19/18 07:55 Dose: 875 mg Bisacodyl (Dulcolax) 5 mg PO DAILY PRN PRN PRN Reason: Constipation Last Admin: 07/19/18 07:57 Dose: 5 mg Clopidogrel Bisulfate (Plavix) 75 mg PO DAILY [facility] Last Admin: 07/18/18 09:31 Dose: 75 mg Dicyclomine HCl (Bentyl) 20 mg PO Q6H PRN PRN PRN Reason: abdominal discomfort Folic [facility] (Folic Acid) [facility] Last Admin: 07/19/18 07:56 Dose: 1 mg Hydroxyzine Pamoate (Vistaril Pamoate Capsule) 50 mg PO Q6H PRN PRN PRN Reason: Mild Anxiety (score 1/3) Last Admin: 07/17/18 04:21 Dose: 50 mg Levetiracetam (Keppra Tablet) 1,000 mg PO BID [facility] Last Admin: 07/18/18 22:26 Dose: 1,000 mg Lorazepam (Ativan) 1 mg IV Q4H PRN PRN PRN Reason: Severe Anxiety Magnesium Hydroxide (Milk Of Magnesia) 30 ml PO DAILY PRN PRN PRN Reason: Constipation Meclizine HCl (Antivert) 12.5 mg PO BID PRN PRN PRN Reason: DIZZINESS Last Admin: 07/17/18 14:04 Dose: 12.5 mg Methocarbamol (Methocarbamol) 750 mg PO Q6H PRN PRN PRN Reason: Muscle Aches Last Admin: 07/17/18 14:04 Dose: 750 mg [facility]ivitamins ([facility]itamin) [facility] Last Admin: 07/19/18 07:56 Dose: 1 tablet Nicotine (Nicoderm Cq (Pbkc)) 21 mg TRANSDERM. DAILY [facility] Last Admin: 07/18/18 07:24 Dose: 21 mg Nystatin (Nystatin) 500,000 unit PO 4X/DAY [facility] Last Admin: 07/18/18 22:26 Dose: 500,000 unit Pantoprazole Sodium (Protonix) 40 mg PO DAILY [facility] Last Admin: 07/18/18 09:31 Dose: 40 mg Paroxetine HCl (Paxil) 10 mg PO DAILY [facility] Last Admin: 07/18/18 09:32 Dose: 10 mg Prednisone () [facility] Last Admin: 07/19/18 07:55 Dose: 40 mg Sodium Chloride () 5 - 15 ml IV UD PRN PRN Reason: SALINE FLUSH Last Admin: 07/19/18 00:04 Dose: 10 ml Thiamine HCl (Vitamin B1) [facility] Last Admin: 07/19/18 07:56 Dose: 100 mg Tizanidine HCl (Zanaflex) 4 mg PO Q8H PRN PRN PRN Reason: SPASMS Last Admin: 07/19/18 00:03 Dose: 4 mg Trazodone HCl (Desyrel) 50 mg PO QHS [facility] Last Admin: 07/18/18 22:26 Dose: 50 mg Zolpidem Tartrate (Ambien (Generic)) 5 mg PO QHS [facility] Last Admin: 07/18/18 22:26 Dose: 5 mg Medical Necessity - Tobacco Use Smoking Status: Current every day smoker Assessment/Plan All Active Problems Acute hyperactive alcohol withdrawal delirium (Acute) Multilobar lung infiltrate (Acute) Acute respiratory failure with hypoxia (Acute) Mediastinal lymphadenopathy (Acute) Bronchospasm (Acute) Sepsis (Acute) Acute respiratory failure with hypoxemia (Acute) Liver mass (Acute) Hyponatremia (Acute) Hypokalemia (Acute) 1. Acute alcohol withdrawal resolved completed librium taper. DC lorazepam. continue thiamine and folate. 2. Acute hypoxic respiratory failure improved was tachypneic on presentation currently off oxygen 3. AECOPD stable continue prednisone and BDs completed 4/5 days of prednisone. 4. possible pneumococcal pneumonia continue augmentin through the . 5. DVT proph: SCDs 6. Disposition: patient is currently homeless. medically stable for discharge today, but I do not have a facility/house to discharge him to right now. await further input by CM. pt will likely remain here until at least 07/20 Code Visit Inpatient E&M: 39768 Subs Hosp L2
--- NOTE | 2018-07-19 08:18 | PN_ITS ---
Patient Problems: Active and Suspected Problems Acute respiratory failure with hypoxemia (Acute) Subjective: no new events. breathing well. Vitals/I&O's: Vital Signs Temp Pulse Resp BP Pulse Ox 36.5 C L 81 18 153/86 H 93 07/19/18 02:40 07/19/18 02:40 07/19/18 02:40 07/19/18 02:40 07/19/18 02:40 Oxygen Flow Rate (L/min) 1 Oxygen Delivery Method Room Air Weight: 89.7 kg Body Mass Index (BMI) 28.3 Finger Stick Blood Glucose 103 Intake and Output for Last 24 Hours 07/17/18 07/18/18 07/19/18 23:59 23:59 23:59 Intake Total 2550 / 2550 3400 / 3400 440 / 440 Output Total 400 / 400 950 / 950 1300 / 1300 Balance 2150 / 2150 2450 / 2450 -860 / -860 General: Alert, No apparent distress, - - arms supporting him up in his bed were tremulous. HEENT: Atraumatic, Normocephalic Neck: No Nodes, Thyroid Normal Size and Texture Lungs: Clear to auscultation, Normal air movement, No rhonchi, No wheeze Cardiovascular: Regular rate, Regular Rhythm, Normal S1, Normal S2, No murmurs Abdomen: Bowel Sounds Present, Soft, Non Tender, Non-Distended, No Hepato- splenomegaly Extremities: No edema, No Calf Tenderness Psych/Mental Status: Normal Affect, Appropriate Current Medications Albuterol Sulfate (Ventolin Aerosols) 2.5 mg INHALATION Q2H PRN PRN PRN Reason: SHORTNESS OF BREATH Albuterol/Ipratropium (Duoneb) 3 ml INHALATION Q4H.RT [facility] Last Admin: 07/19/18 07:26 Dose: 3 ml Amlodipine Besylate (Norvasc) 10 mg PO DAILY [facility] Last Admin: 07/18/18 09:31 Dose: 10 mg Amoxicillin/Clavulanate Potassium ([facility] Admin: 07/19/18 07:55 Dose: 875 mg Bisacodyl (Dulcolax) 5 mg PO DAILY PRN PRN PRN Reason: Constipation Last Admin: 07/19/18 07:57 Dose: 5 mg Clopidogrel Bisulfate (Plavix) 75 mg PO DAILY [facility] Last Admin: 07/18/18 09:31 Dose: 75 mg Dicyclomine HCl (Bentyl) 20 mg PO Q6H PRN PRN PRN Reason: abdominal discomfort Folic Acid (Folic Acid) [facility] Last Admin: 07/19/18 07:56 Dose: 1 mg Hydroxyzine Pamoate (Vistaril Pamoate Capsule) 50 mg PO Q6H PRN PRN PRN Reason: Mild Anxiety (score 1/3) Last Admin: 07/17/18 04:21 Dose: 50 mg Levetiracetam (Keppra Tablet) 1,000 mg PO BID [facility] Last Admin: 07/18/18 22:26 Dose: 1,000 mg Lorazepam (Ativan) 1 mg IV Q4H PRN PRN PRN Reason: Severe Anxiety Magnesium Hydroxide (Milk Of Magnesia) 30 ml PO DAILY PRN PRN PRN Reason: Constipation Meclizine HCl (Antivert) 12.5 mg PO BID PRN PRN PRN Reason: DIZZINESS Last Admin: 07/17/18 14:04 Dose: 12.5 mg Methocarbamol (Methocarbamol) 750 mg PO Q6H PRN PRN PRN Reason: Muscle Aches Last Admin: 07/17/18 14:04 Dose: 750 mg Multivitamins (Multivitamin) [facility] Last Admin: 07/19/18 07:56 Dose: 1 tablet Nicotine (Nicoderm Cq (Pbkc)) 21 mg TRANSDERM. DAILY [facility] Last Admin: 07/18/18 07:24 Dose: 21 mg Nystatin (Nystatin) 500,000 unit PO 4X/DAY [facility] Last Admin: 07/18/18 22:26 Dose: 500,000 unit Pantoprazole Sodium (Protonix) 40 mg PO DAILY [facility] Last Admin: 07/18/18 09:31 Dose: 40 mg Paroxetine HCl (Paxil) 10 mg PO DAILY [facility] Last Admin: 07/18/18 09:32 Dose: 10 mg Prednisone () [facility] Last Admin: 07/19/18 07:55 Dose: 40 mg Sodium Chloride () 5 - 15 ml IV UD PRN PRN Reason: SALINE FLUSH Last Admin: 07/19/18 00:04 Dose: 10 ml Thiamine HCl (Vitamin B1) [facility] Last Admin: 07/19/18 07:56 Dose: 100 mg Tizanidine HCl (Zanaflex) 4 mg PO Q8H PRN PRN PRN Reason: SPASMS Last Admin: 07/19/18 00:03 Dose: 4 mg Trazodone HCl (Desyrel) 50 mg PO QHS [facility] Last Admin: 07/18/18 22:26 Dose: 50 mg Zolpidem Tartrate (Ambien (Generic)) 5 mg PO QHS [facility] Last Admin: 07/18/18 22:26 Dose: 5 mg Medical Necessity - Tobacco Use Smoking Status: Current every day smoker Assessment/Plan All Active Problems Acute hyperactive alcohol withdrawal delirium (Acute) Multilobar lung infiltrate (Acute) Acute respiratory failure with hypoxia (Acute) Mediastinal lymphadenopathy (Acute) Bronchospasm (Acute) Sepsis (Acute) Acute respiratory failure with hypoxemia (Acute) Liver mass (Acute) Hyponatremia (Acute) Hypokalemia (Acute) 1. Acute alcohol withdrawal * resolved * completed librium taper. DC lorazepam. * continue thiamine and folate. 2. Acute hypoxic respiratory failure * improved * was tachypneic on presentation * currently off oxygen 3. AECOPD * stable * continue prednisone and BDs * completed 4/5 days of prednisone. 4. possible pneumococcal pneumonia * continue augmentin through the . 5. DVT proph: SCDs 6. Disposition: * patient is currently homeless. * medically stable for discharge today, but I do not have a facility/house to discharge him to right now. * await further input by CM. * pt will likely remain here until at least 07/20 Code Visit Inpatient E&M: [id number] Subs Hosp L2
[2018-07-19] MEDS: Clopidogrel Bisulfate 75 MG Tablet PO (10:27)
[2018-07-19] MEDS: Pantoprazole Sodium 40 MG Tablet PO (10:27)
[2018-07-19] MEDS: levETIRAcetam 1,000 MG Tablet 1000 MG PO ×2 (10:27→21:54)
[2018-07-19] MEDS: PARoxetine 10 MG Tablet PO (10:28)
[2018-07-19] MEDS: NYSTATIN 500,000 UNIT/5 ML UDC 500000 UNIT PO ×4 (10:28→21:55)
[2018-07-19] MEDS: amLODIPine 10 MG Tablet PO (10:29)
[2018-07-19] MEDS: Methocarbamol 750 MG Tablet PO (20:40)
[2018-07-20] VITALS (8 sets, daily range): BP systolic 136–142; BP diastolic 81–85; PULSE 86–102; RESP 16–20; TEMP 36.8–37.1; O2SAT 93–98
[2018-07-20] MEDS: Zolpidem Tartrate 5 MG Tablet PO (00:37)
[2018-07-20] MEDS: traZODone 50 MG Tablet PO (00:37)
[2018-07-20] MEDS: Ipratropium/Albuterol Sulfate 3 ML AMPUL.NEB INHALATION ×3 (03:10→10:22)
[2018-07-20] MEDS: Multivitamins,Therapeutic Tablet 1 TABLET PO (07:46)
[2018-07-20] MEDS: Thiamine Hydrochloride 100 MG Tablet PO (07:46)
[2018-07-20] MEDS: Folic Acid 1 MG Tablet PO (07:46)
[2018-07-20] MEDS: Amox/Clavulanate 875 MG Tablet PO (07:46)
[2018-07-20] MEDS: predniSONE 20 MG Tablet 40 MG PO (07:46)
[2018-07-20] MEDS: Pantoprazole Sodium 40 MG Tablet PO (09:29)
[2018-07-20] MEDS: NYSTATIN 500,000 UNIT/5 ML UDC 500000 UNIT PO (09:29)
[2018-07-20] MEDS: Clopidogrel Bisulfate 75 MG Tablet PO (09:29)
[2018-07-20] MEDS: levETIRAcetam 1,000 MG Tablet 1000 MG PO (09:29)
[2018-07-20] MEDS: PARoxetine 10 MG Tablet PO (09:29)
[2018-07-20] MEDS: amLODIPine 10 MG Tablet PO (09:29)
--- NOTE | 2018-07-20 09:56 | DCINST_ITS ---
- Discharge Diagnoses Current Active Problems: Current Active and Chronic Problems Acute respiratory failure with hypoxemia (Acute) You will use the following diet at home:: Cardiac Your food should be the consistency of: Regular Discharge Activity: Return to Normal Activity Call your doctor if you observe: Fever of 101 or Higher, Shortness of breath Allergies/Adverse Reactions: Allergies ANTIBIOTIC OINTMENT Adverse Reaction (Uncoded 07/10/18 18:06) Hives Medications to take at Discharge Amlodipine/Benazepril [Lotrel 10-20 MG Capsule] 1 capsule PO DAILY #30 capsule 08/27/16 Omeprazole [Prilosec] 40 mg PO DAILY #30 capsule 08/27/16 Paroxetine [Paxil] 20 mg PO DAILY #30 tablet 08/27/16 Tizanidine HCl [Zanaflex] 4 mg PO Q8H PRN PRN #30 tablet 08/27/16 levETIRAcetam tablet [Keppra tablet] 1,000 mg PO BID #60 tablet 08/27/16 Meclizine HCl [Antivert] 12.5 mg PO BID PRN PRN 09/07/16 Albuterol Inhaler [Ventolin Hfa] 2 puff INHALATION Q6H PRN PRN 12/10/16 Citalopram Hydrobromide [Citalopram HBr] 20 mg PO DAILY 02/07/17 Multivitamin [Multiple Vitamins] 1 each PO DAILY 02/07/17 Clopidogrel Bisulfate [Plavix] 75 mg PO DAILY #30 tablet 02/13/17 traZODone [Desyrel] 50 mg PO QHS 07/11/18 Multivitamins,Therapeutic [Multivitamin] 1 tablet PO DAILYCM tablet 07/20/18 Nystatin 500,000 unit PO 4X/DAY #20 udc 07/20/18 The following prescriptions were given: Nystatin 500,000 unit PO 4X/DAY #20 udc Primary Care Physician: Stuart Bacon MD [Primary Care Provider] - Within 2 Weeks Test Results: Test results from this visit will be discussed in further detail at your follow- up appointment, if applicable. Please Follow Up With: VERONIKA When: 1 week Proposed Discharge Date: 07/20/18
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
--- NOTE | 2018-07-20 10:35 | CASEMGMT ---
Social Work Note RUCHI reviewed notes from the weekend, it appears pt is homeless. SW met with pt to confirm discharge plans. SW asked pt about having a place to go. Pt states that he was living with his friend Kelsy and her who pt states was his best friend. Pt states that Kelsy's has though. Pt states that he plans on returning to [facility] at discharge as he has no other place to go. SW asked pt about any other family and friends allowing pt to move in with him, pt denied. Pt confirms that he will be returning to [facility] at discharge and following up with Vinod. SW did provide pt with additional resources including [employer] [facility], Homeless shelters, [address] [employer] and food pantry resources in the event pt needs resources. RN updated. Plan: Pt to return to his friend's Kelsy place at discharge and follow up with Vinod. Pt was provided housing resources in the event he needs housing assistance. Tiffany Woods CUSTOMER SERVICE OFFICER, CLINICAL APPEALS REVIEWER
--- NOTE | 2018-07-20 11:45 | CASEMGMT ---
Social Work Note Pt's aunt requesting to speak to this worker regarding discharge plans. SW met with pt's aunt Anita and pt in room. Anita states that pt can't return to Kelsy's house and will need a new place to stay. RUCHI informed Anita that pt has been alert and orientated and is able to take care of himself and was under the impression that he was going to be able to return to Kelsy's home at discharge. Anita states that pt has a brain injury and doesn't remember things. SW informed Anita that this worker provided pt with Homeless shelters, [facility] resources, Housing assistance programs, [facility] and [place] [id number] resources. Anita asked this worker about SNF. SW explained that pt doesn't meet criteria for SNF and that pt can go to SNF but that it would be private pay. SW explained that it would be difficult to find SNF for pt anyway due to his chronic substance abuse. Anita states that pt can't go to Homeless shelters due to there being a court order stating pt can go to Homeless shelters. SW informed Anita that pt is able to take care of himself and that family needs to figure out plan with pt in regards to housing. SW encouraged Anita and pt to go to [facility] and ask about resources for pt. SW explained that [facility] will likely have more resources and more availability to assist pt with treatment and housing resources. RUCHI again reiterated to Anita that [facility] has already been in contact with pt to arrange initial appointment and it would be beneficial if pt follows up with [facility] once he discharges from [facility]. SW offered emotional support to Anita throughout conversation and pt remained silent throughout conversation. Anita requesting to speak to RN regarding medications. SW updated RN. Tiffany Woods MANAGER SWITCH, DIGITAL DESIGNER
--- NOTE | 2018-07-21 13:23 | CASEMGMT ---
PETRA JAY Discharge Follow-Up Phone Call. [place]: 14 [place]: 4 Discharge Date: 07/20/18 Adm Dx: Acute Hypoxemic and possibly Hypercapnic Resp Failure. Attempted to contact pt for discharge follow-up phone call. Call placed to phone number listed in demographics. Pt's aunt, Anita, answered and states this number is hers and that pt does not have his own phone and she is the customer contact sales associate for him. She states she talked to Vincent yesterday and that he informed her that his sister, Nita, set up an appt with for him to got to [facility] today and that he was planning to go. Anita states she has not been able to reach neither him nor Nita today and so she is not sure how he is doing. She states she does not have any other contact number for him. Behzad NAVARRO RN, CM
== END 2018-07-20 11:54 | disposition home or self-care (01) | DRG 133 ==
LOC: ED 19:52 → MS3 21:47
PROVIDERS: Admitting Provider Hospitalist; Emergency Provider Emergency Medicine; Family Provider Family Medicine; PCP Family Medicine; Referring Provider Hospitalist
DX: J96.01 Acute respiratory failure with hypoxia (principal); F10.239 Alcohol dependence with withdrawal, unspecified; J44.1 Chronic obstructive pulmonary disease with (acute) exacerbation; I73.9 Peripheral vascular disease, unspecified; E78.5 Hyperlipidemia, unspecified; I10 Essential (primary) hypertension; F17.200 Nicotine dependence, unspecified, uncomplicated; R56.1 Post traumatic seizures; E87.1 Hypo-osmolality and hyponatremia; F10.229 Alcohol dependence with intoxication, unspecified; Z59.0 Homelessness; Z79.899 Other long term (current) drug therapy; Z79.02 Long term (current) use of antithrombotics/antiplatelets; Z86.718 Personal history of other venous thrombosis and embolism; F32.9 Major depressive disorder, single episode, unspecified; F41.9 Anxiety disorder, unspecified; G89.29 Other chronic pain; K21.9 Gastro-esophageal reflux disease without esophagitis
CPT/HCPCS: 36415; 36600; 71045; 80048; 82803; 84484; 85025; 93005; 94640; 94667; 94668; 96374; 97110; 97116; 97162; 97165; 97530; 97802; 99218; 99285; 99406; A4216; G0378

== ENCOUNTER → 2018-08-13 11:01 | Outpatient (CLI) | payer MEDICAID, SELFPAY ==
[2018-07-15 22:02] VITALS: BMI 28.3
--- NOTE | 2018-08-13 11:04 | ART_ITS ---
Reason For Study: claudication Left Segmental Pressures Left brachial= 155mmHg. Left dorsalis pedis artery = 92mmHg. Left posterior tibial artery = 102mmHg. Left calf = 89mmHg. Left thigh = 104mmHg. Right Segmental Pressures Right brachial= 144mmHg. Right posterior tibial artery = 153mmHg. Right dorsalis pedis artery = 147mmHg. The right dorsalis pedis waveforms are triphasic. The right posterior tibial artery waveforms are triphasic. Right calf = 151mmHg. Right thigh = 167mmHg. Indices The right ankle brachial index by the dorsalis pedis is .95. The right ankle brachial index by the posterior tibial artery is .99. The left ankle brachial index by the dorsalis pedis is .59. The left ankle brachial index by the posterior tibial artery is .66. Interpretation Summary Abnormal right lower extremity ankle brachial indices with triphasic waveforms consistent with mild occlusive disease. Abnormal left lower extremity ankle brachial indices well within the range of vascular claudication. 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 Digital waveforms on the left are flattened suggesting multisegmental disease. Ordering Physician: Jamal Garvin Performed By: JOHN JUAREZ [facility]
== END ==
PROVIDERS: Family Provider Family Medicine; PCP Family Medicine; Referring Provider Surgery; Visit Provider Surgery
DX: I73.9 Peripheral vascular disease, unspecified (principal)
CPT/HCPCS: 93923

== ENCOUNTER → 2018-08-14 14:35 | Outpatient (CLI) | payer MEDICAID, SELFPAY ==
[2018-08-14 13:54] VITALS: BMI 29.9
[2018-08-14 14:07] VITALS: BMI 28.3
--- NOTE | 2018-08-14 14:38 | VDLE_ITS ---
Reason For Study: RLE pain RIGHT LEFT GSV is normal. CFV is compressible, spontaneous, phasic, CFV is compressible, spontaneous, phasic, competent, and demonstrates normal competent and demonstrates normal augmentation. augmentation. FV is compressible, spontaneous, phasic, competent and demonstrates normal augmentation. POP V is compressible, spontaneous, phasic, competent and demonstrates normal augmentation. T/P Trunk is compressible. PTV is compressible. RT PerV is compressible. Procedure Exam performed in department. The exam was diagnostic. A preliminary report was called and/or faxed to Dr. Garvin. Interpretation Summary There is no evidence of right lower extremity deep vein thrombosis. Right greater saphenous vein appears patent and compressible segmentally. Normal flow patterns left common femoral vein. Ordering Physician: Jamal Garvin Referring Physician: Stuart Bacon Performed By: Nicki Gray, NORMA, RVT
== END ==
PROVIDERS: Family Provider Family Medicine; PCP Family Medicine; Referring Provider Surgery; Visit Provider Surgery
DX: M79.89 Other specified soft tissue disorders (principal); M79.604 Pain in right leg
CPT/HCPCS: 93971

== ENCOUNTER → 2018-08-21 13:26 | Outpatient (CLI) | payer MEDICAID, SELFPAY ==
[2018-08-14 14:07] VITALS: BMI 28.3
--- NOTE | 2018-08-21 13:29 | CDU_ITS ---
Reason For Study: Carotid Stenosis Rt. Velocities/BP Lt. Velocities/BP Prox CCA 83/19 cm/sec. Prox CCA 116/14 cm/sec. Mid CCA 103/19 cm/sec. Mid CCA 108/18 cm/sec. Dist CCA 103/28 cm/sec. Dist CCA 90/19 cm/sec. Prox ICA 63/20 cm/sec. Prox ICA 81/27 cm/sec. Mid ICA 78/27 cm/sec. Mid ICA 439/115 cm/sec. Dist ICA 116/30 cm/sec. Dist ICA 227/51 cm/sec. Rt. ICA/CCA = 1.1. Lt. ICA/CCA = 4.06. Prox ECA 125/25 cm/sec. Prox ECA 109/18 cm/sec. Rt. Vert. 79/25 cm/sec. Lt. Vert. 16/0 cm/sec. Right Extracranial There is homogeneous, smooth atherosclerotic plaque noted in the right common carotid artery. There is heterogeneous, irregular atherosclerotic plaque noted in the right internal carotid artery. There is heterogeneous, irregular atherosclerotic plaque noted in the right external carotid artery. Antegrade flow is noted in the right vertebral artery. Left Extracranial There is homogeneous, smooth atherosclerotic plaque noted in the left common carotid artery. There is heterogeneous, irregular atherosclerotic plaque noted in the left internal carotid artery. There is intimal thickening but no significant atherosclerotic plaque noted in the left external carotid artery. Antegrade flow is noted in the left vertebral artery. Procedure Carotid Duplex [id number]. Prelim given to [place] at Dr. Garvin's office. Exam performed in department. Interpretation Summary Irregular plague at the proximal right internal and external carotids with <50% stenosis of each. Extensive irregular plague at the proximal left internal carotid with >80% stenosis. <50% stenosis left external carotid Antegrade right vertebral Antegrade but diminished flow left vertebral Ordering Physician: Jamal Garvin Referring Physician: Stuart Bacon Performed By: Carleen Martinez, NORMA, RVT
== END ==
PROVIDERS: Family Provider Family Medicine; PCP Family Medicine; Referring Provider Surgery; Visit Provider Surgery
DX: I65.23 Occlusion and stenosis of bilateral carotid arteries (principal); R09.89 Other specified symptoms and signs involving the circulatory and respiratory systems
CPT/HCPCS: 93880

== ENCOUNTER → 2018-08-25 15:49 | Outpatient (CLI) | payer MEDICAID, SELFPAY ==
[2018-08-14 14:07] VITALS: BMI 28.3
--- NOTE | 2018-08-25 15:52 | CT_ITS ---
STUDY: CTA NECK WITH CONTRAST REASON FOR EXAM: Male, 53 years old. Carotid stenosis on ultrasound. RADIATION DOSAGE (If Supplied By Facility): CTDIvol = ( 20.02 ) mGy, DLP = ( 571.19 ) mGycm TECHNIQUE: CT angiography with multi-detector data acquisition was performed from the aortic arch to the skull base following intravenous administration of 100ml IV Isovue 370. MIP images were reconstructed from the axial data set. Post-processing of the angiographic images was performed, with multiplanar reformation and 3D reconstruction. Individualized dose optimization techniques were used for this CT. COMPARISON: Carotid ultrasound, August 21, 2018. FINDINGS: AORTIC ARCH: There is atherosclerotic calcific plaque formation of the aortic arch and great vessels arising from the aortic arch, without a hemodynamically significant stenosis. There is a normal origin of the brachiocephalic, left common carotid, and left subclavian arteries. RIGHT CAROTID ARTERIES: Is minimal calcific plaque near the origin of the right common carotid artery (CCA) without cement. There is no significant plaque at the carotid bifurcation extending into the carotid bulb with less than 50% stenosis. There is a small focal calcific plaque at the origin of the right internal carotid (ICA) artery without a hemodynamically significant stenosis. Scattered small calcific plaque are seen along the course of the visualized cervical portion of the right internal carotid artery without stenosis.. There are calcifications in the origin of the right external carotid artery (ECA) without significant stenosis.. LEFT CAROTID ARTERIES: There is mild noncalcified plaque along the course of the left common carotid artery (CCA) without significant stenosis. There is calcific plaque at the carotid bifurcation extending into the carotid bulb with less than 50% stenosis. There is extensive calcific plaque at the origin of the left internal carotid (ICA) artery with an approximate 80 % stenosis. Stenosis. Normal visualized cervical portion of the left internal carotid artery. Normal origin of the left external carotid artery (ECA). VERTEBRAL ARTERIES: There is enhancement within the bilateral vertebral arteries with a small left vertebral artery, and a dominant right vertebral artery. CT/CTA Neck W/WO Contrast IMPRESSION: 1. Significant stenosis of approximately 80% diameter stenosis at the origin of the internal carotid artery. This would correlate with the area of marked stenosis seen on ultrasound. The area of high velocities seen more distally is thought to be secondary to tortuosity rather than true stenosis. 2. Hemodynamically insignificant right carotid plaque by NASCET criteria. 3. Small left vertebral artery Electronically Signed: Vern Acevedo DO at 16:43 EDT Tel [phone], Service support ,
[2018-08-25 16:32] LABS: Hematocrit 44.1 % (40-54); Hemoglobin 14.7 g/dl (13.0-16.5); Mean Corp Hgb Conc 33.3 g/gl (32-36); Mean Corpuscular Hgb 30.6 pg (27.0-32.0); Mean Corpuscular Volume 91.9 fL (80-94); Mean Platelet Vol. 11.1 fl (6.2-12.0); Platelet Count 177 K/mm3 (150-450); RBC Distribution Width CV 12.9 % (11.6-14.6); RBC Distribution Width SD 42.7 fl (35.1-43.9); White Blood Count 9.1 K/mm3 (4.4-11.0)
[2018-08-25 16:39] LABS: Scan Indicated on CBC? Y/N NO
[2018-08-25 17:02] LABS: Anion Gap 10 (5-15); BUN 8 mg/dL (7-18); Calcium,Total 9.2 mg/dL (8.5-10.1); Chloride 101 mmol/L (98-107); Creatinine, Serum 0.89 mg/dL (0.70-1.30); EST Glomerular Filtration Rate 95 mL/min (>60); Est Glom Filt Rate - Afr Amer 114 mL/min (>60); Glucose 91 mg/dL (74-106); Potassium 4.2 mmol/L (3.5-5.1); Sodium Level 138 mmol/L (136-145)
== END ==
PROVIDERS: Family Provider Family Medicine; PCP Family Medicine; Referring Provider Surgery; Visit Provider Surgery
DX: Z01.818 Encounter for other preprocedural examination (principal); I65.23 Occlusion and stenosis of bilateral carotid arteries
CPT/HCPCS: 36415; 70498; 80048; 85027; Q9967

== ENCOUNTER 2018-09-09 05:17 | Inpatient (IN) | payer MEDICAID, SELFPAY ==
[2018-08-27 10:17] VITALS: BMI 28.3
[2018-09-02 13:15] VITALS: BP 106/70; PULSE 90; RESP 16; TEMP 36.8; O2SAT 96; BMI 30.5
--- NOTE | 2018-09-02 13:27 | SDCEKG_ITS ---
Test Reason : Blood Pressure : / mmHG Vent. Rate : 071 BPM Atrial Rate : 071 BPM P-R Int : 136 ms QRS Dur : 080 ms QT Int : 400 ms P-R-T Axes : 002 014 032 degrees QTc Int : 434 ms Normal sinus rhythm Low voltage QRS Septal infarct , age undetermined Abnormal ECG Confirmed by ROMERO ARIZMENDI ([id number]), technical editor LETHA MITCHELL ([id number]) on 09/04/2018 10:53:08 AM Referred By: Jamal Garvin Confirmed By:ROMERO ARIZMENDI
[2018-09-02 15:37] LABS: Partial Thromboplast Time 31.5 Seconds (24.1-36.2)
[2018-09-09] VITALS (20 sets, daily range): BP systolic 92–127; BP diastolic 47–76; PULSE 59–83; RESP 16–18; TEMP 36.1–36.9; O2SAT 92–97; BMI 30.5
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
--- NOTE | 2018-09-09 06:25 | PCM.OPRPT ---
Problem List (1) Carotid stenosis, left Status: Acute Report of Operation Date of Procedure: 09/09/18 Pre-Operative Diagnosis: Critical stenosis left extracranial internal carotid artery Post-Operative Diagnosis: Same Surgery/Procedure Performed:: Right radial arterial line placement. Left carotid endarterectomy with Vascu-Guard bovine patch angioplasty. Reference number [id number]. P and: [phone]. Lot number [id number] Description of Surgical Findings:: At the bedside timeout and informed consent was obtained. Prince test was performed demonstrating adequate ulnar flow. The right wrist was gently extended prep with Betadine. Ultrasound was used to identify the right radial artery. Under ultrasound guidance 1% lidocaine was instilled. A total of 1 cc was used. A 20-gauge Angiocath was inserted into the vessel and advanced with Seldinger wire. This was exchanged out for an Arrow kit 20-gauge Angiocath. It was secured to the skin with 3-0 silk. OpSite Susana wrap applied. Excellent waveform obtained. No apparent complication. He tolerated the procedure well. Hand was viable at the completion. The patient was subsequently taken the operating room for definitive left carotid surgery Patient was taken to the operating room. He was placed on the table. He underwent general endotracheal intubation anesthesia. Ancef 2 g were given intravenously preoperatively. The left neck was sterilely prepped draped. An oblique incision was made along the anterior border the sternocleidomastoid. Sharp dissection carried down through the substance tissue. Patient was rather deep. Spring retractors were utilized. The sternocleidomastoid was reflected laterally. The facial vein was secured with 3-0 Vicryl ligatures prior to transecting it. The internal jugular vein was reflected laterally dissection was formed directly down upon the common carotid. Cephalad dissection was performed the bulb was elevated the vagus nerve identified and protected. Dissection performed cephalad on the internal carotid and the hypoglossal nerve was identified and protected. The ansa cervicalis was treated with hemoclips and transected to allow for better mobilization cephalad as the hypoglossal had to be further mobilized. Circumferential control stain of the internal carotid and a Dacron tape and Niall tourniquet applied. Circumferential control of the external carotid and a vessel loop was applied circumferential control of the superior thyroid and a Amanda tie of 3-0 Vicryl and circumferential control was performed the common carotid with a Amanda tie of Dacron. The patient then received 10,000 units based upon body weight. After approximately 30 minutes an additional 1000 units of heparin was given. Peripheral vascular clamps were placed on the internal carotid common carotid external carotid. 11 blade was used to make an arteriotomy which was extended with Amanda scissors. The plaque was very thick calcific and occlusive. The plaque extended cephalad. Had to perform more cephalad dissection. Initially I tried to place a #10 USCI style shunt but was not able to so I placed an 8 [place] shunt. The plaque was sharply elevated and transected proximally and then dissected distally it was freed distally using small Amanda scissors transected and an inversion enterectomy was performed the external carotid. Further debris was carefully removed from the carotid wall that was irrigated noted to be intact with cephalad inspection suggested that there was still plaque that extended underneath the shunt cephalad close to the extent of my complete mobilization. Time the place a shot was 4 minutes and 34 seconds. This was because of the size differential need to extend the incision. The shunt was in from 8:20 AM and 12 seconds and then I removed the shunt at 8:29 AM and 28 seconds.. Complete flow was resumed at 9:19:04. Having removed the shunt I was able to extend my incision more cephalad on the internal carotid I performed more of an endarterectomy I used several tacking sutures of 7-0 Prolene to secure the plaque I then used a Vascu-Guard peripheral vascular patch 0.8 x 8 cm. It was shaped to form and a patch angioplasty was created with running 6-0 Prolene. Prior to completion there was good retrograde flow from the internal carotid external carotid and good antegrade flow from the common carotid. The patch angioplasty was completed several repair sutures of 7-0 Prolene required hemostasis was then completely achieved. Flow appeared to be good. Hemostasis was nicely intact. The wound was then closed by approximately the platysma with a running 3-0 Vicryl. The skin edges proximal and running septic or 5-0 Vicryl. The napoleon-incisional area was anesthetized with 10 cc of 0.5% Marcaine. Steri-Strips Telfa and OpSite dressings applied. Sponge and instrument and needle counts were reported the surgery were correct. Blood loss was 200 cc. He seemed awake neurologically intact on the table. He was taken to the recovery area in satisfactory condition without apparent complication. Specimen plaque. Drains none. Blood loss 200 cc. Jamal Garvin M.D., F.A.C.S. Type of Anesthesia:: General Anesthesiologist: Marissa Mansfield
[2018-09-09] MEDS: Cefazolin 2 GM in 0.9% Normal Saline 100 ML IV (07:11)
--- NOTE | 2018-09-09 07:15 | PLAQ_PTH ---
PATIENT: DEBORAH SCHULER LOC: [facility] U#:[id number] AGE/SX: 53/M ROOM: [facility]317 RE09/09/[address]: Dr. Jamal Garvin MD : 1965 BED: 1 DIS: 09/10/2018 SPEC #: [id number] RECD: 09/09/18 15:03 STATUS: RADHA REMala #: [id number] DOMENICA: 09/09/18 07:[address]: Jamal Garvin DEPT: SURGICAL PATHOLOGY RECD BY: Ayo Sellers ENTERED: 09/10/18 08:00 SP TYPE: PLAQUE OTHR DR: Dr. Stuart Bacon MD Tissues: PLAQUE Procedures: Decalcification bone/plaque Surgery Specimen Level III HEADER OPERATION: Left carotid endarterectomy with patch angioplasty PRE-OP DIAGNOSIS: Left carotid stenosis TISSUE SUBMITTED: Left carotid artery plaque MICROSCOPIC DIAGNOSIS Left carotid artery plaque, endarterectomy: Atheromatous plaque with calcification. CE:sanju 09/15/18 GROSS DESCRIPTION Received in fixative is one container labeled with the patient's name and designated carotid artery plaque. The specimen consists of an irregular fragment of indurated fabian-yellow calcified tissue measuring 3 x 2 x 0.5 cm. The specimen is sectioned and totally submitted in one cassette after decalcification. / AM:sanju 09/10/18 TC:5 CPT: 05032, 95794
--- NOTE | 2018-09-09 07:23 | DCINST_ITS ---
Discharge Diet: Light diet - advance as tolerated - if you have questions about your diet instructions, please talk to you doctor. Discharge Activity: May Not Drive - for 3-5 days or while taking narcotic pain medicine. May shower in (days): 3 - You may shower on Friday Lifting Restrictions: 10 pounds Call your doctor if your incision/area has: Continuous Slow Oozing, Sudden Increased Bleeding, Increased Pain/ Swelling, Increased Redness, Foul Smelling Discharge Call your doctor if you observe: Fever of 101 or Higher Suture Line Care: Avoid Pulling/Pushing, Avoid Pinching/Bending Additional Dressing/Incision Instructions:: Leave steri-strips in place for 1 week. Allergies/Adverse Reactions: Allergies ANTIBIOTIC OINTMENT Adverse Reaction (Uncoded 08/27/18 10:17) Hives Medications to take at Discharge Meclizine HCl [Antivert] 12.5 mg PO BID PRN PRN 09/07/16 Albuterol Inhaler [Ventolin Hfa] 2 puff INHALATION Q6H PRN PRN 12/10/16 traZODone [Desyrel] 100 mg PO QHS 07/11/18 folic acid 1 mg tablet 1 mg PO DAILY 08/14/18 mupirocin 2 % topical ointment 1 applic TOPICAL TID 08/14/18 paroxetine 20 mg tablet 20 mg PO DAILY 08/14/18 thiamine HCl (vitamin B1) 100 mg tablet 100 mg PO BID tab 08/14/18 triamcinolone acetonide 0.1 % topical cream 1 applic TOPICAL BID 08/14/18 Amlodipine/Benazepril [Lotrel 10-20 MG Capsule] 1 capsule PO DAILY 09/02/18 Clopidogrel Bisulfate [Plavix] 75 mg PO DAILY 09/02/18 Multivitamin [Daily Multiple Vitamin] 1 each PO DAILY 09/02/18 Nicotine [Nicotine Patch] 1 each TD DAILY 09/02/18 Omeprazole [Prilosec] 40 mg PO DAILY 09/02/18 levETIRAcetam tablet [Keppra tablet] 1,000 mg PO BID 09/02/18 Aspirin [Aspir 81] 162 mg DAILY 09/09/18 Hydrocodone Bitart/Apap 5-325 [[place] 5MG-325MG] 1 tablet PO Q4H PRN PRN 2 Days #6 tablet 09/09/18 The following prescriptions were given: Hydrocodone Bitart/Apap 5-325 [[place] 5MG-325MG] 1 tablet PO Q4H PRN PRN 2 Days #6 tablet PRN Reason: Pain Primary Care Physician: Stuart Bacon MD [Primary Care Provider] - Test Results: Test results from this visit will be discussed in further detail at your follow- up appointment, if applicable. Please Follow Up With: Jamal Garvin MD - [phone] When: Call to make an appointment to be seen in about 10 days.
[2018-09-09] MEDS: Heparin Injection (Vial) 5,000 UNIT/ML VIAL 5000 UNIT (09:20)
[2018-09-09] MEDS: Bupivacaine Mpf 0.5% 30 ML VIAL (09:40)
--- NOTE | 2018-09-09 10:00 | EKG12_ITS ---
Test Reason : Blood Pressure : / mmHG Vent. Rate : 070 BPM Atrial Rate : 070 BPM P-R Int : 132 ms QRS Dur : 096 ms QT Int : 440 ms P-R-T Axes : 035 025 028 degrees QTc Int : 475 ms Normal sinus rhythm Low voltage QRS Borderline ECG When compared with ECG of 02-SEP-2018 12:34, No significant change was found Confirmed by DUNCAN FELIPE ([id number]), content editor VIRI WAN ([id number]) on 09/14/2018 4:56:23 PM Referred By: Jamal Garvin Confirmed By:SHERICE FELIPE
--- NOTE | 2018-09-09 11:30 | NURSING ---
Left Carotid surgical site with firmness to palpation surrounding incision. Pressure held for 10 minutes. Fentanyl given for discomfort while holding pressure, see PACU order sheet. Site now soft to palpate. No changes in neuro assessment.
--- NOTE | 2018-09-09 12:35 | SUR.PHASEI ---
1145 to 1200 HARDENED ARE AND SWELLING NOTED TO LT NECK, MANUAL PRESSURE APPLIED, VSS. 1210 DR ADKINS AT BEDSIDE, INCISION SITE ASSESSED, MANUAL PRESSURE APPLIED TO SITE, PER DR ADKINS. VSS, NEURO INTACT
[2018-09-09] MEDS: Acetaminophen 325 MG Tablet PO (13:18)
[2018-09-09] MEDS: Lactated Ringers 1,000 ML 30 ML IV (13:18)
--- NOTE | 2018-09-09 14:18 | NURSING ---
has a hard knot to lt side of neck which was reported by pacu nurse.
--- NOTE | 2018-09-09 14:25 | NURSING ---
Hob is a 30 degrees.
[2018-09-09] MEDS: Cefazolin 1 GM/50 ML BAG IV ×2 (14:57→22:09)
[2018-09-09] MEDS: Thiamine Hydrochloride 100 MG Tablet PO (16:51)
[2018-09-09] MEDS: Morphine 2 MG/ML Syringe IV (17:19)
--- NOTE | 2018-09-09 18:05 | PCM.PN.BLA ---
Progress Note Mild swelling left neck Neuro intact Pt on oxygen Will get pt OOB to chair and work on IS and ambulation with assistance
--- NOTE | 2018-09-09 19:01 | NURSING ---
Assisted to recliner. call in reach. Prerna well.
[2018-09-09] MEDS: HYDROcodone Bitartrate/Apap 5/325 Tablet PO (22:00)
[2018-09-09] MEDS: levETIRAcetam 1,000 MG Tablet 1000 MG PO (22:01)
[2018-09-09] MEDS: traZODone 100 MG Tablet PO (22:01)
[2018-09-10 00:04] VITALS: BP 130/94; PULSE 94; RESP 18; TEMP 36.6; O2SAT 94
[2018-09-10] MEDS: Morphine 2 MG/ML Syringe IV (04:03)
[2018-09-10] MEDS: 0.9% NaCl Peripheral Flush Adult/Peds IV (04:04)
--- NOTE | 2018-09-10 05:41 | PCM.PN.SRG ---
Subjective: Pt feels well Still on oxygen - Physical Exam General: Alert, Oriented x3, Cooperative, No apparent distress HEENT: - Neck: - - left neck slightly swollen but supple, NT Lungs: - - clear apices Neurological: Cranial nerves II-XII grossly intact Vital Signs Temp Pulse Resp BP Pulse Ox 97.8 F 94 18 130/94 H 94 09/10/18 00:04 09/10/18 00:04 09/10/18 00:04 09/10/18 00:04 09/10/18 00:04 Oxygen Flow Rate (L/min) 1 Oxygen Delivery Method Nasal Cannula Weight: 210 lb 1.608 oz Body Mass Index (BMI) 30.5 Finger Stick Blood Glucose 103 Intake and Output for Last 24 Hours 09/08/18 09/09/18 09/10/18 23:59 23:59 23:59 Intake Total 3799 / 3799 Output Total 880 / 880 Balance 2919 / 2919 Medical Necessity - Tobacco Use Smoking Status: Former smoker Assessment/Plan All Active Problems (Last Reviewed 08/27/18 @ 10:16 by Jacklyn Crawford) Carotid stenosis, left (Acute) Medical non-compliance (Acute) Bilateral carotid bruits (Acute) Swelling (Acute) Acute hyperactive alcohol withdrawal delirium (Acute) Multilobar lung infiltrate (Acute) Acute respiratory failure with hypoxia (Acute) Mediastinal lymphadenopathy (Acute) Bronchospasm (Acute) Sepsis (Acute) Acute respiratory failure with hypoxemia (Acute) Liver mass (Acute) Hyponatremia (Acute) Hypokalemia (Acute) Plan DC today Pt needs to ambulate in halls which hasn't happened yet and needs to work on IS
[2018-09-10 06:00] VITALS: BP 157/77; PULSE 79; RESP 16; TEMP 36.4; O2SAT 95
[2018-09-10] MEDS: Enoxaparin 40 MG/0.4 ML Syringe SC (06:20)
[2018-09-10 07:35] VITALS: BP 160/79; PULSE 83; RESP 16; TEMP 36.6; O2SAT 98
[2018-09-10] MEDS: Aspirin E.C. 81 MG Tablet 162 MG PO (07:37)
[2018-09-10] MEDS: Thiamine Hydrochloride 100 MG Tablet PO (07:37)
[2018-09-10] MEDS: levETIRAcetam 1,000 MG Tablet 1000 MG PO (10:09)
[2018-09-10] MEDS: amLODIPine 10 MG Tablet PO (10:10)
[2018-09-10] MEDS: Pantoprazole Sodium 40 MG Tablet PO (10:11)
[2018-09-10] MEDS: Clopidogrel Bisulfate 75 MG Tablet PO (10:11)
[2018-09-10] MEDS: Paroxetine 20 MG Tablet PO (10:11)
[2018-09-10] MEDS: Lisinopril 20 MG Tablet PO (10:12)
== END 2018-09-10 10:19 | disposition home or self-care (01) | DRG 24 ==
LOC: ACINP 05:18 → MS3 06:52
PROVIDERS: Anesthesiology; Admitting Provider Surgery; Family Provider Family Medicine; PCP Family Medicine; Referring Provider Surgery; Visit Provider Surgery
PROC: 03CL0ZZ Extirpation of Matter from Left Internal Carotid Artery, Open Approach (ICD-10-PCS; CPT 35301; principal; 2018-09-09 06:55)
DX: I65.22 Occlusion and stenosis of left carotid artery (principal); F17.200 Nicotine dependence, unspecified, uncomplicated
CPT/HCPCS: 85730; 88304; 88311; 93005; 99406; J7030; J7040; J7120; A4216; J2405

== ENCOUNTER → 2018-10-02 09:53 | Outpatient (CLI) | payer MEDICAID, SELFPAY ==
[2018-09-09 13:52] VITALS: BMI 30.5
== END ==
PROVIDERS: Family Provider Family Medicine; PCP Family Medicine; Referring Provider Surgery; Visit Provider Surgery
DX: Z98.890 Other specified postprocedural states (principal)
CPT/HCPCS: 93882

== ENCOUNTER 2018-10-15 16:40 | Emergency (ER) | payer MEDICAID, SELFPAY ==
[2018-09-09 13:52] VITALS: BMI 30.5
[2018-10-15 16:41] VITALS: BP 157/93; PULSE 110; RESP 20; TEMP 36.4; O2SAT 94; BMI 32.1
[2018-10-15] MEDS: morphine 8 MG/ML Syringe IM (17:10)
--- NOTE | 2018-10-15 17:13 | US_ITS ---
HISTORY: Right lower extremity swelling COMPARISON: None. TECHNIQUE: Sagittal and axial cruz scale and color Doppler images, including compression images, obtained of the right common femoral, femoral, popliteal, and posterior tibial veins. Doppler wave forms from the segments also recorded. Doppler and color Doppler interrogation performed of the saphenofemoral junction. # of images incl. paperwork: 17 FINDINGS: Color Doppler and cruz scale imaging of the right lower extremity deep venous structures demonstrate no evidence of intraluminal thrombus. Normal compressibility of all deep venous segments. Normal phasic Doppler wave forms, which demonstrate normal augmentation response and no evidence of venous reflux. No reflux noted at the saphenofemoral junction. US/Venous Duplex Imag/Limited/Uni IMPRESSION: 1. Negative for right lower extremity deep venous thrombosis. at 1800 Reported and signed by: Juan C Mujiac MD Electronically Signed: Juan C Mujica MD at 17:59 EDT Tel , Service support ,
--- NOTE | 2018-10-15 17:46 | ED.VISSUMM ---
- ER Visit Summary Date of Service: 10/15/18 Chief Complaint: Right leg pain and swelling History of Present Illness: The patient is a [address] Jamal Garvin, Dr. Bacon, and Dr. Edmond. Patient reports that he has bilateral leg pain that is been present for approximately 1 year. States that it seems to switch from one side to the other. And that his right leg has been worse over the course the past week. He reports he has a sharp pains down 10 with walking 7 out of 10 at rest. Denies any paresthesias distally. States that he also has had swelling in his right leg over the same timeframe. Patient does report that he is seen Dr. Jamal Garvin for this in the past. He had what sounds to be a left femoropopliteal bypass in the past. He had arterial studies in July. Review of systems: General: No fever, chills, cold sweats. Cardiovascular: No chest pain, palpitations. Respiratory: No cough, shortness of breath, dyspnea on exertion. Gastrointestinal: No abdominal pain, nausea, vomiting, diarrhea, melena, or hematochezia. Genitourinary: No dysuria, frequency, hematuria. Skin: No rash. Neuro: No headache, numbness, weakness. Physical Examination: Vitals: Stable. Afebrile. General: Well-nourished and well-developed. Head: Normocephalic atraumatic. Neck: Supple, no lymphadenopathy. No JVD. Nontender. Cardiovascular: Regular rate and rhythm. No murmurs. Respiratory: No respiratory distress. Clear to auscultation bilaterally. Abdominal: Soft, nontender, nondistended, normal bowel sounds. No guarding, rebound, or peritoneal signs. Back: Nontender. Extremities: 1+ edema of his right calf. Mild erythema to his legs bilaterally. This is not warm. His legs are not pale or cool to make you think that she he has an ischemic leg. However, I am unable to palpate dorsalis pedis pulses bilaterally. He has biphasic dopplerable dorsalis pedis pulses bilaterally, right greater than left. Skin: Normal color, no rash. Neurologic: Alert and oriented ?3. Cranial nerves II through XII are intact. Normal strength and sensation. Psych: Normal affect. Test Results: Right lower extremity Doppler is negative. Emergency Department Course and Treatment: An [facility] report was obtained which shows he is only had one prescription for [place] in the past year. He is given a dose of morphine IM. Treatment Plan: Patient will be discharged with Percocet. I did discuss them that this sounds like it is due to arterial insufficiency and he has claudication. He is already on Plavix. He is instructed to follow-up Dr. Jamal Garvin as soon as possible. I did discuss the signs of an ischemic limb with him. He understands that he needs to return for worsening pain, cold or pale leg. Disposition: To home in improved and stable condition. Impression: 1. Right calf pain. 2. Claudication. This note was generated with [employer] dictation software. It may contain incorrect words, spelling, and punctuation that were not noted in review of the chart prior to signing ED Disposition - Plan for ED Patient: Instructions: Peripheral Vascular Disease Prescriptions: Oxycodone HCl/Acetaminophen [Percocet 5/325] 1 tablet PO Q6H PRN PRN 3 Days #12 tablet PRN Reason: Pain Referrals: Jamal Garvin MD [STAFF PHYSICIAN] - As soon as possible
[2018-10-15 18:03] VITALS: BP 167/98; PULSE 92; RESP 18; O2SAT 94
== END 2018-10-15 18:04 | disposition home or self-care (01) ==
LOC: ED 17:56
PROVIDERS: Emergency Provider Emergency Medicine; Family Provider Family Medicine; PCP Family Medicine
DX: M79.661 Pain in right lower leg (principal); I73.9 Peripheral vascular disease, unspecified; J44.9 Chronic obstructive pulmonary disease, unspecified; I10 Essential (primary) hypertension; Z79.02 Long term (current) use of antithrombotics/antiplatelets; Z79.899 Other long term (current) drug therapy
CPT/HCPCS: 93971; 96372; 99282

== ENCOUNTER 2019-01-29 07:35 | Day surgery (SDC) | payer MEDICAID, SELFPAY ==
[2018-12-17 10:19] VITALS: BMI 32.5
[2019-01-21 13:49] VITALS: BMI 32.5
[2019-01-29 07:53] LABS: Hematocrit 45.8 % (40-54); Hemoglobin 14.8 g/dL (13.0-16.5); Mean Corp Hgb Conc 32.3 g/dL (32-36); Mean Corpuscular Hgb 28.6 pg (27.0-32.0); Mean Corpuscular Volume 88.4 fL (80-94); Mean Platelet Vol. 8.9 fl (6.2-12.0); Platelet Count 304 K/mm3 (150-450); RBC Distribution Width CV 13.7 % (11.6-14.6); RBC Distribution Width SD 44.8 fl (35.1-43.9); Red Blood Count 5.18 M/mm3 (4.6-6.2)
[2019-01-29 07:59] VITALS: BMI 30.8
[2019-01-29 08:07] LABS: Anion Gap 5 (5-15); BUN 17 mg/dL (7-18); BUN/Creat Ratio 17.6 RATIO (10-20); Calcium,Total 9.3 mg/dL (8.5-10.1); Chloride 102 mmol/L (98-107); Creatinine, Serum 0.97 mg/dL (0.70-1.30); EST Glomerular Filtration Rate 86 mL/min (>60); Est Glom Filt Rate - Afr Amer 104 mL/min (>60); Estimated Creatinine Clearance 90.94 ml/min; Glucose 96 mg/dL (74-106); Potassium 4.2 mmol/L (3.5-5.1); Sodium Level 135 mmol/L (136-145)
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
[2019-01-29 10:21] LABS: ACT Activated Clotting Time 252 sec (74-137)
[2019-01-29 10:21] LABS: ACT Activated Clotting Time 136 sec (74-137)
--- NOTE | 2019-01-29 10:24 | OP.PCM_ITS ---
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 Left common femoral artery 80% stenosis Surgery/Procedure Performed:: Abdominal pelvic arteriogram with left common iliac 8 x 50 mm Viabahn stent grafting Description of Surgical Findings:: Timeout and informed consent was obtained. 53-year-old gentleman was taken to the special procedures lab placed supine on the table. Throughout the procedure he received a total of 100 mcg of fentanyl and 3 mg of Versed is intravenous sedation. Bilateral groins were sterilely prepped and draped. Ultrasound was used to identify the right common femoral artery. 2% lidocaine was instilled as a local anesthetic. A total of 10 cc was used. Under ultrasound guidance micropuncture needle was inserted in the right common femoral artery followed by Seldinger wire technique and fluoroscopic control. A micropuncture sheath was inserted. 035 J-wire was inserted. A 5 [place] short sheath guide was inserted. An 035 angled Glidewire and a 5 [place] universal flush catheter placed into the abdominal aorta. A AP aortogram was obtained with 15 cc of a second for 15 cc of opaque. Throughout the procedure a total of 45 cc of contrast was used. Images had demonstrated high-grade occlusive disease of the left common iliac and of the left common femoral artery. I was able to get the Glidewire past the area of iliac stenosis. I then placed a 4 [place] Edgar catheter. I exchanged out for an 035 Magic wire. I initially placed a 7 [place] destination sheath. The patient received 10,000 units of heparin. Based upon ACT measurements I did give an additional 1000 units of heparin later in the case. Through the destination sheath I was able to get more magnified views of the left common iliac. I had intended on using an 8 x 39 mm Do stent but it then became apparent that it was not simple occlusive disease of the left common iliac but rather ectatic pre-aneurysmal and occlusive disease. Having identified that then I graded to an 8 [place] Balkan sheath. I then placed a 8 x 50 mm Viabahn stent graft into the left common iliac. I seated that in place with a 8 x 40 mm Powerflex balloon insufflated to only 6 jmaal of pressure. Completion images demonstrated good positioning of the Viabahn. I withdrew the Balkan sheath and placed a Perclose device in the right groin. That achieved complete hemostasis. He tolerated procedure well no apparent complications. He was taken to the recovery area in satisfactory condition. Edges demonstrate a patent right common iliac Do stent and a patent right external iliac prot?g? stent and high-grade 90% occlusive disease with aneurysmal change left common iliac. There is diffuse smooth disease of the remainder of the left external iliac. High-grade stenosis of the proximal left internal iliac with very poor flow in the internal iliac. There is a high-grade at least 80% stenosis of the left common femoral artery. The profundofemoral and proximal superficial femoral arteries are patent. Subsequent to the placement of the Viabahn stent graft there appears to be complete resolution of the area of high-grade occlusive disease with coverage of the area of ectasia/pr e-aneurysmal disease. Appears to be slightly better flow into the left internal iliac at the completion though that vessel remains highly diseased. I anticipate future requirement of the left common femoral artery endarterectomy. Jamal Garvin M.D., F.A.C.S.
== END 2019-01-29 13:41 | disposition home or self-care (01) ==
LOC: CLSP 07:37
PROVIDERS: Family Provider Family Medicine; PCP Family Medicine; Referring Provider Family Medicine; Visit Provider Surgery
DX: I70.212 Atherosclerosis of native arteries of extremities with intermittent claudication, left leg (principal); I10 Essential (primary) hypertension; E78.5 Hyperlipidemia, unspecified; G40.909 Epilepsy, unspecified, not intractable, without status epilepticus; F41.9 Anxiety disorder, unspecified; F17.210 Nicotine dependence, cigarettes, uncomplicated; Z91.19 Patient's noncompliance with other medical treatment and regimen; Z79.02 Long term (current) use of antithrombotics/antiplatelets; Z79.899 Other long term (current) drug therapy
CPT/HCPCS: 36200; 36245; 36415; 37221; 75625; 75710; 76937; 80048; 85027; 85347; 99152; 99153; J7040; Q9967; C1725; C1760; C1769; C1874; C1876; C1894

== ENCOUNTER → 2019-04-01 12:00 | Outpatient (CLI) | payer MEDICAID, SELFPAY ==
[2019-03-02 10:56] VITALS: BMI 31.2
--- NOTE | 2019-04-01 12:02 | ECHOD_ITS ---
Reason For Study: Arrhythmia Procedure This was a 2D Doppler, Color Flow transthoracic echocardiogram. Exam performed in department. Left Ventricle Normal LV size. The estimated ejection fraction is 55 %. Normal diastology for age. No regional wall motion abnormalities noted. Right Ventricle Normal RV size. Normal systolic function. Atria Normal left atrium. Normal right atrium. No doppler evidence for ASD. Mitral Valve There is no mitral valve stenosis. Trivial mitral valve insufficiency. Tricuspid Valve There is no tricuspid stenosis. Trivial tricuspid valve insufficiency. Pulmonary artery systolic pressure is 35-40 mmHg. Aortic Valve Trisinus/trileaflet aortic valve. There is no aortic stenosis. No aortic valve insufficiency. Pulmonic Valve There is no pulmonic valvular stenosis. No pulmonic valve insufficiency identified. Great Vessels Normal aortic root. Pericardium/Pleural No pericardial effusion. MMode/2D Measurements & Calculations LVIDd: 4.9 cm IVSd: 1.1 cm Ao root diam: 3.1 cm LVIDs: 3.5 cm LVPWd: 0.99 cm RVDd: 3.5 cm FS: 27.6 % LAV(MOD-bp): 26.0 ml LVAd ap4: 24.5 cm2 SV(MOD-sp4): 31.6 ml LAV(MOD-bp) Indexed: 12.2 ml/m2 EDV(MOD-sp4): 63.2 ml LAV(MOD-sp2): 24.9 ml EDV(sp4-el): 65.9 ml LAV(MOD-sp4): 21.0 ml LVAs ap4: 15.8 cm2 ESV(MOD-sp4): 31.6 ml ESV(sp4-el): 31.3 ml EF(MOD-sp4): 50.0 % EF(sp4-el): 52.5 % SV(sp4-el): 34.6 ml LA A4 area: 11.2 cm2 LA dimension(2D): 3.6 cm RA A4 area: 15.8 cm2 Doppler Measurements & Calculations MV E max tirso: 39.5 cm/sec Lat Peak E' Tirso: 8.3 cm/sec Med Peak E' Tirso: 3.9 cm/sec MV A max tirso: 81.2 cm/sec E/E' lat: 4.8 E/E' med: 10.2 MV E/A: 0.49 Ao V2 max: 112.7 cm/sec LV V1 max: 91.5 cm/sec PA V2 max: 80.2 cm/sec Ao max P.1 mmHg LV V1 max P.3 mmHg Ao V2 mean: 82.2 cm/sec Ao mean P.9 mmHg Ao V2 VTI: 18.5 cm TR max tirso: 286.5 cm/sec TR max P.8 mmHg Interpretation Summary The estimated ejection fraction is 55 %. Normal diastology for age. Trivial mitral valve insufficiency. Trivial tricuspid valve insufficiency. Pulmonary artery systolic pressure is 35-40 mmHg. Ordering Physician: Gabriele Cobos Referring Physician: Stuart Bacon Performed By: Carleen Martinez, NORMA, RVT
== END ==
PROVIDERS: Family Provider Family Medicine; PCP Family Medicine; Referring Provider Specialist; Visit Provider Specialist
DX: I10 Essential (primary) hypertension (principal); R00.0 Tachycardia, unspecified
CPT/HCPCS: 93306

== ENCOUNTER 2019-04-04 21:27 | Observation (INO) | payer MEDICAID, SELFPAY ==
[2019-03-02 10:56] VITALS: BMI 31.2
[2019-04-04 21:29] VITALS: BP 70/47; PULSE 92; RESP 19; TEMP 36.6; O2SAT 93; BMI 31.8
[2019-04-04 21:35] VITALS: BP 68/48
[2019-04-04 21:36] LABS: Bedside Glucose 99 mg/dL (70-110)
--- NOTE | 2019-04-04 21:44 | CT_ITS ---
STUDY: CT BRAIN WITHOUT CONTRAST REASON FOR EXAM: Male, 54 years old. Syncope. Multiple falls. Alcohol. RADIATION DOSAGE (If Supplied By Facility): CTDIvol = ( 44.99 ) mGy, DLP = ( 762.36 ) mGycm TECHNIQUE: Transaxial CT imaging of the brain was performed without administration of intravenous contrast material. Individualized dose optimization techniques were used for this CT. COMPARISON: 04/26/2018 FINDINGS: Normal soft tissue structures. Normal calvarium. Normal size ventricles and extra-axial spaces for the patient''s age. Normal white matter tracts of the cerebral hemispheres. Normal basal ganglia and thalami. Normal brainstem. Normal cerebellum. There is no intracranial hemorrhage. There are no findings of an acute ischemic infarction. Soft tissue density in both maxillary sinuses, consistent with combination of chronic and acute sinusitis. CT/Brain/Head without Contrast IMPRESSION: Normal unenhanced CT scan of the brain. Electronically Signed: Willian Prasad MD at 22:23 EST , Service support ,
--- NOTE | 2019-04-04 21:45 | EKG12_ITS ---
Test Reason : DYSRHYTHMIA Blood Pressure : / mmHG Vent. Rate : 086 BPM Atrial Rate : 086 BPM P-R Int : 150 ms QRS Dur : 098 ms QT Int : 364 ms P-R-T Axes : 050 041 077 degrees QTc Int : 435 ms Normal sinus rhythm Low voltage QRS Nonspecific T wave abnormality Abnormal ECG Confirmed by JOSE DANIEL FERRARI, FERNANDEZ ([id number]), makeup editor VIRI WAN ([id number]) on 04/07/2019 11:40:19 AM Referred By: JANES Confirmed By:FERNANDEZ SKY MD
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
[2019-04-04] MEDS: 0.9% Normal Saline 1,000 ML 1000 ML IV ×2 (21:50→22:39)
[2019-04-04 21:56] LABS: Absolute Lymphocyte Count 3.55 X10^3/uL (0.83-4.51); Basophil# 0.06 X10^3/uL; Basophil% 0.6 % (0-1); Eosinophils% 1.1 % (0-5); Hematocrit 44.9 % (40-54); Hemoglobin 15.1 g/dL (13.0-16.5); Lymphocyte # 3.55 X10^3/ul (4.0); Lymphocyte % 38.1 % (19-41); Mean Corp Hgb Conc 33.6 g/dL (32-36); Mean Corpuscular Hgb 29.1 pg (27.0-32.0); Mean Corpuscular Volume 86.5 fL (80-94); Mean Platelet Vol. 10.1 fl (6.2-12.0); Monocyte# 0.59 X10^3/uL; Monocyte% 6.3 % (0-10); NRBC Flagged by Analyzer 0 % (0-5); Neutrophil # 4.97 X10^3/uL (2.7-7.7); Neutrophil % 53.4 % (47-70); Platelet Count 221 K/mm3 (150-450); RBC Distribution Width CV 15.9 % (11.6-14.6); RBC Distribution Width SD 50.3 fl (35.1-43.9); Red Blood Count 5.19 M/mm3 (4.6-6.2); White Blood Count 9.3 K/mm3 (4.4-11.0)
[2019-04-04] MEDS: Ondansetron 4 MG/2 ML Vial IV (21:56)
[2019-04-04 22:01] LABS: International Normalized Ratio 1.1; Prothrombin Time (Protime)PT. 13.7 SECONDS (11.7-14.9)
[2019-04-04 22:02] LABS: Partial Thromboplast Time 29.9 Seconds (24.1-36.2)
--- NOTE | 2019-04-04 22:02 | RAD_ITS ---
STUDY: X-RAY CHEST REASON FOR EXAM: Male, 54 years old. Multiple falls. Intoxication. TECHNIQUE: Single AP portable view of the chest. COMPARISON: 07/15/2018. FINDINGS: The lungs are clear and expanded. There is no demonstrated pleural abnormality. Normal size heart. Normal mediastinum and jazmine. Normal visualized pulmonary arteries. Normal visualized aortic arch and descending thoracic aorta. Normal visualized thoracic spine. Normal visualized ribs, clavicles, and shoulders. There is no demonstrated abnormality of the visualized soft tissue structures of the upper abdomen. RAD/Chest 1 View (Portable) IMPRESSION: Normal x-ray examination of the chest. Electronically Signed: Willian Prasad MD at 22:23 EST , Service support ,
[2019-04-04 22:23] LABS: AST(SGOT) 68 U/L (15-37); Alanine Aminotransfer ALT/SGPT 43 U/L (16-61); Albumin, Serum 3.6 g/dL (3.2-5.0); Alkaline Phosphatase 108 U/L (45-117); Anion Gap 11 (5-15); BUN 6 mg/dL (7-18); BUN/Creat Ratio 6.4 RATIO (10-20); Bilirubin, Direct 0.08 mg/dL (0.00-0.30); Calcium,Total 8.3 mg/dL (8.5-10.1); Chloride 104 mmol/L (98-107); Creatinine, Serum 0.93 mg/dL (0.70-1.30); EST Glomerular Filtration Rate 90 mL/min (>60); Est Glom Filt Rate - Afr Amer 108 mL/min (>60); Globulin 4.2 g/dL (2.2-4.2); Glucose 105 mg/dL (74-106); Lipase 772 U/L (73-393); Potassium 4.3 mmol/L (3.5-5.1); Protein, Total 7.8 g/dL (6.4-8.2); Sodium Level 138 mmol/L (136-145)
[2019-04-04 22:25] LABS: Lactic Acid 3.2 mmol/L (0.4-1.9)
--- NOTE | 2019-04-04 22:25 | ED.RN ---
lactic 3.[address] adkins. verbalizes understanding
[2019-04-04 22:28] VITALS: BP 72/55; PULSE 79; RESP 16; O2SAT 95
--- NOTE | 2019-04-04 22:55 | CT_ITS ---
STUDY: CT ABDOMEN AND PELVIS WITH CONTRAST REASON FOR EXAM: Male, 54 years old. Vomiting. Hypotension. Alcohol and multiple falls. RADIATION DOSAGE (If Supplied By Facility): CTDIvol = ( 16.04 ) mGy, DLP = ( 1145.91 ) mGycm TECHNIQUE: Transaxial images were obtained from the dome of the diaphragm to the symphysis pubis without oral contrast. IV 100mL [id number]-[id number] was administered. Sagittal and coronal images were reconstructed. Individualized dose optimization techniques were used for this CT. COMPARISON: 12/26/2016. FINDINGS: The visualized lung bases are unremarkable. The visualized portions of the heart are within normal limits. There is decreased attenuation of the liver consistent with steatosis. There is hepatomegaly. Normal gallbladder and extrahepatic biliary system. Normal spleen. Normal pancreas. Normal bilateral adrenal glands. Normal right kidney, with stable small upper pole cyst. Normal left kidney. Evaluation of the GI tract is limited by absence of oral contrast. Cannot exclude stomach wall thickening. No dilated loops of bowel or evidence for obstruction. Cannot exclude segmental thickening of the mcdaniel of the small or large bowel. Cannot exclude enteritis or colitis. Appendix within normal limits. There is diffuse atherosclerotic calcification of the abdominal aorta, without a demonstrated aneurysm. Bilateral iliac artery stents are seen Normal inferior vena cava. Normal retroperitoneum. Distended urinary bladder. Normal abdominal wall. There are diffuse degenerative changes of the visualized lumbar spine. Stable mild compression fracture of T12. CT/Abdomen/Pelvis W IV Cont ONLY IMPRESSION: No definite acute abnormalities. Evaluation of the GI tract is limited without oral contrast. Fatty liver with hepatomegaly. Distended bladder. Electronically Signed: Willian Prasad MD at 23:34 EST , Service support ,
[2019-04-04 23:02] VITALS: BP 84/56; PULSE 82; RESP 16; O2SAT 94
[2019-04-04] MEDS: 0.9% Normal Saline 1,000 ML 999 ML IV (23:02)
[2019-04-04 23:39] LABS: Bacteria 0 SEEN /hpf (None Seen); Mucous, Urine 0 SEEN /hpf (<or=2+); Red Blood Cells-Urine 0 SEEN /hpf (0-5); White Blood Cells 0 SEEN /hpf (0-5)
[2019-04-04 23:44] LABS: Color, Urine Straw (Yellow); Glucose, Dipstick Normal (Normal); Ketone-Dipstick Negative (Negative); Leukocyte Esterase-Dipstick Negative /ul (Negative); Nitrite-Dipstick Negative (Negative); Occult Blood-Urine Negative /ul (Negative); Protein-Dipstick 100 mg/dl (Negative); Specific Gravity, Urine 1.005 (1.002-1.030); Urine Bilirubin Dipstick Negative (Negative); Urine Clarity Clear (Clear); Urine Urobilinogen Normal (Normal); Urine pH 6.5 (5.0 - 8.0)
[2019-04-04 23:50] LABS: Squamous Epithelial Cells - UA 0-5 SEEN /hpf (0-5)
[2019-04-04 23:55] LABS: Amphetamine Urine VISTA NEGATIVE (<1000 ng/mL); Barbiturate Urine VISTA NEGATIVE (< 200 ng/mL); Benzodiazepine Urine VISTA NEGATIVE (< 200 ng/mL); Cocaine Urine VISTA NEGATIVE (< 300 ng/mL); Ecstacy Urine VISTA NEGATIVE (< 500 ng/mL); Methadone Urine VISTA NEGATIVE (< 300 ng/mL); PCP Urine VISTA NEGATIVE (< 25 ng/mL); THC Urine VISTA NEGATIVE (< 50 ng/mL); Vista UDS pH Range 7
[2019-04-05] VITALS (19 sets, daily range): BP systolic 73–162; BP diastolic 46–95; PULSE 84–103; RESP 14–20; TEMP 36.4–36.7; O2SAT 88–98; BMI 31.8
[2019-04-05] MEDS: 0.9% Normal Saline 1,000 ML 999 ML IV (00:39)
[2019-04-05 01:58] LABS: Reflex Lactate? Y
[2019-04-05] MEDS: 0.9% Normal Saline 1,000 ML 150 ML IV ×4 (01:58→21:50)
[2019-04-05 02:22] LABS: Absolute Lymphocyte Count 1.14 X10^3/uL (0.83-4.51); Absolute Neutrophil Count 3.6 X10^3/uL (2.0-7.7); Basophil# 0.03 X10^3/uL; Basophil% 0.6 % (0-1); Eosinophil# 0.02 X10^3/uL; Eosinophils% 0.4 % (0-5); Hematocrit 40.8 % (40-54); Hemoglobin 13.3 g/dL (13.0-16.5); Lymphocyte # 1.14 X10^3/ul (4.0); Lymphocyte % 21.3 % (19-41); Mean Corp Hgb Conc 32.6 g/dL (32-36); Mean Corpuscular Hgb 29.2 pg (27.0-32.0); Mean Corpuscular Volume 89.5 fL (80-94); Mean Platelet Vol. 9.8 fl (6.2-12.0); Monocyte# 0.54 X10^3/uL; Monocyte% 10.1 % (0-10); NRBC Flagged by Analyzer 0 % (0-5); Neutrophil # 3.58 X10^3/uL (2.7-7.7); Platelet Count 150 K/mm3 (150-450); RBC Distribution Width CV 16.3 % (11.6-14.6); RBC Distribution Width SD 53.8 fl (35.1-43.9); Red Blood Count 4.56 M/mm3 (4.6-6.2); White Blood Count 5.3 K/mm3 (4.4-11.0)
[2019-04-05 02:30] LABS: Anion Gap 9 (5-15); BUN 6 mg/dL (7-18); BUN/Creat Ratio 6.4 RATIO (10-20); Calcium,Total 7.2 mg/dL (8.5-10.1); Chloride 109 mmol/L (98-107); Creatinine, Serum 0.94 mg/dL (0.70-1.30); EST Glomerular Filtration Rate 89 mL/min (>60); Est Glom Filt Rate - Afr Amer 107 mL/min (>60); Estimated Creatinine Clearance 89.84 ml/min; Glucose 104 mg/dL (74-106); Potassium 3.9 mmol/L (3.5-5.1); Sodium Level 141 mmol/L (136-145)
[2019-04-05] MEDS: chlordiazePOXIDE 25 MG Capsule 50 MG PO ×4 (02:32→18:52)
[2019-04-05 02:35] LABS: Lactic Acid 1.6 mmol/L (0.4-1.9)
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
[2019-04-05] MEDS: Ipratropium/Albuterol Sulfate 3 ML AMPUL.NEB INHALATION ×3 (07:03→15:06)
[2019-04-05] MEDS: Folic Acid 1 MG Tablet PO (08:22)
[2019-04-05] MEDS: Clopidogrel Bisulfate 75 MG Tablet PO (08:22)
[2019-04-05] MEDS: Thiamine Hydrochloride 100 MG Tablet PO (08:22)
[2019-04-05] MEDS: Multivitamins,Therapeutic Tablet 1 TABLET PO (08:22)
[2019-04-05] MEDS: Pantoprazole Sodium 40 MG Tablet PO (08:22)
[2019-04-05] MEDS: Paroxetine 20 MG Tablet PO (08:22)
[2019-04-05] MEDS: Gabapentin 100 MG Capsule PO ×3 (08:22→18:52)
[2019-04-05] MEDS: levETIRAcetam 1,000 MG Tablet 1000 MG PO ×2 (08:22→21:51)
[2019-04-05] MEDS: Enoxaparin 40 MG/0.4 ML Syringe SC (08:22)
[2019-04-05] MEDS: Amitriptyline 25 MG Tablet PO (08:22)
--- NOTE | 2019-04-05 10:14 | CASEMGMT ---
SW met with patient for alcohol abuse and he is homeless staying at [facility]. SW introduced self and role at [facility]. He said he plans on going back to [facility] and per patient he said they told him he can return. SW asked him about his alcohol use. He said he knows he needs to quit. He is working with [employer] on housing. He is aware of the local resources for alcohol treatment. He denies any further needs. Concha QUILES MSW
[2019-04-05] MEDS: 0.9% Saline Lock 10 ML Syringe IV ×2 (13:13→21:52)
--- NOTE | 2019-04-05 18:54 | PCM.HOSP.N ---
Hospitalist Note Patient was seen and examined today, he was admitted early this morning for respiratory distress and was intoxicated. Patient's respiratory panel today resulted positive for rhinovirus. He is currently on 3 L via nasal cannula. Patient will continue on IV corticosteroids and aerosol treatments. It is possible he will need supplemental oxygen at the time of discharge.
[2019-04-05] MEDS: amLODIPine 5 MG Tablet PO (19:43)
[2019-04-06] VITALS (12 sets, daily range): BP systolic 157–202; BP diastolic 88–126; PULSE 70–104; RESP 18–20; TEMP 36.3–36.6; O2SAT 90–97
[2019-04-06] MEDS: hydrOXYzine PAM 25 MG Capsule 50 MG PO (00:28)
[2019-04-06] MEDS: chlordiazePOXIDE 25 MG Capsule 50 MG PO ×2 (03:24→11:22)
[2019-04-06] MEDS: 0.9% Saline Lock 10 ML Syringe IV ×2 (05:47→13:52)
[2019-04-06] MEDS: Ipratropium/Albuterol Sulfate 3 ML AMPUL.NEB INHALATION ×2 (07:11→10:28)
[2019-04-06] MEDS: Thiamine Hydrochloride 100 MG Tablet PO (08:28)
[2019-04-06] MEDS: Multivitamins,Therapeutic Tablet 1 TABLET PO (08:28)
[2019-04-06] MEDS: levETIRAcetam 1,000 MG Tablet 1000 MG PO (08:28)
[2019-04-06] MEDS: Paroxetine 20 MG Tablet PO (08:29)
[2019-04-06] MEDS: amLODIPine 10 MG Tablet PO (08:29)
[2019-04-06] MEDS: Clopidogrel Bisulfate 75 MG Tablet PO (08:29)
[2019-04-06] MEDS: Pantoprazole Sodium 40 MG Tablet PO (08:29)
[2019-04-06] MEDS: Gabapentin 100 MG Capsule PO ×2 (08:29→11:22)
[2019-04-06] MEDS: Folic Acid 1 MG Tablet PO (08:29)
[2019-04-06] MEDS: Enoxaparin 40 MG/0.4 ML Syringe SC (08:29)
[2019-04-06] MEDS: Amitriptyline 25 MG Tablet PO (08:29)
[2019-04-06] MEDS: Lisinopril 20 MG Tablet PO (08:30)
[2019-04-06 11:24] LABS: Magnesium 1.7 mg/dL (1.6-2.6)
--- NOTE | 2019-04-06 15:05 | DCINST_ITS ---
- Discharge Diagnoses Current Active Problems: Current Active and Chronic Problems (Last Reviewed 03/02/19 @ 13:56 by Vaishali Cobos MD) Alcohol intoxication (Acute) Hypotension (Acute) You will use the following diet at home:: No restrictions Your food should be the consistency of: Regular Your liquids should be the consistency of: Regular/Thin Discharge Activity: Return to Normal Activity Allergies/Adverse Reactions: Allergies ANTIBIOTIC OINTMENT Adverse Reaction (Uncoded 03/02/19 10:59) Hives Medications to take at Discharge Meclizine HCl [Antivert] 12.5 mg PO BID PRN PRN 09/07/16 Albuterol Inhaler [Ventolin Hfa] 2 puff INHALATION Q6H PRN PRN 12/10/16 folic acid 1 mg tablet 1 mg PO DAILY 08/14/18 paroxetine 20 mg tablet 20 mg PO DAILY 08/14/18 Clopidogrel Bisulfate [Plavix] 75 mg PO DAILY 09/02/18 Multivitamin [Daily Multiple Vitamin] 1 ea PO DAILY 09/02/18 levETIRAcetam tablet [Keppra tablet] 1,000 mg PO BID 09/02/18 Gabapentin [Neurontin] 100 mg PO TIDCM 10/15/18 amitriptyline 25 mg tablet 25 mg PO DAILY #30 tab 01/21/19 ibuprofen 800 mg tablet 800 mg PO TID PRN 02/25/19 omeprazole 40 mg capsule,delayed release 40 mg PO DAILY 02/25/19 Amlodipine Besylate/Benazepril [Amlodipine-Benazepril 10-20 mg] 1 ea PO DAILY 04/04/19 Cilostazol 50 mg PO BID 04/04/19 MethylPREDNISolone DosePak [Medrol DosePak] 4 mg PO UD #1 box 04/06/19 Varenicline Tartrate [Chantix] 1 ea PO UD #1 tab.ds.pk 04/06/19 The following prescriptions were given: Varenicline Tartrate [Chantix] 1 ea PO UD #1 tab.ds.pk Transmission Status: Pending to [facility] MethylPREDNISolone DosePak [Medrol DosePak] 4 mg PO UD #1 box Transmission Status: Pending to [facility] Primary Care Physician: Stuart Bacon MD [Primary Care Provider] - Please follow up with your Primary Care Physician in: in 1-2 weeks Test Results: Test results from this visit will be discussed in further detail at your follow- up appointment, if applicable.
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
== END 2019-04-06 15:06 | disposition home or self-care (01) ==
LOC: ED 23:58 → PCU 04-05 01:41
PROVIDERS: Admitting Provider Family Medicine; Emergency Provider Emergency Medicine; Family Provider Family Medicine; PCP Family Medicine; Visit Provider Internal Medicine
DX: J20.6 Acute bronchitis due to rhinovirus (principal); I95.9 Hypotension, unspecified; F10.129 Alcohol abuse with intoxication, unspecified; F17.210 Nicotine dependence, cigarettes, uncomplicated; Y90.8 Blood alcohol level of 240 mg/100 ml or more; I10 Essential (primary) hypertension; I73.9 Peripheral vascular disease, unspecified; E78.5 Hyperlipidemia, unspecified; G40.909 Epilepsy, unspecified, not intractable, without status epilepticus; F41.9 Anxiety disorder, unspecified; F32.9 Major depressive disorder, single episode, unspecified; K21.9 Gastro-esophageal reflux disease without esophagitis; R59.0 Localized enlarged lymph nodes; Z91.19 Patient's noncompliance with other medical treatment and regimen; Z79.899 Other long term (current) drug therapy; Z79.02 Long term (current) use of antithrombotics/antiplatelets; Z59.0 Homelessness
CPT/HCPCS: 36415; 70450; 71045; 74177; 80048; 80076; 80307; 80320; 81001; 82962; 83605; 83690; 83735; 84484; 85025; 85610; 85730; 87633; 87804; 93005; 94640; 96361; 96372; 96374; 96375; 96376; 99218; 99285; J7030; Q9967; A4216; G0378; G0480; J2405

== ENCOUNTER 2019-04-25 22:46 | Emergency (ER) | payer MEDICAID, SELFPAY ==
[2019-04-05 00:58] VITALS: BMI 31.8
[2019-04-25 22:47] VITALS: BP 60/51; PULSE 87; RESP 18; TEMP 36.6; O2SAT 92; BMI 31.5
--- NOTE | 2019-04-25 23:15 | EKG12_ITS ---
Test Reason : UNRESPONSIVE Blood Pressure : / mmHG Vent. Rate : 083 BPM Atrial Rate : 083 BPM P-R Int : 158 ms QRS Dur : 102 ms QT Int : 434 ms P-R-T Axes : 052 037 043 degrees QTc Int : 509 ms Normal sinus rhythm Low voltage QRS Prolonged QT Confirmed by CATHIE FERRARI, CARLA ([id number]), scientific editor STARR RIVERA ([id number]) on 04/29/2019 11:04:30 AM Referred By: MARILIN Confirmed By:CARLA BRAND MD
--- NOTE | 2019-04-25 23:15 | CT_ITS ---
HISTORY: SYNCOPE, ETOH, FELL, DIAPHORETIC, LEGHARGIC ADDITIONAL HISTORY: None provided. COMPARISON: 04/04/2019 TECHNIQUE: Axial, coronal and sagittal CT images were obtained of the brain without intravenous contrast. Number of images including paperwork: 261. A radiation dose optimization technique was used for this scan. FINDINGS: BRAIN PARENCHYMA: No acute hemorrhage or mass. No definite acute infarct; MRI more sensitive. White matter hypodensity is nonspecific but most commonly seen with chronic ischemic changes. Generalized atrophy. EXTRA-AXIAL SPACES: No acute hemorrhage. VENTRICULAR SYSTEM: No hydrocephalus. PARANASAL SINUSES AND MASTOIDS: Mucosal thickening. Small amount of fluid in the left maxillary sinus. Some interval decrease. ORBITS: Unremarkable imaged extent. SKELETON AND SOFT TISSUES: Calvarium intact. Chronic appearing nasal deformity. Deformity of the left mandibular condyle appears similar. Bowing of the right medial orbital wall appears similar. ASPECTS score: Not applicable. CT/Brain/Head without Contrast IMPRESSION: No acute intracranial abnormality. Chronic involutional and white matter changes. Decrease in findings of maxillary sinusitis. Individualized dose optimization techniques were used for this CT. at 0031 Reported and signed by: Hortensia Prescott MD Electronically Signed: Hortensia Prescott MD at 0:31 EST Tel , Service support ,
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
[2019-04-25 23:25] VITALS: O2SAT 97
[2019-04-25 23:36] LABS: Absolute Lymphocyte Count 3.24 X10^3/uL (0.83-4.51); Absolute Neutrophil Count 3.3 X10^3/uL (2.0-7.7); Basophil% 1.3 % (0-1); Eosinophil# 0.24 X10^3/uL; Eosinophils% 3.1 % (0-5); Hematocrit 44.7 % (40-54); Hemoglobin 14.7 g/dL (13.0-16.5); Lymphocyte # 3.24 X10^3/ul (4.0); Lymphocyte % 42.5 % (19-41); Mean Corp Hgb Conc 32.9 g/dL (32-36); Mean Corpuscular Hgb 28.8 pg (27.0-32.0); Mean Corpuscular Volume 87.6 fL (80-94); Mean Platelet Vol. 9.5 fl (6.2-12.0); Monocyte# 0.71 X10^3/uL; Monocyte% 9.3 % (0-10); NRBC Flagged by Analyzer 0 % (0-5); Neutrophil % 43.4 % (47-70); Platelet Count 302 K/mm3 (150-450); RBC Distribution Width CV 15.9 % (11.6-14.6); RBC Distribution Width SD 50.8 fl (35.1-43.9); White Blood Count 7.6 K/mm3 (4.4-11.0)
[2019-04-25] MEDS: 0.9% Normal Saline 1,000 ML 500 ML IV (23:45)
[2019-04-25] MEDS: 0.9% Normal Saline 1,000 ML 1000 ML IV (23:45)
[2019-04-25 23:52] LABS: Anion Gap 9 (5-15); BUN 8 mg/dL (7-18); BUN/Creat Ratio 7.3 RATIO (10-20); Chloride 109 mmol/L (98-107); EST Glomerular Filtration Rate 74 mL/min (>60); Est Glom Filt Rate - Afr Amer 90 mL/min (>60); Estimated Creatinine Clearance 79.27 ml/min; Glucose 99 mg/dL (74-106); Sodium Level 140 mmol/L (136-145)
[2019-04-26] VITALS (15 sets, daily range): BP systolic 68–127; BP diastolic 6–94; PULSE 82–94; RESP 13–21; O2SAT 94–100
[2019-04-26] MEDS: 0.9% Normal Saline 1,000 ML 1000 ML IV ×3 (00:09→01:02)
== END 2019-04-26 06:51 | disposition home or self-care (01) ==
PROVIDERS: Emergency Provider Emergency Medicine; Family Provider Family Medicine; PCP Family Medicine
DX: F10.129 Alcohol abuse with intoxication, unspecified (principal); E86.0 Dehydration; R55 Syncope and collapse; E87.1 Hypo-osmolality and hyponatremia; I10 Essential (primary) hypertension; E78.5 Hyperlipidemia, unspecified; G40.909 Epilepsy, unspecified, not intractable, without status epilepticus; I73.9 Peripheral vascular disease, unspecified; R09.89 Other specified symptoms and signs involving the circulatory and respiratory systems; F41.9 Anxiety disorder, unspecified; F17.200 Nicotine dependence, unspecified, uncomplicated; Z79.02 Long term (current) use of antithrombotics/antiplatelets; Z79.899 Other long term (current) drug therapy
CPT/HCPCS: 70450; 80048; 80320; 84484; 85025; 93005; 96360; 96361; 99285; J7030; A4216; G0480

== ENCOUNTER 2019-05-03 06:56 | Inpatient (IN) | payer MEDICAID, SELFPAY ==
[2019-04-05 00:58] VITALS: BMI 31.8
--- NOTE | 2019-04-29 16:51 | EKG12_ITS ---
Test Reason : PRE OP Blood Pressure : / mmHG Vent. Rate : 106 BPM Atrial Rate : 106 BPM P-R Int : 156 ms QRS Dur : 088 ms QT Int : 354 ms P-R-T Axes : 053 051 061 degrees QTc Int : 470 ms Sinus tachycardia Low voltage QRS Septal infarct , age undetermined Abnormal ECG Confirmed by JOSE DANIEL FERRARI, FERNANDEZ ([id number]), photographic editor LETHA MITCEHLL ([id number]) on 05/03/2019 12:47:46 PM Referred By: Jamal Garvin Confirmed By:FERNANDEZ SKY MD
[2019-04-29 17:23] LABS: Hematocrit 47.9 % (40-54); Mean Corp Hgb Conc 33.4 g/dL (32-36); Mean Corpuscular Hgb 29.3 pg (27.0-32.0); Mean Corpuscular Volume 87.7 fL (80-94); Mean Platelet Vol. 9.1 fl (6.2-12.0); Platelet Count 264 K/mm3 (150-450); RBC Distribution Width CV 15.7 % (11.6-14.6); RBC Distribution Width SD 50.4 fl (35.1-43.9); Red Blood Count 5.46 M/mm3 (4.6-6.2); White Blood Count 8.4 K/mm3 (4.4-11.0)
[2019-04-29 17:28] LABS: Partial Thromboplast Time 28.6 Seconds (24.1-36.2)
[2019-04-29 18:03] LABS: AST(SGOT) 28 U/L (15-37); Alanine Aminotransfer ALT/SGPT 28 U/L (16-61); Albumin, Serum 3.9 g/dL (3.2-5.0); Alkaline Phosphatase 112 U/L (45-117); Anion Gap 6 (5-15); BUN 6 mg/dL (7-18); BUN/Creat Ratio 5.8 RATIO (10-20); Bilirubin, Direct 0.09 mg/dL (0.00-0.30); Calcium,Total 8.9 mg/dL (8.5-10.1); Chloride 109 mmol/L (98-107); Creatinine, Serum 1.03 mg/dL (0.70-1.30); EST Glomerular Filtration Rate 80 mL/min (>60); Est Glom Filt Rate - Afr Amer 97 mL/min (>60); Globulin 4.7 g/dL (2.2-4.2); Glucose 86 mg/dL (74-106); Potassium 4.1 mmol/L (3.5-5.1); Protein, Total 8.6 g/dL (6.4-8.2); Sodium Level 141 mmol/L (136-145)
[2019-05-03] VITALS (15 sets, daily range): BP systolic 101–141; BP diastolic 65–96; PULSE 78–97; RESP 16–18; TEMP 36.3–36.6; O2SAT 91–98; BMI 29.3; BMI 29.8
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
[2019-05-03] MEDS: Lactated Ringers 1,000 ML 100 ML IV ×2 (07:51→10:15)
--- NOTE | 2019-05-03 08:35 | DCINST_ITS ---
Discharge Diet: Light diet - advance as tolerated - if you have questions about your diet instructions, please talk to you doctor. Discharge Activity: May Not Drive - for 1 week or while taking narcotic pain medicine. May shower in (days): 1 Lifting Restrictions: 10 pounds Call your doctor if your incision/area has: Continuous Slow Oozing, Sudden Increased Bleeding, Increased Pain/ Swelling, Increased Redness, Foul Smelling Discharge Call your doctor if you observe: Fever of 101 or Higher Suture Line Care: Avoid Pulling/Pushing, Avoid Pinching/Bending Additional Dressing/Incision Instructions:: You may shower over your plastic dressing. You may leave the left groin plastic dressing on for 3 days. After removal please leave the Steri-Strips on for 1 week Allergies/Adverse Reactions: Allergies ANTIBIOTIC OINTMENT Adverse Reaction (Uncoded 04/29/19 14:35) Hives Medications to take at Discharge Meclizine HCl [Antivert] 12.5 mg PO BID PRN PRN 09/07/16 Albuterol Inhaler [Ventolin Hfa] 2 puff INHALATION Q6H PRN PRN 12/10/16 folic acid 1 mg tablet 1 mg PO DAILY 08/14/18 paroxetine HCl 20 mg tablet 20 mg PO DAILY 08/14/18 Multivitamin [Daily Multiple Vitamin] 1 ea PO DAILY 09/02/18 levETIRAcetam tablet [Keppra tablet] 1,000 mg PO BID 09/02/18 Gabapentin [Neurontin] 100 mg PO TIDCM 10/15/18 amitriptyline 25 mg tablet 25 mg PO QHS #30 tab 01/21/19 ibuprofen 800 mg tablet 800 mg PO TID PRN 02/25/19 omeprazole 40 mg capsule,delayed release 40 mg PO DAILY 02/25/19 Amlodipine Besylate/Benazepril [Amlodipine-Benazepril 10-20 mg] 1 ea PO DAILY 04/04/19 Cilostazol 50 mg PO BID 04/04/19 Carvedilol [Coreg (Beta Sunita)] 12.5 mg PO BID 04/29/19 Aspirin [Aspir 81] 81 mg PO DAILY #180 tablet. 05/03/19 The following prescriptions were given: Aspirin [Aspir 81] 81 mg PO DAILY #180 tablet. Orders to be completed after discharge: 12 Lead EKG [[facility]] Time Frame: 04/29/19, Facility: [facility], Location: Cardiovascular Services Basic Metabolic Profile (BMP) Time Frame: 04/29/19, Facility: [facility], Location: Laboratory CBC-Complete Blood Cnt No Diff Time Frame: 04/29/19, Facility: [facility], Location: Laboratory Liver Profile Time Frame: 04/29/19, Facility: [facility], Location: Laboratory Miscellaneous Order Time Frame: 04/29/19, Facility: [facility], Location: Laboratory Primary Care Physician: Stuart Bacon MD [Primary Care Provider] - Test Results: Test results from this visit will be discussed in further detail at your follow- up appointment, if applicable. Please Follow Up With: Jamal Garvin MD - [phone] When: Call to make an appointment to be seen in about 10 days.
[2019-05-03 09:01] LABS: ACT Activated Clotting Time 131 sec (74-137)
[2019-05-03] MEDS: Cefazolin 2 GM in 0.9% Normal Saline 100 ML IV ×2 (09:02→15:40)
--- NOTE | 2019-05-03 09:20 | PLAQ_PTH ---
PATIENT: DEBORAH SCHULER LOC: [facility] U#:[id number] AGE/SX: 54/M ROOM: MN316 RE05/03/[address]: Dr. Jamal Garvin MD : 1965 BED: 1 DIS: 05/04/2019 SPEC #: [id number] RECD: 05/03/19 12:45 STATUS: RADHA REQ #: [id number] DOMENICA: 05/03/19 09:[address]: Jamal Garvin DEPT: SURGICAL PATHOLOGY RECD BY: Ayo Sellers ENTERED: 05/03/19 13:54 SP TYPE: PLAQUE OTHR DR: Dr. Stuart Bacon MD Tissues: PLAQUE Procedures: Decalcification bone/plaque Surgery Specimen Level III HEADER OPERATION: Left common femoral artery endarterectomy with patch angio PRE-OP DIAGNOSIS: High-grade stenosis with exophytic calcific plaque involving left common femoral artery TISSUE SUBMITTED: Left common femoral artery plaque MICROSCOPIC DIAGNOSIS Left common femoral artery plaque, endarterectomy: Calcified atheromatous plaque consistent with severe stenosis. AM:sanju 05/07/19 GROSS DESCRIPTION Received in fixative is one container labeled with the patient's name and designated left common femoral artery plaque. The specimen consists of multiple irregular fragments of light fabian soft tissue that in aggregate measure 4 x 2 x 0.3 cm. The specimen cuts with gritty sensation. The specimen is totally submitted in one cassette after decalcification. / SJ:sanju 05/03/19 TC:5 CPT: 30686, 39233
[2019-05-03] MEDS: Heparin Injection (Vial) 5,000 UNIT/ML VIAL 5000 UNIT (10:30)
[2019-05-03 11:11] LABS: ACT Activated Clotting Time 263 sec (74-137)
[2019-05-03 11:11] LABS: ACT Activated Clotting Time 307 sec (74-137)
[2019-05-03] MEDS: Bupivacaine Mpf 0.5% 30 ML VIAL (11:46)
--- NOTE | 2019-05-03 11:53 | OP.PCM_ITS ---
Problem List (1) PAD (peripheral artery disease) Status: Chronic Report of Operation Date of Procedure: 05/03/19 Pre-Operative Diagnosis: Peripheral arterial occlusive disease with high-grade stenosis left common femoral artery Post-Operative Diagnosis: High-grade stenosis left common femoral artery Surgery/Procedure Performed:: Left common femoral endarterectomy with vascu guard patch angioplasty. Vascu-Guard. [id number]. PN [id number]. Lot [id number] Description of Surgical Findings:: 54-year-old gent was taken the operating placement table underwent general endotracheal vision anesthesia. Ancef 2 g given this was properly. The left lower extremity was sterilely prepped and draped. A slightly oblique incision made in the left groin sharp dissection carried down through the subcu tissue hemostasis team electrocautery hemoclips the common femoral artery was identified it was noted to be very hard and calcific dissection performed proximally and distally got just beneath the inguinal ligament vessel loop was placed vessel loop was placed then distally at the bifurcation of the superficial femoral and profundofemoral. The patient received 10,000's of heparin after adequate CircAid time Morejon clamp was placed proximally and Vesseloops distally the common femoral artery was opened longitudinally there was significant high-grade stenosis in the true lumen was very difficult to identify. Finally the true lumen could be identified proximally the endarterectomy was performed with a Cartwright extensive amount of plaque and debris was removed. The plaque was sharply transected at the intima at the origin of the superficial femoral and profundofemoral arteries. Were needed several tacking sutures of 7-0 Prolene were placed. Debris was copiously irrigated the plaque was sharply transected proximally. A bovine patch angioplasty was performed. A 10 x 1 similar piece was slightly shaped deformed and then a patch angioplasty created with running 6-0 Prolene. Prior to completion there was adequate retrograde flow from the profundofemoral and superficial femoral and good antegrade flow from the left external iliac. Clamps were removed initial flow was instituted from the profundofemoral and superficial femoral. Several repair sutures of 7-0 Prolene were required. The patient had received an additional 1000 and's of heparin during the procedure based upon ACT measurements. He now received 20 mg of protamine. Surgicel was applied and pressure was held. Repair suture of 7-0 Prolene was placed. Then I placed fold FloSeal over the operative area. The wound was closed with deep layers of interrupted 3-0 Vicryl and then the skin was approximated running septic sugar 4-0 Monocryl. The napoleon-incisional areas anesthetized with 20 cc of 0.5% Marcaine. Sponge and instrument and needle counts were reported the surgeon be correct. Specimens plaque. Drains none. Blood loss 250 cc. The patient had dopplerable left PT and DP pulses. The foot was warm and pink. There were no apparent complications. He was taken to the recovery area in satisfactory condition. Jamal Garvin M.D., F.A.C.S. Type of Anesthesia:: General Anesthesiologist: Israel Arteaga
[2019-05-03 11:56] LABS: ACT Activated Clotting Time 147 sec (74-137)
[2019-05-03] MEDS: Lactated Ringers 1,000 ML 30 ML IV (13:30)
[2019-05-03 14:03] LABS: KEPPRA (LEVETIRACETAM) 17.7 ug/mL (10.0-40.0)
[2019-05-03] MEDS: Gabapentin 100 MG Capsule PO (16:50)
--- NOTE | 2019-05-03 17:23 | PCM.PN.BLA ---
Progress Note Progress, no complaints, no pain Left groin dressing clean dry intact, no swelling, 3+ left DP and PT pulses Continue care Jamal Garvin M.D., F.A.C.S. STROKE Vital Signs/Narrative: Vital Signs Temp Pulse Resp BP Pulse Ox 05/03/19 16:02 97.9 F 87 16 113/67 95 05/03/19 14:02 97.7 F L 78 18 116/73 96
[2019-05-03] MEDS: Albuterol 2.5 MG/3 ML VIAL.NEB. INHALATION (18:56)
[2019-05-03] MEDS: Carvedilol 12.5 MG Tablet PO (21:33)
[2019-05-03] MEDS: levETIRAcetam 1,000 MG Tablet 1000 MG PO (21:33)
[2019-05-03] MEDS: Amitriptyline 25 MG Tablet PO (21:33)
[2019-05-03] MEDS: Cilostazol 50 MG Tablet PO (21:33)
[2019-05-03] MEDS: HYDROcodone Bitartrate/Apap 5/325 Tablet PO (21:36)
[2019-05-04 00:22] VITALS: BP 138/91; PULSE 91; RESP 18; TEMP 36.4; O2SAT 92
[2019-05-04 04:33] VITALS: BP 152/83; PULSE 92; RESP 18; TEMP 36.6; O2SAT 92
--- NOTE | 2019-05-04 05:48 | PN.SURG_ITS ---
Subjective: Patient notes some mild soreness in the left groin. He has been up out of bed to the chair. He is spontaneously voiding. He denies any problem with the left foot. - Physical Exam Vitals/I&O's: Vital Signs Temp Pulse Resp BP Pulse Ox 97.9 F 92 18 152/83 H 92 05/04/19 04:33 05/04/19 04:33 05/04/19 04:33 05/04/19 04:33 05/04/19 04:33 Oxygen Flow Rate (L/min) 3 Oxygen Delivery Method Room Air Weight: 206 lb Body Mass Index (BMI) 29.8 Finger Stick Blood Glucose 103 Intake and Output for Last 24 Hours 05/02/19 05/03/19 05/04/19 23:59 23:59 23:59 Intake Total 2220 / 2220 1400 / 1400 Output Total 200 / 200 400 / 400 Balance 2019 1000 / 1000 Cardiovascular: - - Groin supple, minimal ecchymosis, 3+ left DP and PT pulses Laboratory Results 04/29/19 16:40: Levetiracetam 17.7 05/03/19 08:51: Activated Clotting Time 131 05/03/19 10:32: Activated Clotting Time 307 H 05/03/19 11:00: Activated Clotting Time 263 H 05/03/19 11:45: Activated Clotting Time 147 H Current Medications Acetaminophen (Tylenol) 650 mg PO Q6H PRN PRN PRN Reason: Pain Score 1-10/10 Hydrocodone Bitart/Acetaminophen (Shields 5mg-325mg) 1 - 2 tablet PO Q4H PRN PRN PRN Reason: Pain Score 1-10/10 Last Admin: 05/03/19 21:36 Dose: 1 tablet Documented by: Albuterol Sulfate (Ventolin Aerosols) 2.5 mg INHALATION Q4H PRN PRN PRN Reason: Wheezing Last Admin: 05/03/19 18:56 Dose: 2.5 mg Documented by: Amitriptyline HCl (Elavil) 25 mg PO QHS [facility] Last Admin: 05/03/19 21:33 Dose: 25 mg Documented by: Amlodipine Besylate (Norvasc) 10 mg PO DAILY [facility] Aspirin (Aspirin, Baby) 81 mg PO DAILY@0800 [facility] Carvedilol (Coreg) 12.5 mg PO BID [facility] Last Admin: 05/03/19 21:33 Dose: 12.5 mg Documented by: Cilostazol (Pletal) 50 mg PO BID [facility] Last Admin: 05/03/19 21:33 Dose: 50 mg Documented by: Folic Acid (Folic Acid) 1 mg PO DAILY@0800 [facility] Gabapentin (Neurontin) 100 mg PO TIDCM [facility] Last Admin: 05/03/19 16:50 Dose: 100 mg Documented by: Lactated Ringer's () 1,000 mls @ 30 mls/hr IV .[id number] [facility] Last Admin: 05/03/19 13:30 Dose: 30 mls/hr Documented by: Sodium Chloride () 250 mls @ 15 mls/hr IV .[id number] PRN PRN Reason: Saline Flush Sodium Chloride () 250 mls @ 15 mls/hr IV .[id number] PRN PRN Reason: Additional IVPB Infusion Ibuprofen (Motrin) 800 mg PO TID PRN PRN PRN Reason: Pain 1-10 or Fever Levetiracetam (Keppra Tablet) 1,000 mg PO BID [facility] Last Admin: 05/03/19 21:33 Dose: 1,000 mg Documented by: Lisinopril (Zestril) 20 mg PO DAILY [facility] Meclizine HCl (Antivert) 12.5 mg PO BID PRN PRN PRN Reason: DIZZINESS Morphine Sulfate () 2 - 4 mg IV Q2H PRN PRN PRN Reason: Pain Score 1-10/10 Ondansetron HCl (Zofran) 4 mg IV Q8H PRN PRN PRN Reason: NAUSEA Pantoprazole Sodium (Protonix) 40 mg PO DAILY [facility] Paroxetine HCl (Paxil) 20 mg PO DAILY [facility] Sodium Chloride () 10 - 40 ml IV UD PRN PRN Reason: SALINE FLUSH Medical Necessity - Tobacco Use Smoking Status: Current every day smoker Tobacco Use: Cigarettes Assessment/Plan All Active Problems (Last Reviewed 03/02/19 @ 13:56 by Vaishali Cobos MD) Alcohol intoxication (Acute) Hypotension (Acute) Preop cardiovascular exam (Acute) History of carotid endarterectomy (Resolved 09/09/18) Bilateral carotid bruits (Acute) History of tracheostomy (Resolved) history arteriogram left leg (Resolved) Hyponatremia (Acute) Acute hyperactive alcohol withdrawal delirium (Resolved) Acute respiratory failure with hypoxemia (Resolved) Acute respiratory failure with hypoxia (Resolved) Bronchospasm (Resolved) Hypokalemia (Resolved) Multilobar lung infiltrate (Resolved) Sepsis (Resolved) Swelling (Resolved) history PEG tube insertion/removal (Resolved) history jaw wiring (Resolved) Dressing change today. Plan ambulation and discharge this afternoon. Jamal Garvin M.D., F.A.C.S.
[2019-05-04] MEDS: 0.9% Saline Lock 10 ML Syringe IV (06:20)
[2019-05-04] MEDS: HYDROcodone Bitartrate/Apap 5/325 Tablet PO (06:38)
--- NOTE | 2019-05-04 06:41 | NURSING ---
IV pump alarming downstream occlusion. Attempted to flush IV without success. Order obtained to leave IV as pt did not want another IV started. After removing tegaderm from IV site, IV catheter kinked and was able to be repositioned to cause IV to flush easily. IV site left in rt hand and new tegaderm applied.
[2019-05-04 07:45] VITALS: O2SAT 92
[2019-05-04 09:58] VITALS: BP 121/73; PULSE 90; RESP 16; TEMP 36.6; O2SAT 92
[2019-05-04] MEDS: Cilostazol 50 MG Tablet PO (10:12)
[2019-05-04] MEDS: Paroxetine 20 MG Tablet PO (10:12)
[2019-05-04] MEDS: Carvedilol 12.5 MG Tablet PO (10:12)
[2019-05-04] MEDS: Pantoprazole Sodium 40 MG Tablet PO (10:12)
[2019-05-04] MEDS: Lisinopril 20 MG Tablet PO (10:12)
[2019-05-04] MEDS: Gabapentin 100 MG Capsule PO ×2 (10:13→12:21)
[2019-05-04] MEDS: Aspirin 81 MG TAB.CHEW PO (10:13)
[2019-05-04] MEDS: Folic Acid 1 MG Tablet PO (10:13)
[2019-05-04] MEDS: levETIRAcetam 1,000 MG Tablet 1000 MG PO (10:13)
[2019-05-04] MEDS: amLODIPine 10 MG Tablet PO (10:13)
--- NOTE | 2019-05-04 11:05 | CASEMGMT ---
Social Work Note SW familiar with pt from previous visits. Pt's last visit at [facility] (04/05/19-04/06/2019) pt was residing at [facility]. Pt also has history of alcohol use. SW met with pt and introduced self and role at [facility]. Pt is alert and orientated x3. Pt states that he is still residing at [facility] and plans to return there at discharge. 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 Pt states he plans on resuming to work with [employer], denied being linked up with any counseling/substance abuse services through [facility] and denied referral being made for counseling. Pt states he is still drinking alcohol but has cut back tremendously. Pt states that he only drinks 4-5 beers daily instead of the 20 something he used to drink. SW encouraged pt to continue to work on decreasing his alcohol consumption and to ask for more assistance through [facility] if he feels like he needs it. Pt states understanding, denied additional needs or concerns at this time. Plan: Pt plans on returning to [facility] and continuing to work with [facility] for housing resources. Tiffany Woods SAWMILL TALLY CLERK, [employer]
--- NOTE | 2019-05-04 12:13 | CASEMGMT ---
RN CM Assessment Introduced role of RN CM to patient whom is sitting up in chair next to bed.? Patient is alert, oriented and able?to participate in RN CM Assessment. ?Care providers, pharmacy, and demographics verified. Presentation: Planned Endarterectomy with patch angioplasty Admit Dx: High Grade Stenosis Left Common Femoral artery Re-Admit: No. OBS 04/05-04/06/19 for Hypotension Barriers/Issues: Patient lives at [facility] and states no issues or concerns with DC plan back and states plans on getting himself an apartment. PCP: Stuart Bacon Specialists: None Preferred Pharmacy: [facility] Insurance: [facility] Community plan Rx Benefit:?yes ?LNOK: Aunleon Avila LW/HPOA: None, denies any offered information or completion of services on this admission. Living Arrangements:? Lives at [facility] at stated address on demographics. Ph number listed is to his Aunleon Howard. ADL?s: Independent with ambulation and ADLs, states does not think will need any DME and plans to take it easy over the next couple of days. Transportation: Aunleon Howard and denies any transportation issues. DME: None HHC: None SNF: None Goal: Return to [facility] and denies any issues, concerns or Needs with DC planning at this time. Aware CM remains available for any emerging needs. DC PLAN: Home ([facility]) and no anticipated needs identified at this time. TARA Martinez
== END 2019-05-04 13:21 | disposition home or self-care (01) | DRG 181 ==
LOC: ACINP 08:30 → MS3 12:49
PROVIDERS: Admitting Provider Surgery; Family Provider Family Medicine; PCP Family Medicine; Referring Provider Surgery; Visit Provider Surgery
PROC: 04CL0ZZ Extirpation of Matter from Left Femoral Artery, Open Approach (ICD-10-PCS; principal; 2019-05-03 09:00)
DX: I70.202 Unspecified atherosclerosis of native arteries of extremities, left leg (principal); F17.210 Nicotine dependence, cigarettes, uncomplicated
CPT/HCPCS: 36415; 80048; 80076; 80177; 85027; 85347; 85730; 88304; 88311; 93005; 94640; 99251; 99406; J7040; J7120; A4216; G0463; J2405

== ENCOUNTER 2019-05-18 22:47 | Observation (INO) | payer MEDICAID, SELFPAY ==
[2019-05-11 14:18] VITALS: BMI 30.1
[2019-05-18 22:48] VITALS: BP 107/69; PULSE 94; RESP 18; TEMP 36.4; O2SAT 92; BMI 31.7
[2019-05-18 22:50] VITALS: O2SAT 93
--- NOTE | 2019-05-18 23:19 | EKG12_ITS ---
Test Reason : SYNCOPE Blood Pressure : / mmHG Vent. Rate : 085 BPM Atrial Rate : 085 BPM P-R Int : 140 ms QRS Dur : 098 ms QT Int : 408 ms P-R-T Axes : 036 030 045 degrees QTc Int : 485 ms Normal sinus rhythm Low voltage QRS Prolonged QT Abnormal ECG Confirmed by ROMERO ARIZMENDI ([id number]), editor trade journal STARR RIVERA ([id number]) on 05/20/2019 8:26:50 AM Referred By: RINA Confirmed By:ROMERO ARIZMENDI
--- NOTE | 2019-05-18 23:22 | ED.DCSUM_ITS ---
History of Present Illness Chief Complaint: Syncope Informant: Patient Onset: Today Context: Sudden Onset Narrative: Patient is a 54-year-old male with past medical history including hypertension, alcohol abuse and peripheral vascular disease presenting after syncopal episode. Apparently patient was at the [employer] when he went to get up to get a blanket and turn the light off. The next thing he remembers he woke up on the ground with everyone standing over him. Patient does not remember feeling that he was about to pass out. He states he felt fine afterwards but was told he needed to get a medical evaluation in order to come back to the [employer]. Patient denies any associated chest pain, shortness of breath or difficulty breathing. He notes he had a stent placed in his left leg by Dr. Garvin 2 weeks ago. Patient denies any other complaints. He states he is been compliant with his medications. Past Medical History - Allergies and Home Meds Allergies/Adverse Reactions: Allergies ANTIBIOTIC OINTMENT Adverse Reaction (Uncoded 05/13/19 10:15) Hives Primary Care Physician: Stuart Bacon MD [Primary Care Provider] - Past Medical History: - - Peripheral vascular disease,Hypertension, alcohol abuse, seizure disorder, hyperlipidemia Surgical History: - - Reviewed Lives: Homeless Smoking Status: Current every day smoker - Family History Sibling Family History: Family History (Last Reviewed 05/13/19 @ 10:13 by Jacklyn Crawford) Grandmother Breast cancer Father Cancer Mother Heart disease Diabetes Kidney disease Family History: Reports: - Maternal Family History: Family History (Last Reviewed 05/13/19 @ 10:13 by Jacklyn Crawford) Grandmother Breast cancer Father Cancer Mother Heart disease Diabetes Kidney disease Family History: Reports: - Paternal Family History: Family History (Last Reviewed 05/13/19 @ 10:13 by Jacklyn Crawford) Grandmother Breast cancer Father Cancer Mother Heart disease Diabetes Kidney disease Family History: Reports: - Review of Systems General: Reports: - - Syncope. Denies: Chills, Fever, Malaise, Sweats Eyes: Denies: Visual changes - bilaterally, Diplopia ENT: Denies: Rhinorrhea, Sore throat Cardiovascular: Denies: Chest pain, Palpitations Respiratory: Reports: Cough. Denies: Dyspnea, Sputum, Dyspnea on exertion Gastrointestinal: Denies: Abdominal pain, Nausea, Vomiting, Diarrhea, Melena, Hematochezia Genitourinary: Denies: Dysuria, Hematuria, Frequency Musculoskeletal: Denies: Back pain, Extremity Pain Skin: Denies: Rash, Wounds Neurological: Denies: Headache, Weakness, Numbness Physical Exam Vital Signs/Narrative: Vital Signs Temp Pulse Resp BP Pulse Ox 05/18/19 22:50 93 05/18/19 22:48 97.5 F L 94 18 107/69 92 Inital Vital Signs reviewed: Yes General: Well nourished, Well developed, No Acute Distress Head: Normocephalic, Atraumatic Eyes: Perrl, EOMI ENT: Moist mucous membranes, No rhinorrhea Neck: Supple, Nontender Cardiovascular: Regular rate, Regular rhythm, No murmurs Respiratory: No distress, CTA bilaterally, Chest nontender, Diminished. Negative for: Rales, Rhonchi, Wheezing, Decreased Air Movement Abdomen: Soft, Nontender, Nondistended, Normal bowel sounds Back: Nontender, Normal Inspection Extremities: Nontender, No edema Skin: Normal color, No rash Neurological: Alert, Oriented x3, Cranial nerves II-XII grossly intact, Normal Strength, Normal Sensation Psychological: Normal affect, Normal Mood Diagnostic/Tx/Re-eval Chest X-Ray - ED: 1 View, Read by ED Physician, Read by Radiologist, No Acute Disease Clinical Impression(s) from Imaging Studies Chest X-Ray 05/18/19 23:23 IMPRESSION: Patchy appearance of the left lower lobe. Consider pneumonia. Electronically Signed: Brittanie Watson MD at 23:43 EST Tel , Service support , Chest CTA 05/19/19 00:35 IMPRESSION: Negative CTA chest examination, without a demonstrated pulmonary embolism or arterial dissection. Borderline mediastinal and hilar lymphadenopathy. Mild posterior lower lobe atelectasis, otherwise no acute cardiopulmonary process noted. Specifically, no pneumonia or pleural effusion seen. No pneumothorax. Mild emphysematous changes as described above. Electronically Signed: Sarah Akers MD at 2:09 EST , Service support , Laboratory Data 01/05/19/19 05/19/19 00:05 00:05 00:05 WBC 8.5 RBC 4.67 Hgb 13.6 Hct 40.8 MCV 87.4 MCH 29.1 MCHC 33.3 RDW Std Deviation 48.7 H RDW Coeff of Franca 15.2 H Plt Count 300 MPV 9.0 Immature Gran % (Auto) 0.600 Neut % (Auto) 44.7 L Lymph % (Auto) 42.7 H [place] % (Auto) 9.5 Eos % (Auto) 1.9 Baso % (Auto) 0.6 Absolute Neuts (auto) 3.8 Absolute Lymphs (auto) 3.63 Nucleated RBC % 0 PT 13.7 INR 1.1 D-Dimer Quant (PE/DVT) 0.97 H* Sodium 135 L Potassium 3.7 Chloride 103 Carbon Dioxide 25.0 Anion Gap 7 BUN 9 Creatinine 0.78 Estim Creat Clear Calc 108.27 Est GFR (MDRD) Af Amer 133 Est GFR (MDRD) Non-Af 110 BUN/Creatinine Ratio 11.5 Glucose 104 Lactic Acid Calcium 8.7 Troponin I < 0.015 Urine Color Urine Clarity Urine pH Ur Specific [place] Urine Protein Urine Glucose (UA) Urine Ketones Urine Occult Blood Urine Nitrite Urine Bilirubin Urine Urobilinogen Ur Leukocyte Esterase Urine RBC Urine WBC Ur Squamous Epith Cells Urine Bacteria Urine Mucus Ethyl Alcohol 05/19/19 05/19/19 05/19/19 00:05 01:30 01:50 WBC RBC Hgb Hct MCV MCH MCHC RDW Std Deviation RDW Coeff of Franca Plt Count MPV Immature Gran % (Auto) Neut % (Auto) Lymph % (Auto) [place] % (Auto) Eos % (Auto) Baso % (Auto) Absolute Neuts (auto) Absolute Lymphs (auto) Nucleated RBC % PT INR D-Dimer Quant (PE/DVT) Sodium Potassium Chloride Carbon Dioxide Anion Gap BUN Creatinine Estim Creat Clear Calc Est GFR (MDRD) Af Amer Est GFR (MDRD) Non-Af BUN/Creatinine Ratio Glucose Lactic Acid 1.6 Calcium Troponin I Urine Color Yellow Urine Clarity Clear Urine pH 6.0 Ur Specific [place] 1.010 Urine Protein Negative Urine Glucose (UA) Normal Urine Ketones Negative Urine Occult Blood Negative Urine Nitrite Negative Urine Bilirubin Negative Urine Urobilinogen Normal Ur Leukocyte Esterase Negative Urine RBC 0 SEEN Urine WBC 0 SEEN Ur Squamous Epith Cells 0 SEEN Urine Bacteria 0 SEEN Urine Mucus 0 SEEN Ethyl Alcohol 197.0 - Rhythm Strip Rhythm Strip: Sinus Rhythm Rate: 85 Ectopy: None - EKG Initial EKG Interpretation: Sinus Rhythm, - - Normal sinus rhythm at a rate of 85 ME interval 140 QRS 98 QTc [address] segments Compared to prior EKG on 04/29/2019 patient is no longer tachycardic but otherwise has no changes - Medical Decision Making Patient is evaluated for syncopal episode. He does not have any prodrome with it. Patient has been seen and admitted for similar presentations in the past. While he is in the ER he does become hypotensive. He is otherwise asymptomatic with this. His lactate is normal. He is given a total of 2 L of IV fluids. He does have some improvement with it. In addition while patient is sleeping he does become hypoxic. His O2 saturation goes down to 86%. Patient does not wear oxygen at home. With his hypoxia and recent surgery I did check a d-dimer which was elevated. CTA of the chest was subsequently performed which did not show any acute cardiothoracic process to explain his symptoms including PE, pleural effusion, dissection or pneumonia. Other notable findings as patient's alcohol level which is elevated. Clinically patient is not intoxicated and he likely lives at this level. Because of his hypotension and hypoxia requiring oxygen supplementation he will be admitted for further evaluation of this. Patient is agreeable with this plan. He stable for the general medical floor at time of disposition. Patient does not have an obvious infection and I do not suspect sepsis. He is not started on antibiotics. ED Disposition - Plan for ED Patient: Disposition: Acute Care Hospital [facility] Diagnosis: Alcohol intoxication, Syncope, Hypotension, Hypoxia Referrals: Stuart Bacon MD [Primary Care Provider] -
--- NOTE | 2019-05-18 23:23 | RAD_ITS ---
STUDY: X-RAY CHEST REASON FOR EXAM: Male, 54 years old. HAD A SYNCOPAL EPISODE TONIGHT. TECHNIQUE: Single AP portable view of the chest. COMPARISON: April 04, 2019 test x-ray. FINDINGS: There is a patchy appearance of the left lung base greater than prior study. There is no demonstrated pleural abnormality. Normal size heart. Normal mediastinum and jazmine. Normal visualized pulmonary arteries. Normal visualized aortic arch and descending thoracic aorta. There are diffuse degenerative changes of the visualized thoracic spine. Normal visualized ribs, clavicles, and shoulders. There is no demonstrated abnormality of the visualized soft tissue structures of the upper abdomen. RAD/Chest 1 View (Portable) IMPRESSION: Patchy appearance of the left lower lobe. Consider pneumonia. Electronically Signed: Brittanie Watson MD at 23:43 EST Tel , Service support ,
[2019-05-19] VITALS (17 sets, daily range): BP systolic 76–176; BP diastolic 49–103; PULSE 78–108; RESP 16–94; TEMP 36.5–36.7; O2SAT 3–98; BMI 29.9
[2019-05-19 00:13] LABS: Absolute Lymphocyte Count 3.63 X10^3/uL (0.83-4.51); Absolute Neutrophil Count 3.8 X10^3/uL (2.0-7.7); Basophil# 0.05 X10^3/uL; Basophil% 0.6 % (0-1); Eosinophil# 0.16 X10^3/uL; Eosinophils% 1.9 % (0-5); Hematocrit 40.8 % (40-54); Hemoglobin 13.6 g/dL (13.0-16.5); Lymphocyte # 3.63 X10^3/ul (4.0); Lymphocyte % 42.7 % (19-41); Mean Corp Hgb Conc 33.3 g/dL (32-36); Mean Corpuscular Hgb 29.1 pg (27.0-32.0); Mean Corpuscular Volume 87.4 fL (80-94); Monocyte# 0.81 X10^3/uL; Monocyte% 9.5 % (0-10); NRBC Flagged by Analyzer 0 % (0-5); Neutrophil % 44.7 % (47-70); Platelet Count 300 K/mm3 (150-450); RBC Distribution Width CV 15.2 % (11.6-14.6); RBC Distribution Width SD 48.7 fl (35.1-43.9); Red Blood Count 4.67 M/mm3 (4.6-6.2); White Blood Count 8.5 K/mm3 (4.4-11.0)
[2019-05-19] MEDS: 0.9% Normal Saline 1,000 ML 1000 ML IV (00:15)
[2019-05-19 00:25] LABS: International Normalized Ratio 1.1; Prothrombin Time (Protime)PT. 13.7 SECONDS (11.7-14.9)
[2019-05-19 00:33] LABS: D-Dimer Quantitative (DVT/PE) 0.97 FEU/ug/m (0.27-0.49)
[2019-05-19 00:35] LABS: Anion Gap 7 (5-15); BUN 9 mg/dL (7-18); BUN/Creat Ratio 11.5 RATIO (10-20); Calcium,Total 8.7 mg/dL (8.5-10.1); Chloride 103 mmol/L (98-107); Creatinine, Serum 0.78 mg/dL (0.70-1.30); EST Glomerular Filtration Rate 110 mL/min (>60); Est Glom Filt Rate - Afr Amer 133 mL/min (>60); Estimated Creatinine Clearance 108.27 ml/min; Glucose 104 mg/dL (74-106); Potassium 3.7 mmol/L (3.5-5.1); Sodium Level 135 mmol/L (136-145)
--- NOTE | 2019-05-19 00:35 | CT_ITS ---
STUDY: CTA CHEST REASON FOR EXAM: Male, 54 years old. SYNCOPE, COUGH, ELEVATED D-DIMER, ETOH, HX SEIZURES, HTN RADIATION DOSAGE (If Supplied By Facility): CTDIvol = ( 14.54 ) mGy, DLP = ( 498.41 ) mGycm TECHNIQUE: The examination was performed with the intravenous administration of IV 100mL [id number]-300. Post-processing of the angiographic images was performed, with multiplanar reformation and 3D reconstruction. Individualized dose optimization techniques were used for this CT. COMPARISON: 07/10/2018. FINDINGS: Normal enhancement of the main pulmonary artery and right and left pulmonary arteries. Normal enhancement of the bilateral peripheral pulmonary arteries. There is no demonstrated pulmonary embolism. There is atherosclerotic calcification of the aortic arch with tortuosity. There is no demonstrated aortic dissection. Heart is of normal size with coronary artery calcifications. There are multiple lymph nodes borderline enlarged within the mediastinum, largest seen at the level of the subcarinal region measuring 2.0 x 1.5 cm. Small lymph nodes within the aortopulmonary window and surrounding the trachea, averaging 1.5 x 1.2 cm. Small bilateral hilar lymph nodes, largest averaging approximately 1.8 x 1.2 cm and seen on the right. Otherwise normal mediastinum and hilar regions with no distinct mass. Normal visualized trachea and bronchi. The lungs are well expanded. There is bilateral lower lobe posterior atelectasis. There is mild bilateral thickening of the bronchi which may indicate bronchitis versus early vascular congestion. There are small subpleural cystic changes posteriorly along the lung apices consistent with early subpleural emphysema. Normal pleura. Normal chest wall structures. Mild compression fracture of T12, likely old given morphology. Diffuse osteopenia along with mild degenerative disease. Nodular margins of the liver which may indicate early cirrhosis. Remainder of the upper abdominal structures unremarkable. CT/CTA Chest W/WO Contrast IMPRESSION: Negative CTA chest examination, without a demonstrated pulmonary embolism or arterial dissection. Borderline mediastinal and hilar lymphadenopathy. Mild posterior lower lobe atelectasis, otherwise no acute cardiopulmonary process noted. Specifically, no pneumonia or pleural effusion seen. No pneumothorax. Mild emphysematous changes as described above. Electronically Signed: Sarah Akers MD at 2:09 EST , Service support ,
[2019-05-19 01:34] LABS: Bacteria 0 SEEN /hpf (None Seen); Color, Urine Yellow (Yellow); Glucose, Dipstick Normal (Normal); Ketone-Dipstick Negative (Negative); Leukocyte Esterase-Dipstick Negative /ul (Negative); Mucous, Urine 0 SEEN /hpf (<or=2+); Nitrite-Dipstick Negative (Negative); Occult Blood-Urine Negative /ul (Negative); Protein-Dipstick Negative (Negative); Red Blood Cells-Urine 0 SEEN /hpf (0-5); Squamous Epithelial Cells - UA 0 SEEN /hpf (0-5); Urine Bilirubin Dipstick Negative (Negative); Urine Clarity Clear (Clear); Urine Urobilinogen Normal (Normal); White Blood Cells 0 SEEN /hpf (0-5)
[2019-05-19] MEDS: 0.9% Normal Saline 1,000 ML 999 ML IV (02:18)
[2019-05-19 02:27] LABS: Lactic Acid 1.6 mmol/L (0.4-1.9)
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
[2019-05-19] MEDS: 0.9% Normal Saline 1,000 ML 100 ML IV (04:18)
[2019-05-19 04:33] LABS: Absolute Lymphocyte Count 3.17 X10^3/uL (0.83-4.51); Absolute Neutrophil Count 2.4 X10^3/uL (2.0-7.7); Basophil# 0.04 X10^3/uL; Basophil% 0.6 % (0-1); Eosinophil# 0.11 X10^3/uL; Eosinophils% 1.8 % (0-5); Hematocrit 39.9 % (40-54); Hemoglobin 12.7 g/dL (13.0-16.5); Lymphocyte # 3.17 X10^3/ul (4.0); Lymphocyte % 50.7 % (19-41); Mean Corp Hgb Conc 31.8 g/dL (32-36); Mean Corpuscular Hgb 28.1 pg (27.0-32.0); Mean Corpuscular Volume 88.3 fL (80-94); Mean Platelet Vol. 9.1 fl (6.2-12.0); Monocyte# 0.49 X10^3/uL; Monocyte% 7.8 % (0-10); NRBC Flagged by Analyzer 0 % (0-5); Neutrophil # 2.41 X10^3/uL (2.7-7.7); Neutrophil % 38.6 % (47-70); Platelet Count 278 K/mm3 (150-450); RBC Distribution Width CV 15.1 % (11.6-14.6); RBC Distribution Width SD 49.1 fl (35.1-43.9); Red Blood Count 4.52 M/mm3 (4.6-6.2); White Blood Count 6.3 K/mm3 (4.4-11.0)
[2019-05-19] MEDS: CLARIFY ORDER 1 EACH NOTE (04:50)
[2019-05-19 04:51] LABS: Anion Gap 5 (5-15); BUN 7 mg/dL (7-18); Calcium,Total 7.9 mg/dL (8.5-10.1); Chloride 110 mmol/L (98-107); EST Glomerular Filtration Rate 124 mL/min (>60); Est Glom Filt Rate - Afr Amer 150 mL/min (>60); Estimated Creatinine Clearance 124.56 ml/min; Glucose 87 mg/dL (74-106); Magnesium 2.1 mg/dL (1.6-2.6); Potassium 3.7 mmol/L (3.5-5.1); Sodium Level 139 mmol/L (136-145)
--- NOTE | 2019-05-19 07:43 | EKG12_ITS ---
Test Reason : Blood Pressure : / mmHG Vent. Rate : 098 BPM Atrial Rate : 098 BPM P-R Int : 144 ms QRS Dur : 090 ms QT Int : 362 ms P-R-T Axes : 061 065 072 degrees QTc Int : 462 ms Normal sinus rhythm Low voltage QRS Septal infarct , age undetermined Abnormal ECG When compared with ECG of 18-MAY-2019 23:34, MANUAL COMPARISON REQUIRED, DATA IS UNCONFIRMED Confirmed by DESTINEE FERRARI, DUNCAN ([id number]), contract technician STARR RIVERA ([id number]) on 05/21/2019 2:40:30 PM Referred By: RUBEN Confirmed By:SHERICE FELIPE MD
[2019-05-19] MEDS: Aspirin E.C. 81 MG Tablet PO (08:50)
[2019-05-19] MEDS: Enoxaparin 40 MG/0.4 ML Syringe SC (08:50)
[2019-05-19] MEDS: Multivitamins,Therapeutic Tablet 1 TABLET PO (08:50)
[2019-05-19] MEDS: Folic Acid 1 MG Tablet PO (08:50)
[2019-05-19] MEDS: Thiamine Hydrochloride 100 MG Tablet PO (08:50)
[2019-05-19] MEDS: levETIRAcetam 1,000 MG Tablet 1000 MG PO (08:50)
[2019-05-19] MEDS: Pantoprazole Sodium 40 MG Tablet PO (08:51)
[2019-05-19] MEDS: Paroxetine 20 MG Tablet PO (08:51)
[2019-05-19] MEDS: Mupirocin Ointment 22gm Tube 1 APPLIC TOPICAL (08:51)
[2019-05-19] MEDS: Triamcinolone Ointment 1 APPLIC TUBE TOPICAL (08:52)
[2019-05-19] MEDS: Acetaminophen 325 MG Tablet 650 MG PO (09:59)
--- NOTE | 2019-05-19 10:00 | CASEMGMT ---
RUCHI is familiar with patient from past admissions. RUCHI met with patient, introduced self and role at [facility]. 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 SW asked him if he sees anyone for alcohol and he said, I don't have an alcohol problem. He said he drinks a couple days and then doesn't drink. He said it depends what game is on tv. He is still at [facility] and plans to return there at discharge. He denies any needs. Concha QUILES MSW
--- NOTE | 2019-05-19 12:26 | DCINST_ITS ---
- Discharge Diagnoses Current Active Problems: Current Active and Chronic Problems (Last Reviewed 05/19/19 @ 04:03 by Palomo Purdy MD) Hypoxia (Acute) Syncope (Acute) Alcohol intoxication (Acute) Hypotension (Acute) You will use the following diet at home:: Cardiac Discharge Activity: Return to Normal Activity Call your doctor if you observe: Shortness of breath, Dizziness, Fainting spells, Chest pain Allergies/Adverse Reactions: Allergies ANTIBIOTIC OINTMENT Adverse Reaction (Uncoded 05/13/19 10:15) Hives Medications to take at Discharge Meclizine HCl [Antivert] 12.5 mg PO BID PRN PRN 09/07/16 Albuterol Inhaler [Ventolin Hfa] 2 puff INHALATION Q6H PRN PRN 12/10/16 paroxetine HCl 20 mg tablet 20 mg PO DAILY 08/14/18 Multivitamin [Daily Multiple Vitamin] 1 ea PO DAILY 09/02/18 levETIRAcetam tablet [Keppra tablet] 1,000 mg PO BID 09/02/18 omeprazole 40 mg capsule,delayed release 40 mg PO DAILY 02/25/19 Amlodipine Besylate/Benazepril [Amlodipine-Benazepril 10-20 mg] 1 ea PO DAILY 04/04/19 Cilostazol 50 mg PO BID 04/04/19 Carvedilol [Coreg (Beta Sunita)] 12.5 mg PO BID 04/29/19 Aspirin [Aspir 81] 81 mg PO DAILY #180 tablet. 05/03/19 mupirocin 2 % topical ointment 1 applic TOPICAL BID 05/13/19 thiamine HCl (vitamin B1) 50 mg tablet 50 mg PO DAILY 05/13/19 triamcinolone acetonide 0.1 % topical cream 1 applic TOPICAL DAILY 05/13/19 Baclofen [Lioresal] 5 tab PO TID PRN 05/19/19 Primary Care Physician: Stuart Bacon MD [Primary Care Provider] - Please follow up with your Primary Care Physician in: 3-5 Days Test Results: Test results from this visit will be discussed in further detail at your follow- up appointment, if applicable. Proposed Discharge Date: 05/19/19
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
[2019-05-19] MEDS: Carvedilol 12.5 MG Tablet PO (14:46)
[2019-05-19] MEDS: amLODIPine 10 MG Tablet PO (14:46)
--- NOTE | 2019-05-19 14:47 | PHA.DC.MR ---
Pharmacy Service has performed discharge medication reconciliation for this patient. Home Medications Meclizine HCl [Antivert] 12.5 mg PO BID PRN PRN 09/07/16 Albuterol Inhaler [Ventolin Hfa] 2 puff INHALATION Q6H PRN PRN 12/10/16 paroxetine HCl 20 mg tablet 20 mg PO DAILY 08/14/18 Multivitamin [Daily Multiple Vitamin] 1 ea PO DAILY 09/02/18 levETIRAcetam tablet [Keppra tablet] 1,000 mg PO BID 09/02/18 omeprazole 40 mg capsule,delayed release 40 mg PO DAILY 02/25/19 Amlodipine Besylate/Benazepril [Amlodipine-Benazepril 10-20 mg] 1 ea PO DAILY 04/04/19 Cilostazol 50 mg PO BID 04/04/19 Carvedilol [Coreg (Beta Sunita)] 12.5 mg PO BID 04/29/19 Aspirin [Aspir 81] 81 mg PO DAILY #180 tablet. 05/03/19 mupirocin 2 % topical ointment 1 applic TOPICAL BID 05/13/19 thiamine HCl (vitamin B1) 50 mg tablet 50 mg PO DAILY 05/13/19 triamcinolone acetonide 0.1 % topical cream 1 applic TOPICAL DAILY 05/13/19 Baclofen [Lioresal] 5 tab PO TID PRN 05/19/19 The patient's discharge medication list was reviewed for discrepancies and discrepancies were resolved.
== END 2019-05-19 12:28 | disposition home or self-care (01) ==
LOC: ED 23:20 → PCU 05-19 03:44
PROVIDERS: Admitting Provider Hospitalist; Emergency Provider Emergency Medicine; PCP Family Medicine
DX: I95.1 Orthostatic hypotension (principal); R94.31 Abnormal electrocardiogram [ECG] [EKG]; G40.909 Epilepsy, unspecified, not intractable, without status epilepticus; I10 Essential (primary) hypertension; K21.9 Gastro-esophageal reflux disease without esophagitis; F10.229 Alcohol dependence with intoxication, unspecified; Y90.6 Blood alcohol level of 120-199 mg/100 ml; I73.9 Peripheral vascular disease, unspecified; E78.5 Hyperlipidemia, unspecified; F17.200 Nicotine dependence, unspecified, uncomplicated; R09.02 Hypoxemia; Z79.899 Other long term (current) drug therapy; Z79.82 Long term (current) use of aspirin; Z59.0 Homelessness; Z91.19 Patient's noncompliance with other medical treatment and regimen; F41.9 Anxiety disorder, unspecified; R16.0 Hepatomegaly, not elsewhere classified; F32.9 Major depressive disorder, single episode, unspecified
CPT/HCPCS: 36415; 71045; 71275; 80048; 80320; 81001; 83605; 83735; 84484; 85025; 85379; 85610; 87040; 93005; 96360; 96361; 96372; 97162; 97165; 99218; 99251; 99285; 99406; J7030; J7040; Q9967; A4216; G0378; G0463; G0480

== ENCOUNTER → 2019-05-27 10:52 | Outpatient (CLI) | payer MEDICAID, SELFPAY ==
[2019-05-11 14:18] VITALS: BMI 30.1
[2019-05-19 03:53] VITALS: BMI 29.9
--- NOTE | 2019-05-27 10:53 | ART_ITS ---
Reason For Study: PAOD Procedure A bilateral lower extremity continuous wave Doppler with analog waveform analysis,segmental pressures,and ankle brachial indexes without exercise. Left Segmental Pressures Left brachial= 121mmHg. Left posterior tibial artery = 131mmHg. Left dorsalis pedis artery = 120mmHg. Left digit = 96 mmHg. The left dorsalis pedis waveforms are triphasic. The left posterior tibial artery waveforms are triphasic. Right Segmental Pressures Right brachial= 113mmHg. Right posterior tibial artery = 124mmHg. Right dorsalis pedis artery = 134mmHg. Right digit = 118 mmHg. The right dorsalis pedis waveforms are triphasic. The right posterior tibial artery waveforms are triphasic. Indices The right ankle brachial index by the dorsalis pedis is 1.11. The right ankle brachial index by the posterior tibial artery is 1.02. The right digital-brachial index is 0.98. The left ankle brachial index by the dorsalis pedis is 0.99. The left ankle brachial index by the posterior tibial artery is 1.08. The left digital-brachial index is 0.79. Interpretation Summary Normal bilateral lower extremity resting ankle brachial indices and triphasic DP and PT waveforms Digital brachial indices are normal bilaterally but waveforms are notably abnormal consistent with temperature affect or small vessel disease. Ordering Physician: Jamal Garvin Referring Physician: MD Jordi Stuart Performed By: Tiffany Perez RVT
== END ==
PROVIDERS: PCP Family Medicine; Referring Provider Surgery; Visit Provider Surgery
DX: I77.9 Disorder of arteries and arterioles, unspecified (principal); Z98.890 Other specified postprocedural states
CPT/HCPCS: 93923

== ENCOUNTER 2019-07-05 14:45 | Emergency (ER) | payer MEDICAID, SELFPAY ==
[2019-05-19 03:53] VITALS: BMI 29.9
[2019-07-05 14:46] VITALS: BP 115/66; PULSE 94; RESP 18; TEMP 36.6; O2SAT 94; BMI 31.4
--- NOTE | 2019-07-05 15:08 | CT_ITS ---
STUDY: CT ABDOMEN AND PELVIS WITH CONTRAST REASON FOR EXAM: Male, 54 years old. LEFT FLANK PAIN X 4-5 MONTHS -- +ETOH RADIATION DOSAGE (If Supplied By Facility): CTDIvol = ( 15.46 ) mGy, DLP = ( 1109.39 ) mGycm TECHNIQUE: Transaxial images were obtained from the dome of the diaphragm to the symphysis pubis without oral contrast. IV 100mL Isovue-300 was administered. Sagittal and coronal images were reconstructed. Individualized dose optimization techniques were used for this CT. COMPARISON: None. FINDINGS: Limited views through the lower chest show a nodular pattern of inflammatory process in the visualized lower right lung not present previously. One nodule measures as much as 1.3 cm. Since the findings were not present on the CT scan of 05/19/2019, malignancy is unlikely and findings are most likely inflammatory. However recommend diagnostic CT of the chest. There is decreased attenuation of the liver consistent with steatosis. Marked hepatomegaly. Normal gallbladder and extrahepatic biliary system. Normal spleen. Normal pancreas. Normal bilateral adrenal glands. Normal right kidney. Normal left kidney. No definite renal or ureteral stones are seen. There is no hydronephrosis on either side. Evaluation of the GI tract is limited by absence of oral contrast. Cannot exclude stomach wall thickening. No dilated loops of bowel or evidence for obstruction. Cannot exclude segmental thickening of the mcdaniel of the small or large bowel. Cannot exclude enteritis or colitis. Moderate diffuse fecal retention. Diverticulosis without definite diverticulitis. Appendix within normal limits. There is diffuse atherosclerotic calcification of the abdominal aorta, without a demonstrated aneurysm. There are bilateral iliac artery stents. Normal inferior vena cava. Normal retroperitoneum. Normal urinary bladder. Normal abdominal wall. There are diffuse degenerative changes of the visualized lumbar spine. Mild compression fracture of T12, stable. CT/Abdomen/Pelvis W IV Cont ONLY IMPRESSION: No definite acute abnormality in the abdomen and pelvis. Marked fatty liver and hepatomegaly. Probable inflammatory processes of the lower right lung. Diagnostic CT of the chest with contrast recommended. Electronically Signed: Willian Prasad MD at 16:34 EDT , Service support ,
--- NOTE | 2019-07-05 15:10 | ED.DCSUM_ITS ---
- ER Visit Summary Date of Service: 07/05/19 Chief Complaint: Left flank pain History of Present Illness: The patient is a 54 M history of hypertension, prior traumatic brain injury, prior PEG tube, prior trach, carotid and femoral stents. Patient smokes and drinks. States he has had left flank pain for 4 to 5 months. Daily. Denies any dysuria or hematuria. No history of stones. No fever. No nausea, vomiting or diarrhea. Physical Examination: Middle-aged male no acute distress vital signs stable afebrile. Pulse ox 94% on room air no signs hypoxia. H EENT exam unremarkable. Smell of tobacco. Neck nontender. No lymphadenopathy. Lungs clear to auscultation bilaterally. Heart regular rhythm no murmur. Abdomen soft. Nondistended no peritoneal signs. No signs of trauma. glass cut off tender left lateral ribs. But no ecchymosis or bruising. No subcu air or crepitance. Extremities moves all 4. Neurovascular intact. Calves are nontender without edema or cords. Neurologically she is awake alert with no focal neurologic deficits. Test Results: BC white count of 5. Hemoglobin 13. Electrolytes unremarkable normal creatinine gap. Liver enzymes normal. UA negative. EKG sinus rhythm rate 89 no acute signs of NV or ischemia. Chest x-ray no acute abnormality read both by myself and the radiologist. Normal cardiac silhouette mediastinum. CT abdomen pelvis with IV contrast shows no acute abnormality. Fatty liver. Read by the radiologist and reviewed by me. Emergency Department Course and Treatment: Patient complaining of left flank pain. Exam is based unremarkable other than rib tenderness. But there is no obvious broken ribs on his x-rays. Repeat exam is doing well at 2100 will be discharged home. Treatment Plan: Tylenol and/or Motrin for pain. Follow-up with his primary care physician. Disposition: Discharge Impression: Left flank pain of uncertain etiology suspect musculoskeletal etiology This note was generated with [employer] dictation software. It may contain incorrect words, spelling, and punctuation that were not noted in review of the chart prior to signing ED Disposition - Plan for ED Patient: Referrals: Stuart Bacon MD [Primary Care Provider] -
[2019-07-05 15:22] LABS: Absolute Lymphocyte Count 1.58 X10^3/uL (0.83-4.51); Absolute Neutrophil Count 3.2 X10^3/uL (2.0-7.7); Basophil# 0.04 X10^3/uL; Basophil% 0.7 % (0-1); Eosinophil# 0.08 X10^3/uL; Eosinophils% 1.4 % (0-5); Hematocrit 41.4 % (40-54); Hemoglobin 13.3 g/dL (13.0-16.5); Lymphocyte # 1.58 X10^3/ul (4.0); Lymphocyte % 27.2 % (19-41); Mean Corp Hgb Conc 32.1 g/dL (32-36); Mean Corpuscular Hgb 28.1 pg (27.0-32.0); Mean Corpuscular Volume 87.3 fL (80-94); Mean Platelet Vol. 8.9 fl (6.2-12.0); Monocyte# 0.89 X10^3/uL; Monocyte% 15.3 % (0-10); NRBC Flagged by Analyzer 0 % (0-5); Neutrophil # 3.16 X10^3/uL (2.7-7.7); Neutrophil % 54.5 % (47-70); Platelet Count 113 K/mm3 (150-450); RBC Distribution Width SD 50.8 fl (35.1-43.9); Red Blood Count 4.74 M/mm3 (4.6-6.2); White Blood Count 5.8 K/mm3 (4.4-11.0)
--- NOTE | 2019-07-05 15:27 | EKG12_ITS ---
Test Reason : Blood Pressure : / mmHG Vent. Rate : 089 BPM Atrial Rate : 089 BPM P-R Int : 156 ms QRS Dur : 082 ms QT Int : 380 ms P-R-T Axes : 046 051 056 degrees QTc Int : 462 ms Normal sinus rhythm Low voltage QRS (Limb Leads) Septal infarct , age undetermined Abnormal ECG Confirmed by CATHIE FERRARI, CARLA ([id number]), general expeditor VIRI WAN ([id number]) on 07/06/2019 2:12:53 PM Referred By: HOLGER Confirmed By:CARLA BRAND MD
[2019-07-05 15:36] LABS: ALB/GLOB Ratio 0.6 RATIO (0.9-2.4); AST(SGOT) 42 U/L (15-37); Alanine Aminotransfer ALT/SGPT 24 U/L (16-61); Albumin, Serum 2.9 g/dL (3.2-5.0); Alkaline Phosphatase 92 U/L (45-117); Anion Gap 5 (5-15); BUN 4 mg/dL (7-18); BUN/Creat Ratio 5.7 RATIO (10-20); Calcium,Total 8.3 mg/dL (8.5-10.1); Chloride 104 mmol/L (98-107); EST Glomerular Filtration Rate 125 mL/min (>60); Est Glom Filt Rate - Afr Amer 151 mL/min (>60); Estimated Creatinine Clearance 120.64 ml/min; Globulin 4.8 g/dL (2.2-4.2); Glucose 119 mg/dL (74-106); Potassium 3.9 mmol/L (3.5-5.1); Protein, Total 7.7 g/dL (6.4-8.2); Sodium Level 135 mmol/L (136-145)
--- NOTE | 2019-07-05 16:00 | RAD_ITS ---
STUDY: X-RAY CHEST REASON FOR EXAM: Male, 54 years old. LEFT FLANK PAIN. TECHNIQUE: PA and lateral views of the chest. COMPARISON: May 18, 2019 FINDINGS: The interstitium in the bilateral lower lobes appears slightly prominent. The remaining lung coto are clear. No consolidation is seen. There is no demonstrated pleural abnormality. Normal size heart. Stable mediastinal and osseous structures. RAD/Chest PA and Lateral IMPRESSION: The interstitium in the bilateral lower lobes appears slightly prominent. The remaining lung coto are clear. No consolidation is seen. Electronically Signed: Shay Carroll MD at 17:00 EDT , Service support ,
[2019-07-05 17:00] VITALS: PULSE 90; RESP 18; O2SAT 96
[2019-07-05 17:15] LABS: Bacteria 0 SEEN /hpf (None Seen); Mucous, Urine 0 SEEN /hpf (<or=2+); Red Blood Cells-Urine 0 SEEN /hpf (0-5); Squamous Epithelial Cells - UA 0 SEEN /hpf (0-5); White Blood Cells 0 SEEN /hpf (0-5)
[2019-07-05 17:20] LABS: Color, Urine Yellow (Yellow); Glucose, Dipstick Normal (Normal); Ketone-Dipstick Negative (Negative); Leukocyte Esterase-Dipstick Negative /ul (Negative); Nitrite-Dipstick Negative (Negative); Occult Blood-Urine Negative /ul (Negative); Protein-Dipstick 15 mg/dl (Negative); Specific Gravity, Urine 1.005 (1.002-1.030); Urine Bilirubin Dipstick Negative (Negative); Urine Clarity Clear (Clear); Urine Urobilinogen Normal (Normal)
--- NOTE | 2019-07-05 17:41 | NURSING ---
ICU 2 [facility]
[2019-07-05 20:00] VITALS: BP 108/73; PULSE 101; RESP 16; O2SAT 89
--- NOTE | 2019-07-05 21:01 | ED.DEP ---
ED Disposition - Plan for ED Patient: Disposition: Home or Assisted Living Instructions: FLANK PAIN, Uncertain Cause Referrals: Stuart Bacon MD [Primary Care Provider] - 3-5 Days if not improving Additional Instructions: Tests are unremarkable. There is no specific cause for your pain. Tylenol and/or Motrin for pain. Follow-up with your doctor.
[2019-07-05 21:07] VITALS: BP 122/94; PULSE 111; O2SAT 95
== END 2019-07-05 21:09 | disposition home or self-care (01) ==
PROVIDERS: Emergency Provider Emergency Medicine; PCP Family Medicine
DX: R10.9 Unspecified abdominal pain (principal); Z72.0 Tobacco use
CPT/HCPCS: 71046; 74177; 80053; 81001; 85025; 93005; 99284; J7030; Q9967; A4216

== ENCOUNTER 2019-10-01 17:15 | Emergency (ER) | payer MEDICAID, SELFPAY ==
[2019-10-01] VITALS (7 sets, daily range): BP systolic 76–103; BP diastolic 52–76; PULSE 83–108; RESP 15–21; TEMP 36.9; O2SAT 92–97; BMI 30.9
--- NOTE | 2019-10-01 17:57 | CT_ITS ---
STUDY: CT BRAIN WITHOUT CONTRAST REASON FOR EXAM: Male, 54 years old. Dizziness RADIATION DOSAGE (If Supplied By Facility): CTDIvol = ( 44.99 ) mGy, DLP = ( 779.24 ) mGycm TECHNIQUE: Transaxial CT imaging of the brain was performed without administration of intravenous contrast material. Individualized dose optimization techniques were used for this CT. COMPARISON: 04/25/2019 FINDINGS: There is no acute bleed or infarct. There is stable mild chronic ischemic changes. The ventricles are normal in configuration. There is no hydrocephalus. The visualized paranasal sinuses are clear. The mastoid air cells are well aerated. There is no skull fracture. CT/Brain/Head without Contrast IMPRESSION: No acute intracranial abnormality. Stable mild chronic ischemic changes. Electronically Signed: Cuco Schneider, at 18:31 EDT Tel , Service support ,
--- NOTE | 2019-10-01 17:58 | EKG12_ITS ---
Test Reason : Blood Pressure : / mmHG Vent. Rate : 078 BPM Atrial Rate : 078 BPM P-R Int : 148 ms QRS Dur : 094 ms QT Int : 416 ms P-R-T Axes : 020 055 055 degrees QTc Int : 474 ms Normal sinus rhythm Low voltage QRS Septal infarct , age undetermined Abnormal ECG Confirmed by JOSE DANIEL FERRARI, FERNANDEZ ([id number]), restaurant expeditor LETHA MITCHELL ([id number]) on 10/04/2019 1:31:53 PM Referred By: NICHOLE Confirmed By:FERNANDEZ SKY MD
[2019-10-01] MEDS: 0.9% Normal Saline 1,000 ML 999 ML IV ×2 (18:13→20:17)
[2019-10-01 18:23] LABS: Absolute Lymphocyte Count 1.89 X10^3/uL (0.83-4.51); Absolute Neutrophil Count 2.9 X10^3/uL (2.0-7.7); Basophil# 0.05 X10^3/uL; Basophil% 0.9 % (0-1); Eosinophil# 0.06 X10^3/uL; Hematocrit 39.6 % (40-54); Lymphocyte # 1.89 X10^3/ul (4.0); Lymphocyte % 32.9 % (19-41); Mean Corp Hgb Conc 32.8 g/dL (32-36); Mean Corpuscular Volume 91.5 fL (80-94); Mean Platelet Vol. 10.8 fl (6.2-12.0); Monocyte# 0.86 X10^3/uL; NRBC Flagged by Analyzer 0 % (0-5); Neutrophil # 2.88 X10^3/uL (2.7-7.7); Platelet Count 124 K/mm3 (150-450); RBC Distribution Width CV 17.1 % (11.6-14.6); RBC Distribution Width SD 57.4 fl (35.1-43.9); Red Blood Count 4.33 M/mm3 (4.6-6.2); White Blood Count 5.8 K/mm3 (4.4-11.0)
--- NOTE | 2019-10-01 18:40 | ED.DCSUM_ITS ---
- ER Visit Summary Date of Service: 10/01/19 Chief Complaint: Syncope History of Present Illness: The patient is a 54 M presenting after syncopal episode. Patient states he was drinking earlier today. He states he had a few beers. He was then out in the heat walking in the parking lot of a grocery store. He states he felt very dizzy and then passed out. He denies injury with the fall. He states he has passed out in the past while drinking. He denies chest pain or shortness of breath. Denies other complaints. Physical Examination: Blood pressure 86/62. Patient is afebrile. Alert no acute distress. HEENT exam is unremarkable. Neck is supple. Lungs are clear and equal bilaterally. Heart is regular rate and rhythm. Abdomen is soft nontender nondistended. Extremities are unremarkable. Skin is warm and dry. No focal neurologic deficit. Remainder of exam is unremarkable. Emergency Department Course and Treatment: Patient was given IV fluids. EKG is sinus rhythm rate of 78, unchanged from previous. CT head shows no acute intracranial abnormality. Stable mild chronic ischemic changes. CBC, chemistries unremarkable. Troponin is negative. Alcohol 298. Patient was given IV fluids and observed in the ED. Patient feels much improved on reevaluation. Blood pressure is 102/67. He will be observed in the ED until sober. He will be checked out to the oncoming physician. Disposition: pending Impression: Syncope, alcohol intoxication This note was generated with [employer] dictation software. It may contain incorrect words, spelling, and punctuation that were not noted in review of the chart prior to signing ED Disposition - Plan for ED Patient: Referrals: Stuart Bacon MD [Primary Care Provider] -
[2019-10-01 18:43] LABS: Anion Gap 8 (5-15); BUN 5 mg/dL (7-18); BUN/Creat Ratio 4.6 RATIO (10-20); Calcium,Total 7.4 mg/dL (8.5-10.1); Chloride 111 mmol/L (98-107); Creatinine, Serum 1.08 mg/dL (0.70-1.30); EST Glomerular Filtration Rate 76 mL/min (>60); Est Glom Filt Rate - Afr Amer 91 mL/min (>60); Estimated Creatinine Clearance 78.19 ml/min; Glucose 87 mg/dL (74-106); Sodium Level 138 mmol/L (136-145)
--- NOTE | 2019-10-01 22:59 | ED.DEP ---
ED Disposition - Plan for ED Patient: Instructions: ED Fainting Uncertain Cause Referrals: Stuart Bacon MD [Primary Care Provider] -
[2019-10-02 00:17] VITALS: BP 105/82; PULSE 110; RESP 15
[2019-10-02 00:25] VITALS: BP 105/82; PULSE 110; RESP 15
== END 2019-10-02 07:28 | disposition short-term general hospital (02) ==
LOC: ED 18:45
PROVIDERS: Emergency Provider Emergency Medicine; PCP Family Medicine
DX: R55 Syncope and collapse (principal); F10.129 Alcohol abuse with intoxication, unspecified; J44.9 Chronic obstructive pulmonary disease, unspecified; I10 Essential (primary) hypertension
CPT/HCPCS: 70450; 80048; 80320; 84484; 85025; 93005; 96360; 96361; 99284; J7030; G0480

== ENCOUNTER → 2019-11-12 10:42 | Outpatient (CLI) | payer MEDICAID, SELFPAY ==
[2019-10-01 17:17] VITALS: BMI 30.9
--- NOTE | 2019-11-12 10:43 | ART_ITS ---
Reason For Study: PAOD Procedure A bilateral lower extremity continuous wave Doppler with analog waveform analysis,segmental pressures,and ankle brachial indexes without exercise. Left Segmental Pressures Left brachial= 145mmHg. Left posterior tibial artery = 149mmHg. Left dorsalis pedis artery = 146mmHg. Left digit = 122 mmHg. Right Segmental Pressures Right brachial= 135mmHg. Right posterior tibial artery = 158mmHg. Right dorsalis pedis artery = 160mmHg. Right digit = 144 mmHg. The right dorsalis pedis waveforms are triphasic. The right posterior tibial artery waveforms are triphasic. Indices The right ankle brachial index by the dorsalis pedis is 1.10. The right ankle brachial index by the posterior tibial artery is 1.09. The right digital-brachial index is 0.99. The left ankle brachial index by the dorsalis pedis is 1.01. The left ankle brachial index by the posterior tibial artery is 1.03. The left digital-brachial index is 0.88. Interpretation Summary Resting ankle-brachial indices appear bilaterally normal. Digital brachial indices are normal bilaterally Ordering Physician: Jamal Garvin Referring Physician: MD Jordi Stuart Performed By: Tiffany Perez RVT and Student
== END ==
PROVIDERS: PCP Family Medicine; Referring Provider Surgery; Visit Provider Surgery
DX: I77.9 Disorder of arteries and arterioles, unspecified (principal); Z98.890 Other specified postprocedural states
CPT/HCPCS: 93923

== ENCOUNTER 2019-12-15 17:49 | Emergency (ER) | payer MEDICAID, SELFPAY ==
[2019-11-23 07:50] VITALS: BMI 30.9
[2019-12-15 17:51] VITALS: BP 111/71; PULSE 75; RESP 16; TEMP 36.7; O2SAT 94; BMI 28.3
--- NOTE | 2019-12-15 18:08 | ED.DCSUM_ITS ---
History of Present Illness Chief Complaint: Fall Informant: Patient Narrative: Patient is a 54-year-old male who presents to the emergency department for neck pain and headache. The headache is on the posterior occipital portion. The neck pain is not midline states it is on the bilateral aspects and sometimes goes into his shoulders. No pain or paresthesias going down into the upper extremities. He denies any chest pain, shortness of breath or back pain. He denies any abdominal pain or nausea/vomiting. No vision changes. No issues with speech. He is not on blood thinners except for an aspirin. He has seen his PCP for this already. He has been taking Tylenol which has not been giving him much relief. Currently rates the pain is moderate. Movement does make the pain worse. Past Medical History - Allergies and Home Meds Allergies/Adverse Reactions: Allergies ANTIBIOTIC OINTMENT Adverse Reaction (Uncoded 12/15/19 17:50) Hives Primary Care Physician: Stuart Bacon MD [Primary Care Provider] - Prior records reviewed: Yes Past Medical History: - - Seizure disorder, peripheral vascular disease Surgical History: - - Reviewed Smoking Status: Current every day smoker Alcohol: Occasional Drugs: None - Family History Sibling Family History: Family History (Last Reviewed 11/16/19 @ 13:35 by Jacklyn Crawford) Grandmother Breast cancer Father Cancer Mother Heart disease Diabetes Kidney disease Family History: Reports: - Maternal Family History: Family History (Last Reviewed 11/16/19 @ 13:35 by Jacklyn Crawford) Grandmother Breast cancer Father Cancer Mother Heart disease Diabetes Kidney disease Family History: Reports: - Paternal Family History: Family History (Last Reviewed 11/16/19 @ 13:35 by Jacklyn Crawford) Grandmother Breast cancer Father Cancer Mother Heart disease Diabetes Kidney disease Family History: Reports: - Review of Systems All systems negative except as indicated General: Denies: Chills, Fever, Sweats Eyes: Denies: Visual changes - bilaterally, Diplopia ENT: Denies: Rhinorrhea, Sore throat Cardiovascular: Denies: Chest pain, Palpitations Respiratory: Denies: Dyspnea, Cough, Dyspnea on exertion Gastrointestinal: Denies: Abdominal pain, Nausea, Vomiting, Diarrhea Genitourinary: Denies: Dysuria, Hematuria, Frequency Musculoskeletal: Reports: Neck pain. Denies: Back pain, Extremity Pain Skin: Denies: Rash, Wounds Neurological: Reports: Headache. Denies: Weakness, Parasthesia, Numbness Hematologic: Denies: Easy bruising, Easy bleeding Physical Exam Vital Signs/Narrative: Vital Signs Temp Pulse Resp BP Pulse Ox 12/15/19 17:51 98.1 F 75 16 111/71 94 Inital Vital Signs reviewed: Yes General: Well nourished, Well developed, No Acute Distress Head: Normocephalic, Atraumatic Eyes: Perrl, EOMI ENT: Moist mucous membranes, No rhinorrhea Neck: Supple, - - Mild tenderness to palpation of the paraspinal musculature and trapezius muscle bilaterally. No midline spine tenderness or step-off sign. Has full range of motion. Area of headache is more along the superior aspect of neck. It is reproducible palpation as well. Cardiovascular: Regular rate, Regular rhythm, No murmurs Respiratory: No distress, CTA bilaterally, Chest nontender Abdomen: Soft, Nontender, Nondistended, Normal bowel sounds Back: Nontender, Normal Inspection Extremities: Nontender, No edema Skin: Normal color, No rash Neurological: Alert, Oriented x3, Cranial nerves II-XII grossly intact, Normal Strength, Normal Sensation Psychological: Normal affect, Normal Mood Diagnostic/Tx/Re-eval - Medical Decision Making Patient presents to the ED for neck pain and headache after a fall 1 month ago. I did offer the patient imaging but he is declining at this time. States he just want something for the pain. I did offer a muscle relaxer as this does seem to be muscle spasms. It is reproducible on physical exam. No midline spine tenderness to make me think of a fracture. No external signs of head trauma. Low concern for cranial hemorrhage. Again patient does not imaging and will follow-up with his PCP in the next few days. Patient does realize that the muscle relaxer can make him sleepy and is to avoid using alcohol and operating any heavy machinery with this. At this time will discharge home in stable condition. Warning signs and symptoms for which to return to the emerge department reviewed with him. He understands and is agreeable with this plan. ED Disposition - Plan for ED Patient: Disposition: Home or Assisted Living Diagnosis: Neck pain, Headache Instructions: ED Neck Back Pain General Prescriptions: Baclofen 10 mg PO TID 3 Days #9 tab Transmission Status: Pending to [id number] [facility] Referrals: Stuart Bacon MD [Primary Care Provider] -
== END 2019-12-15 18:26 | disposition home or self-care (01) ==
LOC: ED 18:15
PROVIDERS: Emergency Provider Emergency Medicine; PCP Family Medicine
DX: M54.2 Cervicalgia (principal); R51 Headache; F17.200 Nicotine dependence, unspecified, uncomplicated; Z79.82 Long term (current) use of aspirin
CPT/HCPCS: 99282

== ENCOUNTER → 2020-01-06 13:38 | Outpatient (CLI) | payer MEDICAID, SELFPAY ==
[2019-11-23 07:50] VITALS: BMI 30.9
[2019-12-15 17:51] VITALS: BMI 28.3
[2020-01-06 14:02] VITALS: PULSE 100; PULSE 101; PULSE 95; PULSE 99; O2SAT 90; O2SAT 91; O2SAT 92; O2SAT 93; O2SAT 94
--- NOTE | 2020-01-07 07:59 | PCM.PSN.6M ---
PSN 6 Minute Walk Test - 6 Minute Walk Test 6 Minute Walk Test: 6 Minute Walk Test PSN:6-Minute Walk Test Start: 01/06/20 14:02 Freq: Status: Active Protocol: [id number].[id number] Document 01/06/20 14:02 DELMI (Rec: 01/06/20 14:07 DELMI [id number]) 6 Minute Walk Test Date Performed 01/06/20 Time Performed 13:45 Height 5 ft 9 in Weight: 200 lb Weight in Pounds 200.[address]: Juanjose Bahena Assistive device used: None Pre-test Oxygen Delivery Method Room Air Pulse Ox (%) 94 Pulse Rate (60-100 beats/min) 95 Dyspnea Milli Scale (0-10) 0 Exertion Milli Scale (6-20) 6 1st minute Oxygen Delivery Method Room Air Pulse Ox (%) 92 Pulse Rate (60-100 beats/min) 99 2nd minute Oxygen Delivery Method Room Air Pulse Ox (%) 90 Pulse Rate (60-100 beats/min) 100 3rd minute Oxygen Delivery Method Room Air Pulse Ox (%) 91 Pulse Rate (60-100 beats/min) 101 H 4th minute Oxygen Delivery Method Room Air Pulse Ox (%) 93 Pulse Rate (60-100 beats/min) 100 5th minute Oxygen Delivery Method Room Air Pulse Ox (%) 91 Pulse Rate (60-100 beats/min) 101 H Number of Rests Taken 1 6th minute Oxygen Delivery Method Room Air Pulse Ox (%) 94 Pulse Rate (60-100 beats/min) 100 Dyspnea Milli Scale (0-10) 0 Exertion Milli Scale (6-20) 12 Post-test Oxygen Delivery Method Nasal Cannula Pulse Ox (%) 94 Pulse Rate (60-100 beats/min) 95 Full Laps Walked 15 Partial Lap, Number of Tiles Walked 40 Total Distance Walked (ft) 925 - Interpretation Interpretation: The patient ambulated 925 feet over the course of 6 minutes beginning on room air without assistive devices or breaks. Pretesting oxygen saturation was noted to be 94% on room air. With ambulation, the jimmie oxygen saturation was 90%. There was no significant exertional oxygen desaturation. - Recommendations Recommendations: There is no indication for the use of supplemental oxygen at this time.
== END ==
PROVIDERS: PCP Family Medicine; Referring Provider Internal Medicine Critical Care Medicine; Visit Provider Internal Medicine Critical Care Medicine
DX: J44.9 Chronic obstructive pulmonary disease, unspecified (principal); F17.210 Nicotine dependence, cigarettes, uncomplicated
CPT/HCPCS: 94618

== ENCOUNTER → 2020-01-11 12:35 | Outpatient (CLI) | payer MEDICAID, SELFPAY ==
[2019-11-23 07:50] VITALS: BMI 30.9
[2019-12-15 17:51] VITALS: BMI 28.3
--- NOTE | 2020-01-11 15:36 | PFTCOMP_ITS ---
COMPLETE PULMONARY FUNCTION TEST INTERPRETATION Brief HPI: Patient is a 54 year old male, currently under the care of Dr. Bahena, who presents to [facility] for complete pulmonary function tests secondary to diagnosis of COPD. Respiratory therapist reports poor effort and reproducible results. Interpretation: Forced expiration spirometry shows a mild large airways obstructive ventilatory defect with an FEV1 of 73% predicted. There is no significant bronchodilator response by strict ATS criteria. Spirograms are of good quality and plateau slowly, indicating slowly emptying areas of the lungs. The respiratory flow volume loop shows decreased expiratory flow rates at high lung volumes consistent with small airways obstruction. Lung volumes by body plethysmography show a normal total lung capacity at 6.42 L, 95% predicted. All other lung volumes are within normal limits. Diffusion capacity by carbon monoxide is decreased at 56% predicted. The airway resistance is elevated. No previous pulmonary function tests were available for review. Impression: Irreversible mild large airways obstructive ventilatory defect with a symmetric reduction diffusion capacity, and a pattern consistent with COPD.
== END ==
PROVIDERS: PCP Family Medicine; Referring Provider Internal Medicine Critical Care Medicine; Visit Provider Internal Medicine Critical Care Medicine
DX: J44.9 Chronic obstructive pulmonary disease, unspecified (principal); F17.210 Nicotine dependence, cigarettes, uncomplicated
CPT/HCPCS: 94060; 94726; 94729

== ENCOUNTER → 2020-01-13 12:05 | Outpatient (CLI) | payer MEDICAID, SELFPAY ==
[2019-12-15 17:51] VITALS: BMI 28.3
--- NOTE | 2020-01-13 12:08 | RAD_ITS ---
STUDY: X-RAY - LUMBAR SPINE REASON FOR EXAM: Male, 54 years old. CHRONIC LBP. NKI TECHNIQUE: 5 view(s) of the lumbar spine were obtained including oblique views. COMPARISON: Comparison is made with prior study dated 11/13/2014. FINDINGS: Normal lumbar lordosis. There is no substantial scoliosis. There is a normal alignment of the vertebrae. Normal vertebral bodies and endplates. Normal disc space heights. There is atherosclerotic calcification of the abdominal aorta without a demonstrated aneurysm. Vascular stents are seen in the common iliac arteries bilaterally. RAD/L/S Spine Min 4 Views IMPRESSION: Normal x-ray examination of the lumbar spine. Electronically Signed: Yogi Vicente, at 15:37 EDT , Service support ,
== END ==
PROVIDERS: PCP Family Medicine; Visit Provider Anesthesiology Pain Medicine
DX: G89.29 Other chronic pain (principal); M54.5 Low back pain
CPT/HCPCS: 72110

== ENCOUNTER → 2020-04-14 12:43 | Outpatient (CLI) | payer MEDICAID, SELFPAY ==
[2020-01-18 08:53] VITALS: BMI 29.5
--- NOTE | 2020-04-14 12:48 | RAD_ITS ---
STUDY: X-RAY - RIGHT SHOULDER REASON FOR EXAM: Male, 55 years old. Right anterior shoulder pain. TECHNIQUE: 4 view(s) of the shoulder. COMPARISON: None. FINDINGS: Normal glenohumeral articulation. Normal acromioclavicular joint. Normal acromion. Normal humeral head and visualized proximal humerus. The soft tissue structures are unremarkable. Normal visualized pulmonary apex. RAD/Shoulder min 2 Views IMPRESSION: Normal x-ray examination of the shoulder. Electronically Signed: Yogi Vicente, at 13:33 EST , Service support ,
== END ==
PROVIDERS: PCP Family Medicine; Referring Provider Anesthesiology Pain Medicine; Visit Provider Anesthesiology Pain Medicine
DX: M25.511 Pain in right shoulder (principal)
CPT/HCPCS: 73030

== ENCOUNTER 2020-07-04 06:16 | Emergency (ER) | payer MEDICAID, SELFPAY ==
[2020-04-18 13:13] VITALS: BMI 29.8
[2020-07-04] VITALS (8 sets, daily range): BP systolic 64–125; BP diastolic 49–78; PULSE 64–81; RESP 16–21; TEMP 29.5–34.9; O2SAT 96–100; BMI 27.7
[2020-07-04] MEDS: fentaNYL 100 MCG/2 ML Ampul 75 MCG IV (06:27)
[2020-07-04] MEDS: 0.9% Normal Saline 1,000 ML 1000 ML IV ×2 (06:30→06:33)
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
[2020-07-04 06:39] LABS: Absolute Lymphocyte Count 2.93 X10^3/uL (0.83-4.51); Absolute Neutrophil Count 5.3 X10^3/uL (2.0-7.7); Basophil# 0.07 X10^3/uL; Basophil% 0.7 % (0-1); Eosinophil# 0.12 X10^3/uL; Eosinophils% 1.3 % (0-5); Hematocrit 46.4 % (40-54); Hemoglobin 15.8 g/dL (13.0-16.5); Lymphocyte # 2.93 X10^3/ul (4.0); Lymphocyte % 31.2 % (19-41); Mean Corp Hgb Conc 34.1 g/dL (32-36); Mean Corpuscular Hgb 32.4 pg (27.0-32.0); Mean Corpuscular Volume 95.1 fL (80-94); Monocyte# 0.85 X10^3/uL; Monocyte% 9.1 % (0-10); NRBC Flagged by Analyzer 0 % (0-5); Neutrophil % 56.5 % (47-70); Platelet Count 233 K/mm3 (150-450); RBC Distribution Width CV 15.1 % (11.6-14.6); RBC Distribution Width SD 53.1 fl (35.1-43.9); Red Blood Count 4.88 M/mm3 (4.6-6.2); White Blood Count 9.4 K/mm3 (4.4-11.0)
[2020-07-04 06:40] LABS: Bedside Glucose 162 mg/dL (70-110)
--- NOTE | 2020-07-04 06:42 | NURSING ---
[facility], ETA 25 MIN
--- NOTE | 2020-07-04 06:43 | ED.RN ---
report to [facility] eta 25 mins
[2020-07-04] MEDS: HYDROmorphone 1 MG/ML Syringe IV (06:47)
[2020-07-04 06:57] LABS: Anion Gap 14 (5-15); BUN 5 mg/dL (7-18); BUN/Creat Ratio 4.7 RATIO (10-20); Calcium,Total 8.4 mg/dL (8.5-10.1); Chloride 103 mmol/L (98-107); Creatinine, Serum 1.07 mg/dL (0.70-1.30); EST Glomerular Filtration Rate 76 mL/min (>60); Est Glom Filt Rate - Afr Amer 92 mL/min (>60); Estimated Creatinine Clearance 80.54 ml/min; Glucose 167 mg/dL (74-106); Potassium 4.1 mmol/L (3.5-5.1); Sodium Level 134 mmol/L (136-145)
[2020-07-04] MEDS: Cefazolin 1 GM/50 ML BAG IV (06:59)
[2020-07-04 07:03] LABS: International Normalized Ratio 1.9
[2020-07-04 07:05] LABS: Partial Thromboplast Time 36.5 Seconds (24.1-36.2)
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
== END 2020-07-04 07:49 | disposition short-term general hospital (02) ==
PROVIDERS: Emergency Provider Emergency Medicine; PCP Family Medicine
DX: T22.231A Burn of second degree of right upper arm, initial encounter (principal); T21.20XA Burn of second degree of trunk, unspecified site, initial encounter; T24.211A Burn of second degree of right thigh, initial encounter; T31.40 Burns involving 40-49% of body surface with 0% to 9% third degree burns
CPT/HCPCS: 80048; 82077; 82962; 85025; 85610; 85730; 96365; 96375; 99251; 99285; J7030; A4216; G0463